=== PATIENT | female | born 1945 | race Caucasian/White ===

== ENCOUNTER → 2017-08-01 12:31 | Outpatient (CLI) | payer MEDICARE, OTHER, SELFPAY ==
[2017-08-01 12:54] LABS: Basophils % 0.7 % (0.1-2.0); Eosinophils # 0.1 K/mm3 (0.0-0.4); Eosinophils % 3.4 % (0.1-12.0); Hematocrit 36.6 % (37.0-47.0); Hemoglobin 11.5 g/dL (12.2-16.2); Lymphocytes # 1.4 K/mm3 (0.7-4.5); Lymphocytes % 34.6 K/mm3 (10-50); Mean Corpuscular HGB Conc 31.4 g/dL (31.8-35.4); Mean Corpuscular Hemoglobin 32.4 pg (27.0-31.2); Mean Corpuscular Volume 103.3 fl (81-99); Mean Platelet Volume 7.9 fl (7.4-10.4); Monocytes # 0.3 K/mm3 (0.1-1.0); Monocytes % 7.1 % (1.7-9.3); Neutrophils # 2.2 K/mm3 (1.8-7.8); Neutrophils % 54.1 % (37.0-80.0); Platelet Count 166 K/mm3 (142-424); Red Blood Count 3.55 M/mm3 (4.20-5.40); Red Cell Distribution Width 13.8 % (11.5-17.5); White Blood Count 4.1 K/mm3 (4.8-10.8)
[2017-08-02 08:31] LABS: Iron 88 ug/dL (27-139); UIBC 190 ug/dL (118-369)
[2017-08-02 09:34] LABS: Iron Saturation 32 % (15-55)
== END ==
PROVIDERS: PCP Emergency Medicine; Visit Provider Internal Medicine
DX: D64.9 Anemia, unspecified (principal)
CPT/HCPCS: 83550; 85025

== ENCOUNTER → 2017-08-10 10:30 | Outpatient (CLI) | payer MEDICARE, OTHER, SELFPAY ==
--- NOTE | 2017-08-10 10:35 | XR_ITS ---
XR pelvis 1-2V HISTORY: Pain ITS.REASON: back pain ORDERING PHYSICIAN: JESSICA Valencia PATIENT AGE: 72 years COMPARISON: None FINDINGS: There is a total left hip prosthesis present which is in good alignment. No acute fracture or dislocation is evident. There are mild osteoarthritic changes of the right hip. IMPRESSION: No acute finding. 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
--- NOTE | 2017-08-10 10:35 | XR_ITS ---
EXAM: XR thoracic spine 3V HISTORY: ITS.REASON: thoracic back pain COMPARISON: None FINDINGS: There is mild lower thoracic curvature convex left. Marginal osteophytes are present in the lower thoracic spine. No acute fracture or dislocation. Mild multilevel degenerative disc disease is present in the midthoracic spine. There is mild wedging involving what appears to represent T7 without obvious retropulsion. This is unchanged from a prior lateral chest radiograph of 09/14/2016. No lytic or blastic change. IMPRESSION: Thoracic spondylosis with multilevel osteophytes and mild retained disc disease and mild chronic wedging of T7
--- NOTE | 2017-08-10 10:35 | XR_ITS ---
EXAM: XR lumbar spine min 4V HISTORY: Low back pain ITS.REASON: back pain ORDERING PHYSICIAN: JESSICA Valencia PATIENT AGE: 72 years COMPARISON: None FINDINGS: There is mild lumbar scoliosis convex right measuring 11 degrees. There is a mild rotary component to the scoliosis. There is multilevel degenerative disc disease from T12 to S1. This is worse at L5-S1 and L1-L2. Small anterior osteophytes are present from L1 to S1. Facet arthritic changes are also noted at L4-5 and L5-S1. No acute fracture or dislocation. No lytic or blastic change. IMPRESSION: Dextroscoliosis of the lumbar spine with adjacent disc disease and facet arthritic change as described above.
== END ==
PROVIDERS: PCP Physician Assistant; Visit Provider Physician Assistant
DX: M54.6 Pain in thoracic spine (principal); M54.41 Lumbago with sciatica, right side
CPT/HCPCS: 72072; 72110; 72170

== ENCOUNTER → 2017-10-17 09:56 | Outpatient (CLI) | payer MEDICARE, OTHER, SELFPAY ==
--- NOTE | 2017-10-17 09:57 | MM_ITS ---
MM Dig screening mamm BI w/CAD CAD Screening COMPARISON: Digital mammograms 09/18/2016 and 08/13/2012 INDICATION: There is no personal or family history of breast cancer TECHNIQUE: Standard CC and MLO images were obtained. R2 CAD reviewed. FINDINGS: Prominent heterogenic fibroglandular densities are seen in the central portions of both breast somewhat lessening the sensitivity of mammography. There is a collection of microcalcifications in the subareolar region of each breast only seen on the CAD images. They are likely benign but were not definitely present previously. Recommend the patient return for spot compression magnification views of the subareolar region of each breast. There is faint arterial calcification in each breast. IMPRESSION: Diffuse heterogenic density with possible new microcalcifications in each breast BI-RADS Category: 0 Need Additional Imaging Evaluation RECOMMENDED FOLLOW-UP: IMM - IMMEDIATE FOLLOW-UP RECOMMENDED (A letter has been sent to the patient regarding results of the study.)
== END ==
PROVIDERS: PCP Physician Assistant; Visit Provider Emergency Medicine
DX: Z12.31 Encounter for screening mammogram for malignant neoplasm of breast (principal)
CPT/HCPCS: 77067

== ENCOUNTER → 2017-10-31 12:49 | Outpatient (CLI) | payer MEDICARE, OTHER, SELFPAY ==
--- NOTE | 2017-10-31 12:50 | MM_ITS ---
MM Dig spot mag LT, MM Dig spot mag RT INDICATION: Follow-up abnormal mammogram ORDERING PHYSICIAN: JESSICA Valencia PATIENT AGE: 72 years COMPARISON: 10/17/2017, 09/18/2016, 08/27/2012 TECHNIQUE: Magnification views performed of both breasts FINDINGS: Left breast: Benign-appearing vascular calcifications are present. No suspicious microcalcifications are evident. Right breast: Benign-appearing calcification noted in the retroareolar region similar to the previous exam of 09/18/2016. No suspicious microcalcifications evident. IMPRESSION: Benign findings, no evidence of malignancy BI-RADS Category: 2 Benign Finding(s) RECOMMENDED FOLLOW-UP: 1YR - 1 YEAR FOLLOW-UP (A letter has been sent to the patient regarding results of the study.)
== END ==
PROVIDERS: PCP Physician Assistant; Visit Provider Physician Assistant
DX: R92.8 Other abnormal and inconclusive findings on diagnostic imaging of breast (principal)
CPT/HCPCS: 77065; 77066

== ENCOUNTER → 2018-01-09 09:57 | Outpatient (REF) | payer MEDICARE, OTHER, SELFPAY ==
[2018-01-09 14:04] LABS: Basophils % 0.4 % (0.1-2.0); Eosinophils # 0.1 K/mm3 (0.0-0.4); Eosinophils % 3.2 % (0.1-12.0); Hematocrit 35.4 % (37.0-47.0); Hemoglobin 11.1 g/dL (12.2-16.2); Lymphocytes # 1.6 K/mm3 (0.7-4.5); Lymphocytes % 38.6 K/mm3 (10-50); Mean Corpuscular HGB Conc 31.5 g/dL (31.8-35.4); Mean Corpuscular Volume 101.6 fl (81-99); Mean Platelet Volume 8.1 fl (7.4-10.4); Monocytes # 0.3 K/mm3 (0.1-1.0); Monocytes % 7.3 % (1.7-9.3); Neutrophils # 2.1 K/mm3 (1.8-7.8); Neutrophils % 50.6 % (37.0-80.0); Platelet Count 170 K/mm3 (142-424); Red Blood Count 3.49 M/mm3 (4.20-5.40); Red Cell Distribution Width 14.8 % (11.5-17.5); White Blood Count 4.2 K/mm3 (4.8-10.8)
[2018-01-09 14:31] LABS: Alanine Aminotransferase 32 U/L (12-78); Albumin Level 3.5 gm/dL (3.4-5.0); Albumin/Globulin Ratio 1.1 (1.1-1.8); Alkaline Phosphatase 45 U/L (46-116); Anion Gap 14.3 mEq/L (5-15); Aspartate Amino Transferase 12 U/L (15-37); Bilirubin,Total 0.5 mg/dL (0.2-1.0); Blood Urea Nitrogen 15 mg/dL (7-18); Calcium 9.1 mg/dL (8.5-10.1); Carbon Dioxide 27 mmol/L (21.0-32.0); Chloride 106 mmol/L (98-107); Chol/HDL Ratio 2.1 (1-3.5); Cholesterol 192 mg/dL (140-200); Creatinine,Serum 0.89 mg/dL (0.55-1.02); Estimated Glomerular Filt Rate 62 ml/min (>60); GFR (African American) 75 ML/MIN (>60); Globulin 3.2 gm/dl (1.3-3.2); Glucose 92 mg/dL (74-106); HDL Cholesterol 91 mg/dL (29-89); Potassium 4.3 mmoL/L (3.5-5.1); Sodium 143 mmol/L (136-145); T4 (Thyroxine) 8.8 ug/dl (4.7-13.3); Thyroid Stimulating Hormone 4.01 uIU/ml (0.358-3.740); Total Protein,Serum 6.7 gm/dL (6.4-8.2)
[2018-01-09 14:51] LABS: LDL Cholesterol 83 mg/dL (0-130); Triglycerides 90 mg/dL (30-200); VLDL Cholesterol 18 mg/dL (0-40)
[2018-01-11 13:22] LABS: Vitamin D 25 Hydroxy 27.3 ng/mL (30.0-100.0)
== END ==
LOC: LAB 09:57
PROVIDERS: Visit Provider Physician Assistant
DX: E03.9 Hypothyroidism, unspecified (principal); E78.5 Hyperlipidemia, unspecified; D64.9 Anemia, unspecified
CPT/HCPCS: 80053; 80061; 82652; 84436; 84443; 85025

== ENCOUNTER → 2018-03-07 07:41 | Outpatient (CLI) | payer MEDICARE, OTHER, SELFPAY | PROVIDERS: PCP Emergency Medicine; Visit Provider Emergency Medicine | DX: M50.90 Cervical disc disorder, unspecified, unspecified cervical region (principal) ==

== ENCOUNTER → 2018-04-15 09:38 | Outpatient (CLI) | payer MEDICARE, OTHER, SELFPAY ==
[2018-04-15 14:21] LABS: Basophils % 0.8 % (0.1-2.0); Eosinophils # 0.1 K/mm3 (0.0-0.4); Hematocrit 36.9 % (37.0-47.0); Hemoglobin 11.5 g/dL (12.2-16.2); Lymphocytes # 1.2 K/mm3 (0.7-4.5); Lymphocytes % 29.5 % (10-50); Mean Corpuscular Hemoglobin 30.7 pg (27.0-31.2); Mean Corpuscular Volume 98.9 fl (81-99); Mean Platelet Volume 8.2 fl (7.4-10.4); Monocytes # 0.3 K/mm3 (0.1-1.0); Monocytes % 7.6 % (1.7-9.3); Neutrophils # 2.4 K/mm3 (1.8-7.8); Neutrophils % 59.1 % (37.0-80.0); Platelet Count 198 K/mm3 (142-424); Red Blood Count 3.74 M/mm3 (4.20-5.40); Red Cell Distribution Width 13.4 % (11.5-17.5)
[2018-04-15 14:35] LABS: Chol/HDL Ratio 2.3 (1-3.5); Cholesterol 164 mg/dL (140-200); HDL Cholesterol 70 mg/dL (29-89); LDL Cholesterol 75 mg/dL (0-130); T4 (Thyroxine) 9.4 ug/dl (4.7-13.3); Thyroid Stimulating Hormone 0.57 uIU/ml (0.358-3.740); Triglycerides 97 mg/dL (30-200); VLDL Cholesterol 19 mg/dL (0-40)
[2018-04-16 08:10] LABS: Alanine Aminotransferase 30 U/L (12-78); Albumin Level 3.9 gm/dL (3.4-5.0); Albumin/Globulin Ratio 1.2 (1.1-1.8); Alkaline Phosphatase 63 U/L (46-116); Anion Gap 15.2 mEq/L (5-15); Aspartate Amino Transferase 14 U/L (15-37); Bilirubin,Total 0.3 mg/dL (0.2-1.0); Blood Urea Nitrogen 14 mg/dL (7-18); Calcium 9.1 mg/dL (8.5-10.1); Carbon Dioxide 26 mmol/L (21.0-32.0); Chloride 103 mmol/L (98-107); Creatinine,Serum 0.83 mg/dL (0.55-1.02); Estimated Glomerular Filt Rate 67 ml/min (>60); GFR (African American) 81 ML/MIN (>60); Globulin 3.3 gm/dl (1.3-3.2); Glucose 91 mg/dL (74-106); Potassium 4.2 mmoL/L (3.5-5.1); Sodium 140 mmol/L (136-145); Total Protein,Serum 7.2 gm/dL (6.4-8.2)
[2018-04-16 15:37] LABS: Ferritin 382 ng/mL (8-388)
[2018-04-18 08:27] LABS: Iron 59 ug/dL (27-139); UIBC 208 ug/dL (118-369)
[2018-04-18 09:41] LABS: Iron Saturation 22 % (15-55)
== END ==
PROVIDERS: Visit Provider Physician Assistant
DX: N89.8 Other specified noninflammatory disorders of vagina (principal); D64.9 Anemia, unspecified; R22.0 Localized swelling, mass and lump, head; E03.9 Hypothyroidism, unspecified
CPT/HCPCS: 80053; 80061; 82652; 82728; 83540; 83550; 84436; 84443; 85025; 87210

== ENCOUNTER → 2018-04-15 14:07 | Outpatient (CLI) | payer MEDICARE, OTHER, SELFPAY | PROVIDERS: Visit Provider Physician Assistant | DX: D64.9 Anemia, unspecified (principal); N89.8 Other specified noninflammatory disorders of vagina; R22.0 Localized swelling, mass and lump, head; R22.1 Localized swelling, mass and lump, neck; I25.10 Atherosclerotic heart disease of native coronary artery without angina pectoris; I10 Essential (primary) hypertension; E03.9 Hypothyroidism, unspecified | CPT/HCPCS: 80053; 80061; 82652; 82728; 83540; 83550; 84436; 84443; 85025; 87210 ==

== ENCOUNTER → 2018-05-03 14:07 | Outpatient (CLI) | payer MEDICARE, OTHER, SELFPAY ==
--- NOTE | 2018-05-03 14:11 | US_ITS ---
US soft tissue head and neck CLINICAL INDICATION: ITS.REASON: swelling left side of neck ORDERING PHYSICIAN: JESSICA Valencia PATIENT AGE: 72 years Comparison: None FINDINGS: General survey is performed of the left neck at the palpable abnormality. There is an area of heterogeneous echogenicity measuring 3 x 1.6 cm which may represent a lipoma. This does not represent a cystic collection. IMPRESSION: Palpable abnormality of the left neck may represent a 3 x 1.6 cm lipoma
== END ==
PROVIDERS: PCP Emergency Medicine; Visit Provider Physician Assistant
DX: R22.0 Localized swelling, mass and lump, head (principal); R22.1 Localized swelling, mass and lump, neck
CPT/HCPCS: 76536

== ENCOUNTER → 2018-08-08 09:47 | Outpatient (CLI) | payer MEDICARE, OTHER, SELFPAY ==
[2018-08-08 13:56] LABS: Basophils % 0.8 % (0.1-2.0); Eosinophils # 0.1 K/mm3 (0.0-0.4); Eosinophils % 3.9 % (0.1-12.0); Hematocrit 35.8 % (37.0-47.0); Hemoglobin 11.5 g/dL (12.2-16.2); Lymphocytes # 1.2 K/mm3 (0.7-4.5); Lymphocytes % 35.4 % (10-50); Mean Corpuscular HGB Conc 32.2 g/dL (31.8-35.4); Mean Corpuscular Hemoglobin 31.7 pg (27.0-31.2); Mean Corpuscular Volume 98.5 fl (81-99); Mean Platelet Volume 8.5 fl (7.4-10.4); Monocytes # 0.3 K/mm3 (0.1-1.0); Monocytes % 8.4 % (1.7-9.3); Neutrophils # 1.7 K/mm3 (1.8-7.8); Neutrophils % 51.5 % (37.0-80.0); Platelet Count 168 K/mm3 (142-424); Red Blood Count 3.63 M/mm3 (4.20-5.40); Red Cell Distribution Width 13.4 % (11.5-17.5); White Blood Count 3.3 K/mm3 (4.8-10.8)
[2018-08-08 14:08] LABS: Alanine Aminotransferase 24 U/L (12-78); Albumin Level 3.5 gm/dL (3.4-5.0); Albumin/Globulin Ratio 1.2 (1.1-1.8); Alkaline Phosphatase 49 U/L (46-116); Aspartate Amino Transferase 14 U/L (15-37); Bilirubin,Total 0.3 mg/dL (0.2-1.0); Blood Urea Nitrogen 13 mg/dL (7-18); Calcium 9.2 mg/dL (8.5-10.1); Carbon Dioxide 25 mmol/L (21.0-32.0); Chloride 108 mmol/L (98-107); Chol/HDL Ratio 2.4 (1-3.5); Cholesterol 172 mg/dL (140-200); Creatinine,Serum 0.75 mg/dL (0.55-1.02); Estimated Glomerular Filt Rate 75 ml/min (>60); GFR (African American) 91 ML/MIN (>60); Glucose 91 mg/dL (74-106); HDL Cholesterol 73 mg/dL (29-89); LDL Cholesterol 78 mg/dL (0-130); Sodium 145 mmol/L (136-145); T4 (Thyroxine) 7.8 ug/dl (4.7-13.3); Thyroid Stimulating Hormone 0.53 uIU/ml (0.358-3.740); Total Protein,Serum 6.5 gm/dL (6.4-8.2); Triglycerides 106 mg/dL (30-200); VLDL Cholesterol 21 mg/dL (0-40)
[2018-08-09 09:01] LABS: Vitamin D 25 Hydroxy 51.2 ng/mL (30.0-100.0)
== END ==
PROVIDERS: Visit Provider Physician Assistant
DX: N89.8 Other specified noninflammatory disorders of vagina (principal); E03.9 Hypothyroidism, unspecified; E78.5 Hyperlipidemia, unspecified; E55.9 Vitamin D deficiency, unspecified
CPT/HCPCS: 80053; 80061; 82652; 84436; 84443; 85025; 87210

== ENCOUNTER → 2018-08-19 09:24 | Outpatient (CLI) | payer MEDICARE, OTHER, SELFPAY ==
[2018-08-21 09:26] LABS: Peripheral Smear Review Scanned Result
== END ==
PROVIDERS: Visit Provider Physician Assistant
DX: D70.9 Neutropenia, unspecified (principal)
CPT/HCPCS: 36415; 85060

== ENCOUNTER → 2018-11-19 10:37 | Outpatient (CLI) | payer MEDICARE, OTHER, SELFPAY ==
--- NOTE | 2018-11-19 10:41 | MM_ITS ---
MM Dig screening mamm BI w/CAD CAD Screening COMPARISON: Digital mammograms with CAD 09/18/2016 INDICATION: There is no personal or family history of breast cancer TECHNIQUE: Standard CC and MLO images were obtained. R2 CAD reviewed. FINDINGS: Moderate diffuse breast density is seen in both breast. There is faint arterial calcification in each breast. There is no suspicious lesion and there are no suspicious microcalcifications. IMPRESSION: Fibrofatty parenchyma with no suspicious lesion seen BI-RADS Category: 2 Benign Finding(s) RECOMMENDED FOLLOW-UP: 1YR - 1 YEAR FOLLOW-UP (A letter has been sent to the patient regarding results of the study.)
== END ==
PROVIDERS: PCP Emergency Medicine; Visit Provider Emergency Medicine
DX: Z12.31 Encounter for screening mammogram for malignant neoplasm of breast (principal)
CPT/HCPCS: 77067

== ENCOUNTER → 2018-12-13 13:35 | Outpatient (CLI) | payer MEDICARE, OTHER, SELFPAY | PROVIDERS: Visit Provider Nurse Practitioner Family | DX: S51.811A Laceration without foreign body of right forearm, initial encounter (principal) | CPT/HCPCS: 87070; 87205 ==

== ENCOUNTER → 2019-01-27 16:01 | Outpatient (CLI) | payer MEDICARE, OTHER, SELFPAY | PROVIDERS: Visit Provider Physician Assistant | DX: N89.8 Other specified noninflammatory disorders of vagina (principal) | CPT/HCPCS: 87210 ==

== ENCOUNTER → 2019-03-31 13:59 | Outpatient (CLI) | payer MEDICARE, OTHER, SELFPAY ==
[2019-03-31 14:14] LABS: Basophils % 0.9 % (0.1-2.0); Eosinophils # 0.3 K/mm3 (0.0-0.4); Eosinophils % 5.6 % (0.1-12.0); Hematocrit 36.5 % (37.0-47.0); Hemoglobin 11.3 g/dL (12.2-16.2); Lymphocytes # 1.4 K/mm3 (0.7-4.5); Lymphocytes % 28.9 % (10-50); Mean Corpuscular Hemoglobin 31.8 pg (27.0-31.2); Mean Corpuscular Volume 102.7 fl (81-99); Mean Platelet Volume 9.7 fl (7.4-10.4); Monocytes # 0.4 K/mm3 (0.1-1.0); Monocytes % 8.3 % (1.7-9.3); Neutrophils # 2.6 K/mm3 (1.8-7.8); Neutrophils % 56.4 % (37.0-80.0); Platelet Count 186 K/mm3 (142-424); Red Blood Count 3.56 M/mm3 (4.20-5.40); Red Cell Distribution Width 13.8 % (11.5-17.5); White Blood Count 4.7 K/mm3 (4.8-10.8)
[2019-03-31 16:35] LABS: Alanine Aminotransferase 23 U/L (12-78); Albumin Level 3.5 gm/dL (3.4-5.0); Albumin/Globulin Ratio 1.2 (1.1-1.8); Alkaline Phosphatase 54 U/L (46-116); Anion Gap 15.1 mEq/L (5-15); Aspartate Amino Transferase 15 U/L (15-37); Bilirubin,Total 0.3 mg/dL (0.2-1.0); Blood Urea Nitrogen 15 mg/dL (7-18); Calcium 8.9 mg/dL (8.5-10.1); Carbon Dioxide 23 mmol/L (21.0-32.0); Chloride 109 mmol/L (98-107); Chol/HDL Ratio 2.1 (1-3.5); Cholesterol 173 mg/dL (140-200); Creatinine,Serum 0.83 mg/dL (0.55-1.02); Estimated Glomerular Filt Rate 67 ml/min (>60); GFR (African American) 81 ML/MIN (>60); Globulin 2.9 gm/dl (1.3-3.2); Glucose 95 mg/dL (74-106); HDL Cholesterol 83 mg/dL (29-89); LDL Cholesterol 68 mg/dL (0-130); Potassium 4.1 mmoL/L (3.5-5.1); Sodium 143 mmol/L (136-145); T4 (Thyroxine) 9.6 ug/dl (4.7-13.3); Thyroid Stimulating Hormone 0.33 uIU/ml (0.358-3.740); Total Protein,Serum 6.4 gm/dL (6.4-8.2); Triglycerides 111 mg/dL (30-200); VLDL Cholesterol 22 mg/dL (0-40)
[2019-04-02 10:22] LABS: Vitamin D 25 Hydroxy 71.2 ng/mL (30.0-100.0)
[2019-04-02 10:24] LABS: Folate >20.0 ng/mL (>3.0); Vitamin B12 388 pg/mL (232-1245)
== END ==
PROVIDERS: Visit Provider Physician Assistant
DX: D64.9 Anemia, unspecified (principal); E03.9 Hypothyroidism, unspecified; R53.83 Other fatigue
CPT/HCPCS: 80053; 80061; 82607; 82652; 82746; 84436; 84443; 85025

== ENCOUNTER → 2019-05-22 10:11 | Outpatient (CLI) | payer MEDICARE, OTHER, SELFPAY ==
[2019-05-22 10:54] LABS: Basophils % 0.6 % (0.1-2.0); Eosinophils # 0.3 K/mm3 (0.0-0.4); Eosinophils % 6.6 % (0.1-12.0); Hematocrit 35.6 % (37.0-47.0); Hemoglobin 11.1 g/dL (12.2-16.2); Lymphocytes # 1.4 K/mm3 (0.7-4.5); Lymphocytes % 30.9 % (10-50); Mean Corpuscular HGB Conc 31.1 g/dL (31.8-35.4); Mean Corpuscular Hemoglobin 30.8 pg (27.0-31.2); Mean Corpuscular Volume 99.2 fl (81-99); Mean Platelet Volume 8.9 fl (7.4-10.4); Monocytes # 0.3 K/mm3 (0.1-1.0); Monocytes % 7.5 % (1.7-9.3); Neutrophils # 2.4 K/mm3 (1.8-7.8); Neutrophils % 54.4 % (37.0-80.0); Platelet Count 171 K/mm3 (142-424); Red Blood Count 3.59 M/mm3 (4.20-5.40); Red Cell Distribution Width 13.4 % (11.5-17.5); White Blood Count 4.4 K/mm3 (4.8-10.8)
--- NOTE | 2019-05-22 10:56 | XR_ITS ---
PROCEDURE: XR CHEST 2V CLINICAL HISTORY: Pre op Left TKR Cough and congestion COMPARISON: CXR CHEST(2 VIEWS-NOT PORTABLE) from 03/30/2015 CXR1 CHEST-PORTABLE from 02/21/2016 CXR CHEST(2 VIEWS-NOT PORTABLE) from 09/14/2016 FINDINGS: The cardiomediastinal silhouette and pulmonary vascularity are within normal limits. There is mild tortuosity/ectasia of the descending thoracic aorta not significantly changed. Lungs are clear. There is an old left 5th rib fracture. No acute bony abnormalities. IMPRESSION: No change with no acute finding Dictated by: Isrrael Suggs MD 05/22/2019 13:19 Electronically signed by Isrrael Suggs MD in [place] 05/22/2019 13:19
[2019-05-22 10:57] LABS: Microscopic, Urine URINE MICROSCOPIC (MICROSCOPIC)
--- NOTE | 2019-05-22 10:57 | ECG_ITS ---
APPROVED REPORT Exam: Resting ECG HR:59 bpm ECG Measurements Heart Rate 59 AXES ME 198 P -1 QRSd 78 QRS 2 QT 412 T -5 QTc 407 <Conclusion> Sinus bradycardia Otherwise normal ECG Electronically signed by : Robert Patel, 05/22/2019 12:55:09
[2019-05-22 11:04] LABS: Prothrombin Time 10.4 seconds (9.4-11.8)
[2019-05-22 11:16] LABS: Appearance,Urine CLEAR (Clear); Bilirubin,Urine Negative (Negative); Blood, Urine Negative (Negative); Color,Urine YELLOW (Yellow); Glucose,Urine (UA) Negative (Negative); Ketones,Urine TRACE (Negative); Leukocyte Esterase,Urine Negative (Negative); Nitrate,Urine Negative (Negative); PH,Urine 5.5 (5.0-8.5); Protein,Urine Negative (Negative); Specific Gravity, Urine >= 1.030 (1.005-1.030); Urobilinogen,Urine 0.2 EU/dl (0.2)
[2019-05-22 11:22] LABS: WBC,Urine Occasional #/hpf (0-3)
[2019-05-22 12:10] LABS: Alanine Aminotransferase 28 U/L (12-78); Albumin Level 3.5 gm/dL (3.4-5.0); Albumin/Globulin Ratio 1.2 (1.1-1.8); Alkaline Phosphatase 59 U/L (46-116); Anion Gap 13.8 mEq/L (5-15); Aspartate Amino Transferase 16 U/L (15-37); Bilirubin,Total 0.4 mg/dL (0.2-1.0); Blood Urea Nitrogen 20 mg/dL (7-18); Carbon Dioxide 25 mmol/L (21.0-32.0); Chloride 106 mmol/L (98-107); Creatinine,Serum 0.97 mg/dL (0.55-1.02); Estimated Glomerular Filt Rate 56 ml/min (>60); GFR (African American) 68 ML/MIN (>60); Globulin 2.9 gm/dl (1.3-3.2); Glucose 92 mg/dL (74-106); Potassium 4.8 mmoL/L (3.5-5.1); Sodium 140 mmol/L (136-145); Total Protein,Serum 6.4 gm/dL (6.4-8.2)
[2019-05-22 13:23] LABS: Hemoglobin A1C 5.6 % (0.0-7.0)
== END ==
PROVIDERS: PCP Emergency Medicine; Referring Provider Orthopaedic Surgery; Visit Provider Physician Assistant
DX: M17.12 Unilateral primary osteoarthritis, left knee (principal); Z01.818 Encounter for other preprocedural examination; R73.9 Hyperglycemia, unspecified; I25.10 Atherosclerotic heart disease of native coronary artery without angina pectoris
CPT/HCPCS: 36415; 71046; 80053; 81001; 83036; 85025; 85610; 85730; 93005

== ENCOUNTER → 2019-05-26 06:08 | Outpatient (CLI) | payer MEDICARE, OTHER, SELFPAY ==
--- NOTE | 2019-05-26 06:10 | CA_ITS ---
APPROVED REPORT EXAM: Comprehensive 2D, Doppler, and color-flow Echocardiogram Quality Compliance Consultant: Camille Vaz RT(R) Ht: 5 ft 7 in Wt: 165lbs BSA: 1.86 BP: 132/50 mmHg Indications: Fatigue, edema, HTN, hyperlipidemia M-Mode Dimensions RVDd 2.01 cm (0.9-2.6) LVDd 4.43 cm (3.5-5.7) LVDs 3.29 cm (3.5-5.7) IVSd 1.14 cm (0.6-1.1) PWd 1.01 cm (0.6-1.1) EF (Teich) 50.80% FS 25.70% EDV (Teich) 89.10 mL ESV (Teich) 43.80 mL LV Diastology E/A Ratio 0.69 Mitral Valve MV A Velocity 120.00 (40-130 cm/s) Left Ventricle Left atrium is mildly enlarged, left ventricle is normal size, mild concentric left ventricular hypertrophy, visually estimated ejection fraction 55% with no regional wall motion abnormality, grade 1 diastolic dysfunction seen without tissue Doppler evidence of raise left atrial pressure. Endocardial surfaces are poorly visualized. Right Ventricle Right atrium and right ventricular normal size and contractility. Aortic Valve Aortic valve is thickened and calcified, there is no aortic stenosis, there is mild aortic insufficiency. Mitral Valve Mitral valve is grossly normal, there is mild mitral regurgitation. Tricuspid Valve Tricuspid valve is grossly normal, there is mild tricuspid regurgitation, tricuspid regurgitation jet close is inadequate for calculation of the right ventricular systolic pressure. Pulmonic Valve Pulmonic valve is poorly visualized. Great Vessels Aortic root is normal size. Pericardium No significant pericardial effusion noted. Conclusion 1. Mildly enlarged left atrium, normal left ventricular size, mild concentric left ventricular hypertrophy, visually estimated ejection fraction 55% with no regional wall motion abnormality, grade 1 diastolic dysfunction seen without tissue Doppler evidence of raise left atrial pressure. 2. Thickened and calcified aortic valve without aortic stenosis, there is mild aortic insufficiency. 3. Mild mitral and tricuspid regurgitation. 4. No significant pericardial effusion noted. Electronically signed by : Uriah Alanis, 05/27/2019 06:23:53
--- NOTE | 2019-05-26 06:10 | CA_ITS ---
APPROVED REPORT Exam: Pharmacologic Technologist: praveena saldivar, Ht: 5 ft 7 in Wt: 165 lbs BSA: 1.86 m2 BP: 118/61 mmHg Indications: PalpATATIONS, Pre-Op Medical History Medications: Lisinopril,,,,, Asa,,,,, Lipitor,,,,, Famotidine,,,,, Bisprolol,,,,, Nitro,,,,, Allergies: morphine Cardiac Risk Factors: HTN, Hyperlipidemia, FHX of CAD Stress Test Details Test: LEXISCAN HR Resting HR: 82 bpm Max Heart Rate (APMHR): 144 bpm Max HR Achieved: 113 bpm Target HR (85% APMHR): 122 bpm % of APMHR: 78 Recovery HR: 102 bpm BP Resting BP: 118/61 mmHg Max BP: 178/85 mmHg Recovery BP: 141.0/79.0 mmHg ECG Resting ECG: Sinus Rhythm Clinical Exercise duration: 04:04 min Highest Stage Achieved: Exercise capacity: 1.0 METs Stress ECG Conclusion Lexiscan completed. Patient had no c/o CP. She did have some SOB during peak infusion along with dizziness that resolved in recovery. Occasional PVC. Less than 1.5mm ST Depression. Images follow. Test Summary REST 03:53 . . 82 . 118/ 61 . . Stage 1 01:00 . . 110 . . . . Stage 2 01:00 . . 113 . 178/ 85 . . Stage 3 01:00 . . 108 . 150/ 80 . . Stage 4 01:00 . . 105 . 159/ 75 . . Stage 4 01:04 . . 105 . 159/ 75 . Stop exercise at 04:04 RECOVERY 01:00 . . 102 . 141/ 79 . . RECOVERY 02:00 . . 100 . 155/ 73 . . RECOVERY 03:00 . . 102 . 155/ 73 . . RECOVERY 04:00 . . 100 . 155/ 73 . . RECOVERY 05:00 . . 97 . 153/ 69 . . RECOVERY 06:00 . . 95 . 153/ 69 . . RECOVERY 06:40 . . 96 . 156/ 73 . . Electronically signed by : Uriah Alanis, 05/27/2019 05:39:42
--- NOTE | 2019-05-26 06:16 | NM_ITS ---
APPROVED REPORT Exam: Nuclear Stress Test Indication: ABN EKG..PRE-OP Patient Location: Outpatient Stress Tech: Yolanda Romano [place] Tech:Lilli Batista LNE RT(R)(N) Ht: 5 ft 7 in Wt: 165 lbs Bra Size: 38D HR: 72 bpm BP: 118/61 mmHg BSA: 1.86 m2 BMI: 25.8 History: ABN EKG..PRE-OP Procedure: Patient received a 0.4 mg of intravenous Lexiscan, resting heart rate 72 bpm, resting blood pressure 118/61 mmHg, with Lexiscan maximum heart rate achived was 112 bpm which is Less than 85 % of the maximum predicted heart rate and blood pressure was 178/85 mmHg. With Lexiscan, patient denied any complaint of chest pain. Electrocardiogram Resting electrocardiogram showed sinus rhythm, with Lexiscan there is less than 1.[address] segment depression noted from the baseline EKG. The EKG portion of the Lexiscan Myoview is nondiagnostic. Cardiac Stress and Resting SPECT Images: Cardiac Stress and Resting SPECT images were obtained using technetium 99m Myoview 31.0 mCi stress and 10.91 mCi at rest. Gated SPECT with analysis of segmental wall motion and calculation of the ejection fraction also done. Cardiac stress and resting SPECT images show uniform myocardial activity without segmental perfusion abnormality, computer derived ejection fraction is over 65% with no regional wall motion abnormality, right ventricle is normal size and contractility. Conclusion: 1. The EKG portion of the Lexiscan Myoview is nondiagnostic. 2. No scintigraphic evidence of reversible ischemia seen, computer derived ejection fraction is over 65% with no regional wall motion abnormality, right ventricle is normal size and contractility. 3. Normal Lexiscan Myoview study. Electronically signed by : Uriah Alanis, 05/27/2019 05:41:34
--- NOTE | 2019-05-26 10:40 | HMH.ITSHM ---
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 [] omeprazole aborvastatin bisoprolol lisinopril nitro
== END ==
PROVIDERS: PCP Physician Assistant; Visit Provider Urology
DX: I25.10 Atherosclerotic heart disease of native coronary artery without angina pectoris (principal); I11.9 Hypertensive heart disease without heart failure; R53.83 Other fatigue; E78.49 Other hyperlipidemia
CPT/HCPCS: 78452; 93017; 93306; A9502; J2785

== ENCOUNTER → 2019-05-30 11:43 | Outpatient (CLI) | payer MEDICARE, OTHER, SELFPAY ==
[2019-05-30 14:37] LABS: Thyroid Stimulating Hormone 0.16 uIU/ml (0.358-3.740)
== END ==
PROVIDERS: Visit Provider Physician Assistant
DX: E03.9 Hypothyroidism, unspecified (principal)
CPT/HCPCS: 36415; 84443

== ENCOUNTER → 2019-08-28 10:38 | Outpatient (CLI) | payer MEDICARE, OTHER, SELFPAY ==
[2019-08-28 12:26] LABS: Free T4 (Free Thyroxine) 1.14 ng/dl (0.78-2.19)
[2019-08-28 12:41] LABS: Thyroid Stimulating Hormone 0.43 uIU/mL (0.465-4.68)
== END ==
PROVIDERS: Visit Provider Physician Assistant
DX: E03.9 Hypothyroidism, unspecified (principal)
CPT/HCPCS: 36415; 84439; 84443

== ENCOUNTER → 2019-11-03 11:41 | Outpatient (CLI) | payer MEDICARE, OTHER, SELFPAY ==
[2019-11-03 11:45] LABS: MANUAL DIFFERENTIAL MANUAL DIFFERENTIAL (MANUAL DIFF)
--- NOTE | 2019-11-03 12:00 | XR_ITS ---
PROCEDURE: XR CHEST 2V CLINICAL HISTORY: hypertension, pre-op tka COMPARISON: CXR1 CHEST-PORTABLE from 02/21/2016 CXR CHEST(2 VIEWS-NOT PORTABLE) from 09/14/2016 XR CHEST 2V from 05/22/2019 FINDINGS: Mild degenerative lower thoracic scoliosis is present. Lung salcido, cardiac silhouette, and soft tissues are intact. IMPRESSION: Clear lung salcido, mild degenerative scoliosis Dictated by: Stoney Rogel 11/03/2019 14:57 Electronically signed by Stoney Rogel in [place] 11/03/2019 14:57
[2019-11-03 12:27] LABS: INR 0.97 (0.9-1.1)
[2019-11-03 12:29] LABS: Basophils # 0.1 K/mm3 (0-0.2); Eosinophils # 0.2 K/mm3 (0.0-0.4); Eosinophils % 3.5 % (0.1-12.0); Hematocrit 36.3 % (37.0-47.0); Hemoglobin 12.3 g/dL (12.2-16.2); Lymphocytes # 1.7 K/mm3 (0.7-4.5); Lymphocytes % 30.1 % (10-50); Mean Corpuscular HGB Conc 34.1 g/dL (31.8-35.4); Mean Corpuscular Hemoglobin 33.2 pg (27.0-31.2); Mean Corpuscular Volume 97.4 fl (81-99); Mean Platelet Volume 8.2 fl (7.4-10.4); Monocytes # 0.3 K/mm3 (0.1-1.0); Monocytes % 5.3 % (1.7-9.3); Neutrophils # 3.3 K/mm3 (1.8-7.8); Neutrophils % 60.1 % (37.0-80.0); Platelet Count 153 K/mm3 (142-424); Red Blood Count 3.72 M/mm3 (4.20-5.40); Red Cell Distribution Width 14.1 % (11.5-17.5); White Blood Count 5.5 K/mm3 (4.8-10.8)
[2019-11-03 13:17] LABS: Chloride 106 mmol/L (98-107); Potassium 4.9 mmoL/L (3.5-5.1); Sodium 137 mmol/L (136-145)
[2019-11-03 13:20] LABS: Alanine Aminotransferase 27 U/L (12-78); Albumin Level 4.2 g/dl (3.5-5.0); Albumin/Globulin Ratio 1.5 (1.1-1.8); Alkaline Phosphatase 66 U/L (38-126); Anion Gap 9.9 mEq/L (5-15); Aspartate Amino Transferase 26 U/L (14-36); Bilirubin,Total 0.5 mg/dl (0.2-1.3); Blood Urea Nitrogen 26 mg/dl (7-17); Calcium 9.6 mg/dl (8.4-10.2); Carbon Dioxide 26 mmol/L (22.0-30.0); Estimated Glomerular Filt Rate 54 ml/min (>60); GFR (African American) 65 ML/MIN (>60); Globulin 2.8 g/dL (1.3-3.2); Glucose 96 mg/dl (74-100)
[2019-11-03 13:50] LABS: Thyroid Stimulating Hormone 4.67 uIU/mL (0.465-4.68)
[2019-11-03 15:45] LABS: Lymphocytes % 33 % (10-50); Monocytes % 10 % (2-9); Neutrophils % 57 % (42-76); Total Cells Counted 100
[2019-11-03 20:16] LABS: Ovalocytes 1+; Platelet Estimate Normal; Stomatocytes 1+
[2019-11-04 11:09] LABS: Iron 127 ug/dL (37-170)
[2019-11-04 11:17] LABS: Total Iron Binding Capacity 304 ug/dL (265-497)
[2019-11-04 11:44] LABS: Ferritin 188 ng/ml (11.1-264)
[2019-11-05 08:40] LABS: Prealbumin 36 mg/dL (9-32)
== END ==
PROVIDERS: Visit Provider Physician Assistant
DX: M25.562 Pain in left knee (principal); Z01.818 Encounter for other preprocedural examination; I35.1 Nonrheumatic aortic (valve) insufficiency; E03.9 Hypothyroidism, unspecified; R53.83 Other fatigue; Z79.01 Long term (current) use of anticoagulants; D64.9 Anemia, unspecified
CPT/HCPCS: 36415; 71046; 80053; 82728; 83540; 83550; 84134; 84443; 85007; 85014; 85018; 85048; 85049; 85610; 85730

== ENCOUNTER → 2019-11-04 15:04 | Outpatient (CLI) | payer MEDICARE, OTHER, SELFPAY ==
[2019-11-04 15:10] LABS: Microscopic, Urine URINE MICROSCOPIC (MICROSCOPIC)
[2019-11-04 15:21] LABS: Appearance,Urine CLEAR (Clear); Bilirubin,Urine Negative (Negative); Blood, Urine Negative (Negative); Color,Urine YELLOW (Yellow); Glucose,Urine (UA) Negative (Negative); Ketones,Urine Negative (Negative); Leukocyte Esterase,Urine Negative (Negative); Nitrate,Urine Negative (Negative); Protein,Urine Negative (Negative); Urobilinogen,Urine 0.2 EU/dl (0.2)
[2019-11-04 19:15] LABS: Bacteria,Urine Trace /lpf; WBC,Urine Occasional #/hpf (0-3)
== END ==
PROVIDERS: Visit Provider Physician Assistant
DX: Z01.818 Encounter for other preprocedural examination (principal); M25.562 Pain in left knee
CPT/HCPCS: 81001

== ENCOUNTER → 2019-11-24 09:22 | Outpatient (CLI) | payer MEDICARE, OTHER, SELFPAY ==
--- NOTE | 2019-11-24 09:30 | MM_ITS ---
PROCEDURE: MM DIG SCREENING MAMM BI W/CAD Digital Breast Tomosynthesis Included CLINICAL INDICATION: screening There is no personal or family history of breast cancer. COMPARISON: [facility] MM Dig screening mamm BI w/CAD from 10/17/2017 MAGRT MM Dig spot mag RT from 10/31/2017 MAGLT MM Dig spot mag LT from 10/31/2017 DIG MAMM-SCREEN JOSE ALBERTO from 11/19/2018 TECHNIQUE: Standard CC and MLO images and 3D Tomosynthesis was obtained. R2 CAD reviewed. FINDINGS: Moderate diffuse somewhat heterogenic fibroglandular densities are seen in the central portions of both breasts. There is minimal arterial calcification in each breast. There is no suspicious lesion in either breast and no suspicious microcalcifications. IMPRESSION: Moderate breast density with no suspicious lesions seen BI-RAD Category: 2 Benign Finding(s) FOLLOW-UP: 1YR 1 Year Follow-up (A letter has been sent to the patient regarding results of the study.) Dictated by: Dr. Rafi Connor MD 11/26/2019 15:[address] Rafi Connor MD in [place] 11/26/2019 15:18
== END ==
PROVIDERS: PCP Emergency Medicine; Visit Provider Emergency Medicine
DX: Z12.31 Encounter for screening mammogram for malignant neoplasm of breast (principal)
CPT/HCPCS: 77063; 77067

== ENCOUNTER → 2020-05-19 10:57 | Outpatient (CLI) | payer MEDICARE, OTHER, SELFPAY ==
[2020-05-19 11:30] LABS: Basophils % 0.9 % (0.1-2.0); Eosinophils # 0.1 K/mm3 (0.0-0.4); Eosinophils % 3.3 % (0.1-12.0); Hematocrit 35.6 % (37.0-47.0); Hemoglobin 11.4 g/dL (12.2-16.2); Lymphocytes # 1.4 K/mm3 (0.7-4.5); Lymphocytes % 33.3 % (10-50); Mean Corpuscular Hemoglobin 32.7 pg (27.0-31.2); Mean Corpuscular Volume 101.9 fl (81-99); Mean Platelet Volume 8.1 fl (7.4-10.4); Monocytes # 0.3 K/mm3 (0.1-1.0); Monocytes % 6.7 % (1.7-9.3); Neutrophils # 2.4 K/mm3 (1.8-7.8); Neutrophils % 55.8 % (37.0-80.0); Platelet Count 166 K/mm3 (142-424); Red Blood Count 3.49 M/mm3 (4.20-5.40); Red Cell Distribution Width 15.4 % (11.5-17.5); White Blood Count 4.2 K/mm3 (4.8-10.8)
[2020-05-19 11:36] LABS: Hemoglobin A1C 5.3 % (4.0-6.0)
[2020-05-19 11:37] LABS: Activated Partial Thrombo Time 23.4 seconds (23.6-34.0); INR 0.96 (0.9-1.1); Prothrombin Time 10.7 seconds (9.4-11.8)
[2020-05-19 12:32] LABS: Chloride 108 mmol/L (98-107); Potassium 4.2 mmoL/L (3.5-5.1); Sodium 139 mmol/L (136-145)
[2020-05-19 12:34] LABS: Alanine Aminotransferase 21 U/L (12-78); Alkaline Phosphatase 50 U/L (38-126); Aspartate Amino Transferase 23 U/L (14-36); Bilirubin,Total 0.5 mg/dl (0.2-1.3); Blood Urea Nitrogen 17 mg/dl (7-17); Estimated Glomerular Filt Rate 54 ml/min (>60); GFR (African American) 65 ML/MIN (>60)
[2020-05-19 12:35] LABS: 25-OH Vitamin D, Total 62.6 ng/mL (30-100); Albumin Level 3.7 g/dl (3.5-5.0); Albumin/Globulin Ratio 1.3 (1.1-1.8); Anion Gap 10.2 mEq/L (5-15); Calcium 9.7 mg/dl (8.4-10.2); Carbon Dioxide 25 mmol/L (22.0-30.0); Cholesterol 188 mg/dl (140-200); Globulin 2.8 g/dL (1.3-3.2); Glucose 84 mg/dl (74-100); HDL Cholesterol 93 mg/dl (40-60); Total Protein,Serum 6.5 g/dl (6.3-8.2); Triglycerides 146 mg/dl (30-150); VLDL Cholesterol 29 mg/dL (0-40)
[2020-05-19 12:51] LABS: Free T4 (Free Thyroxine) 1.22 ng/dl (0.78-2.19)
[2020-05-19 13:05] LABS: Thyroid Stimulating Hormone 1.81 uIU/mL (0.465-4.68)
[2020-05-19 15:25] LABS: Microalbumin < 6.000 mg/L (0-16.7)
== END ==
PROVIDERS: Visit Provider Physician Assistant
DX: D64.9 Anemia, unspecified (principal); E03.9 Hypothyroidism, unspecified; E55.9 Vitamin D deficiency, unspecified; E78.5 Hyperlipidemia, unspecified; R53.83 Other fatigue; Z01.818 Encounter for other preprocedural examination; I35.1 Nonrheumatic aortic (valve) insufficiency; Z51.81 Encounter for therapeutic drug level monitoring; Z79.899 Other long term (current) drug therapy
CPT/HCPCS: 36415; 80053; 80061; 82043; 82306; 83036; 84439; 84443; 85025; 85610; 85730

== ENCOUNTER → 2020-05-24 14:15 | Outpatient (CLI) | payer MEDICARE, OTHER, SELFPAY ==
--- NOTE | 2020-05-24 14:21 | XR_ITS ---
PROCEDURE: XR CHEST 2V CLINICAL HISTORY: pre op right hip pain Hypertension COMPARISON: CR CXR CHEST(2 VIEWS-NOT PORTABLE) from 09/14/2016 CR XR CHEST 2V from 05/22/2019 CR XR CHEST 2V from 11/03/2019 FINDINGS: The cardiomediastinal silhouette and pulmonary vascularity are within normal limits. The lungs are clear without infiltrates, suspicious nodules, or pleural effusions. No acute bony abnormalities. IMPRESSION: No acute findings. Dictated by: Isrrael Suggs MD 05/24/2020 14:58 Isrrael Suggs MD in [place] 05/24/2020 14:58
== END ==
PROVIDERS: PCP Physician Assistant; Visit Provider Physician Assistant
DX: M25.551 Pain in right hip (principal); Z01.818 Encounter for other preprocedural examination
CPT/HCPCS: 71046

== ENCOUNTER → 2020-05-28 10:52 | Outpatient (CLI) | payer MEDICARE, OTHER, SELFPAY ==
[2020-05-29 19:39] LABS: Prealbumin 32 mg/dL (9-32)
== END ==
PROVIDERS: Visit Provider Physician Assistant
DX: Z01.818 Encounter for other preprocedural examination (principal); M17.12 Unilateral primary osteoarthritis, left knee
CPT/HCPCS: 36415; 84134

== ENCOUNTER 2020-08-28 09:51 | Emergency (ER) | payer MEDICARE, OTHER, SELFPAY ==
[2020-08-28 10:20] VITALS: BP 123/69; PULSE 81; RESP 17; TEMP 37; O2SAT 98; BMI 25.0
--- NOTE | 2020-08-28 10:38 | HMH.EDUTC ---
[facility] [place] Clinical Impression: Tick bite Qualifiers: Encounter type: initial encounter Qualified Code(s): W57.XXXA - Bitten or stung by nonvenomous insect and other nonvenomous arthropods, initial encounter Disposition: Home, Self-Care Condition on Discharge: Good Instructions: How to Remove a Tick, Protect Yourself from Tickborne Illnesses Additional Instructions: antibiotics as ordered Prescriptions: Doxycycline Hyclate [Doxycycline 100mg Capsule] 100 mg PO BID 10 Days #20 cap Transmission Status: Pending to [facility] #[id number] Referrals: Jeffrey Schuster MD [Primary Care Provider] - Time of Disposition: 10:46 Medical Decision Making - Paulie Inquiry Pt receiving controlled substance: No Vital Signs: 08/28/20 10:20 Temperature 98.6 F Temperature Source Oral Pulse Rate [Right Brachial] 81 Respiratory Rate 17 Blood Pressure [Right Arm] 123/69 Blood Pressure Mean [Right Arm] 87 Blood Pressure Source [Right Arm] Automatic Cuff Blood Pressure Position [Right Arm] Sitting 02 Sat by Pulse Oximetry 98 Oxygen Delivery Method Room Air Orders (Tests/Meds): ORDERS Category Date Time Status Lyme, IgM, Early Test/Reflex Stat Lab 08/28/20 10:37 Ordered Lyme, Total Ab Test/Reflex Stat Lab 08/28/20 10:37 Ordered [facility] [place] HPI - General Chief complaint: [facility] Stated complaint: bit by tick 08/18, aches, jefferson, fatigue Time Seen by Provider: 08/28/20 10:42 Mode of Arrival: Ambulatory Source of Information: Patient Limitations: No Limitations Description of Symptoms (Recalled from Triage Doc. by RN): PATIENT STATES SHE HAD A TICK BITE ON BACK OF NECK 10 DAYS AGO. WANTS CHECKED FOR LYME DISEASE HEENT Symptoms (Recalled from RN notes): No Resp Symptoms (Recalled from RN notes): No Skin Symptoms (Recalled from RN notes): Yes MS Symptoms (Recalled from RN notes): No Functional Status (Recalled from RN notes): WNL - History of Present Illness Provider Complaint: 75 yr old female presents for tiredness, and achy joints. pt states she removed a tick on 08/18 and her has had lyme dz and she feels she has some of the same symptoms. pt states she would like to be checked. - Related Data Home Medications Medication Instructions Recorded Confirmed antiarthritic combination no.2 900 mg PO DAILY tab 07/24/17 05/24/20 mg tablet aspirin 81 mg tablet,delayed 81 mg PO DAILY tab 07/24/17 05/24/20 release calcium carbonate 500 mg calcium 500 mg PO DAILY cap 07/24/17 05/24/20 (1,250 mg) capsule nitroglycerin 0.4 mg sublingual 0.4 mg SUBLINGUAL Q5M PRN 07/24/17 05/24/20 tablet magnesium chloride 64 mg 500 mg PO DAILY tab 10/27/19 05/24/20 tablet,extended release Previous Rx's Medication Instructions Recorded atorvastatin 40 mg tablet 40 mg PO DAILY #30 tab 10/27/19 ergocalciferol (vitamin D2) 1,250 50,000 unit PO QWEEK #14 cap 03/08/20 mcg (50,000 unit) capsule Synthroid 137 mcg tablet See Rx Instructions .ROUTE 06/15/20 .COMPLEX #90 tab NS omeprazole 20 mg capsule,delayed 20 mg PO BID #180 cap 07/08/20 release lisinopril 5 mg tablet See Rx Instructions .ROUTE 07/23/20 .COMPLEX #180 tab bisoprolol fumarate 10 mg tablet See Rx Instructions .ROUTE 07/28/20 .COMPLEX #90 tab Doxycycline Hyclate [Doxycycline 100 mg PO BID 10 Days #20 cap 08/28/20 100mg Capsule] Allergies Allergy/AdvReac Type Severity Reaction Status Date / Time morphine [MORPHINE] Allergy Unknown Verified 05/24/20 13:25 - Worker's Comp Is this a Worker's Comp case?: No [facility] History - Hepatitis A Screen Drug use history?: No High risk sexual behaviors?: No History of sexually transmitted infection?: No Currently employed?: No Childcare worker?: No Do you have indoor plumbing?: Yes Do you have electricity?: Yes Attestation statement:: This patient has been screened for Hepatitis A risk factors. I have reviewed the patient's past medical history: Yes Medi
[2020-08-28 10:55] VITALS: BP 123/69; PULSE 81; RESP 17; TEMP 37; O2SAT 98
[2020-08-31 12:36] LABS: RMSF, IgG, EIA Negative (Negative)
[2020-09-01 23:02] LABS: IgG P18 Ab. Absent (.); IgG P23 Ab. Absent (.); IgG P28 Ab. Absent (.); IgG P30 Ab. Absent (.); IgG P39 Ab. Absent (.); IgG P41 Ab. Present (.); IgG P45 Ab. Absent (.); IgG P58 Ab. Absent (.); IgG P66 Ab. Absent (.); IgG P93 Ab. Absent (.); IgM P23 Ab. Absent (.); IgM P39 Ab. Absent (.); IgM P41 Ab. Absent (.)
[2020-09-02 15:13] LABS: Lyme IgG WB Interp. Negative (.); Lyme IgM WB Interp. Negative (.)
== END 2020-08-28 11:00 | disposition home or self-care (01) ==
PROVIDERS: Emergency Provider Nurse Practitioner Family; PCP Emergency Medicine
DX: S10.96XA Insect bite of unspecified part of neck, initial encounter (principal); W57.XXXA Bitten or stung by nonvenomous insect and other nonvenomous arthropods, initial encounter; I25.10 Atherosclerotic heart disease of native coronary artery without angina pectoris; K21.9 Gastro-esophageal reflux disease without esophagitis; I10 Essential (primary) hypertension; I25.2 Old myocardial infarction; E03.9 Hypothyroidism, unspecified; Z96.642 Presence of left artificial hip joint; Z88.5 Allergy status to narcotic agent; Z79.899 Other long term (current) drug therapy
CPT/HCPCS: G0463; 86609; 86617; 86618; 99202

== ENCOUNTER → 2020-12-01 10:44 | Outpatient (CLI) | payer MEDICARE, OTHER, SELFPAY ==
--- NOTE | 2020-12-01 10:44 | MM_ITS ---
PROCEDURE INFORMATION: Exam: MG Screening 3D Mammography Exam date and time: 12/01/2020 10:44 AM Age: 75 years old Clinical indication: Encounter for screening mammogram for malignant neoplasm of breast TECHNIQUE: Imaging protocol: Screening tomosynthesis and 2D mammography including computer-aided detection (CAD) when performed. COMPARISON: 1. MG MM DIG SCREENING MAMM BI W/CAD 11/24/2019 10:20 AM 2. MG DIG MAMM-SCREEN JOSE ALBERTO 11/19/2018 10:51 AM FINDINGS: MAMMOGRAPHY: Breast composition: The breast tissue is heterogeneously dense, which may obscure small masses. Mass: None. Architectural distortion: None. Calcifications: No suspicious calcifications. Asymmetric density: None. Skin thickening: None. Axillary adenopathy: None. IMPRESSION: No mammographic evidence of malignancy. Annual screening is recommended unless otherwise clinically indicated. ASSESSMENT: BI-RADS Category 1: Negative
== END ==
PROVIDERS: PCP Emergency Medicine; Visit Provider Emergency Medicine
DX: Z12.31 Encounter for screening mammogram for malignant neoplasm of breast (principal)
CPT/HCPCS: 77063; 77067

== ENCOUNTER → 2020-12-20 08:55 | Outpatient (CLI) | payer MEDICARE, OTHER, SELFPAY ==
[2020-12-20 09:32] LABS: Eosinophils # 0.2 K/mm3 (0.0-0.4); Eosinophils % 3.9 % (0.1-12.0); Hematocrit 35.5 % (37.0-47.0); Hemoglobin 11.5 g/dL (12.2-16.2); Lymphocytes # 1.4 K/mm3 (0.7-4.5); Lymphocytes % 35.6 % (10-50); Mean Corpuscular HGB Conc 32.3 g/dL (31.8-35.4); Mean Corpuscular Hemoglobin 31.2 pg (27.0-31.2); Mean Corpuscular Volume 96.7 fl (81-99); Mean Platelet Volume 8.1 fl (7.4-10.4); Monocytes # 0.3 K/mm3 (0.1-1.0); Monocytes % 7.2 % (1.7-9.3); Neutrophils % 52.3 % (37.0-80.0); Platelet Count 161 K/mm3 (142-424); Red Blood Count 3.67 M/mm3 (4.20-5.40); Red Cell Distribution Width 14.7 % (11.5-17.5); White Blood Count 3.9 K/mm3 (4.8-10.8)
[2020-12-20 10:27] LABS: Alanine Aminotransferase 21 U/L (12-78); Albumin/Globulin Ratio 1.5 (1.1-1.8); Alkaline Phosphatase 65 U/L (38-126); Anion Gap 13.7 mEq/L (5-15); Aspartate Amino Transferase 26 U/L (14-36); Bilirubin,Total 0.5 mg/dl (0.2-1.3); Blood Urea Nitrogen 16 mg/dl (7-17); Calcium 9.1 mg/dl (8.4-10.2); Carbon Dioxide 24 mmol/L (22.0-30.0); Chloride 107 mmol/L (98-107); Chol/HDL Ratio 2.2 (1-3.5); Cholesterol 185 mg/dl (140-200); Estimated Glomerular Filt Rate 61 ml/min (>60); GFR (African American) 73 ML/MIN (>60); Globulin 2.6 g/dL (1.3-3.2); Glucose 84 mg/dl (74-100); HDL Cholesterol 86 mg/dl (40-60); Potassium 4.7 mmoL/L (3.5-5.1); Sodium 140 mmol/L (136-145); Total Protein,Serum 6.6 g/dl (6.3-8.2); Triglycerides 131 mg/dl (30-150); VLDL Cholesterol 26 mg/dL (0-40)
[2020-12-20 10:38] LABS: Direct LDL Cholesterol 66.78 mg/dL (100-129)
[2020-12-20 10:44] LABS: 25-OH Vitamin D, Total 50.1 ng/mL (30-100)
[2020-12-20 10:45] LABS: Free T4 (Free Thyroxine) 1.18 ng/dl (0.78-2.19)
[2020-12-20 10:58] LABS: Thyroid Stimulating Hormone 5.26 uIU/mL (0.465-4.68)
[2020-12-20 11:10] LABS: Iron 88 ug/dL (37-170)
[2020-12-20 11:20] LABS: Total Iron Binding Capacity 257 ug/dL (265-497)
[2020-12-20 11:47] LABS: Ferritin 123 ng/ml (11.1-264)
[2020-12-22 10:43] LABS: Peripheral Smear Review Scanned Result
== END ==
PROVIDERS: Physician Assistant; Visit Provider Emergency Medicine
DX: D64.9 Anemia, unspecified (principal); E03.9 Hypothyroidism, unspecified; E55.9 Vitamin D deficiency, unspecified; E78.5 Hyperlipidemia, unspecified; R53.83 Other fatigue; W57.XXXA Bitten or stung by nonvenomous insect and other nonvenomous arthropods, initial encounter
CPT/HCPCS: 36415; 80053; 80061; 82306; 82728; 83540; 83550; 84439; 84443; 85025

== ENCOUNTER → 2021-01-20 13:46 | Outpatient (CLI) | payer MEDICARE, OTHER, SELFPAY ==
[2021-01-20 15:14] LABS: Iron 96 ug/dL (37-170)
[2021-01-20 15:24] LABS: Total Iron Binding Capacity 283 ug/dL (265-497)
[2021-01-20 15:44] LABS: 25-OH Vitamin D, Total 68.9 ng/mL (30-100)
[2021-01-20 15:51] LABS: Ferritin 131 ng/ml (11.1-264)
[2021-01-20 17:20] LABS: Vitamin B12 587 pg/mL (239-931)
[2021-01-20 17:31] LABS: Folate > 20.00 ng/mL
[2021-01-24 16:59] LABS: Albumin 4.1 g/dL (2.9-4.4); Alpha-1-Globulin 0.2 g/dL (0.0-0.4); Alpha-2-Globulin 0.7 g/dL (0.4-1.0); Immunoglobulin A, Qn 177 mg/dL (64-422); Immunoglobulin G, Qn 971 mg/dL (586-1602); Immunoglobulin M, Qn 100 mg/dL (26-217); Protein, Total 6.9 g/dL (6.0-8.5)
[2021-02-05 16:21] LABS: Free Kappa Lt Chains 24.6
[2021-02-05 16:22] LABS: Free Lambda Lt Chains 17.2
== END ==
PROVIDERS: Visit Provider Internal Medicine Medical Oncology
DX: D64.9 Anemia, unspecified (principal); D72.819 Decreased white blood cell count, unspecified
CPT/HCPCS: 36415; 82306; 82607; 82728; 82746; 82784; 83540; 83550; 83883; 84155; 84165; 86334; 88189

== ENCOUNTER → 2021-06-23 16:00 | Outpatient (CLI) | payer MEDICARE, OTHER, SELFPAY ==
[2021-06-23 20:15] LABS: Basophils # 0.1 K/mm3 (0-0.2); Basophils % 1.1 % (0.1-2.0); Eosinophils # 0.1 K/mm3 (0.0-0.4); Eosinophils % 2.4 % (0.1-12.0); Hematocrit 36.9 % (37.0-47.0); Hemoglobin 11.9 g/dL (12.2-16.2); Lymphocytes # 1.3 K/mm3 (0.7-4.5); Lymphocytes % 31.2 % (10-50); Mean Corpuscular HGB Conc 32.1 g/dL (31.8-35.4); Mean Corpuscular Hemoglobin 32.3 pg (27.0-31.2); Mean Corpuscular Volume 100.7 fl (81-99); Mean Platelet Volume 9.5 fl (7.4-10.4); Monocytes # 0.4 K/mm3 (0.1-1.0); Monocytes % 8.8 % (1.7-9.3); Neutrophils # 2.4 K/mm3 (1.8-7.8); Neutrophils % 56.6 % (37.0-80.0); Platelet Count 187 K/mm3 (142-424); Red Blood Count 3.66 M/mm3 (4.20-5.40); Red Cell Distribution Width 14.1 % (11.5-17.5); White Blood Count 4.2 K/mm3 (4.8-10.8)
[2021-06-23 21:24] LABS: Alanine Aminotransferase 29 U/L (12-78); Albumin/Globulin Ratio 1.6 (1.1-1.8); Alkaline Phosphatase 64 U/L (38-126); Anion Gap 12.4 mEq/L (5-15); Aspartate Amino Transferase 31 U/L (14-36); Bilirubin,Total 0.5 mg/dl (0.2-1.3); Blood Urea Nitrogen 15 mg/dl (7-17); Calcium 9.2 mg/dl (8.4-10.2); Carbon Dioxide 27 mmol/L (22.0-30.0); Chloride 106 mmol/L (98-107); Chol/HDL Ratio 2.3 (1-3.5); Cholesterol 176 mg/dl (140-200); Estimated Glomerular Filt Rate 81 ml/min (>60); GFR (African American) 98 ML/MIN (>60); Globulin 2.5 g/dL (1.3-3.2); Glucose 117 mg/dl (74-100); HDL Cholesterol 76 mg/dl (40-60); Iron 77 ug/dL (37-170); Potassium 4.4 mmoL/L (3.5-5.1); Sodium 141 mmol/L (136-145); Total Protein,Serum 6.5 g/dl (6.3-8.2); Triglycerides 115 mg/dl (30-150); VLDL Cholesterol 23 mg/dL (0-40)
[2021-06-23 21:35] LABS: Direct LDL Cholesterol 77.32 mg/dL (100-129)
[2021-06-23 21:46] LABS: 25-OH Vitamin D, Total 40.6 ng/mL (30-100)
[2021-06-23 21:55] LABS: Thyroid Stimulating Hormone < 0.02 uIU/mL (0.465-4.68)
[2021-06-23 22:09] LABS: Total Iron Binding Capacity 278 ug/dL (265-497)
[2021-06-23 22:14] LABS: Vitamin B12 525 pg/mL (239-931)
[2021-06-23 22:25] LABS: Ferritin 119 ng/ml (11.1-264)
[2021-06-24 17:25] LABS: Hemoglobin A1C 5.5 % (4.0-6.0)
[2021-06-26 13:16] LABS: Peripheral Smear Review Scanned Result
== END ==
PROVIDERS: Visit Provider Physician Assistant
DX: W57.XXXA Bitten or stung by nonvenomous insect and other nonvenomous arthropods, initial encounter (principal); Z00.00 Encounter for general adult medical examination without abnormal findings; E03.9 Hypothyroidism, unspecified; R53.83 Other fatigue; E55.9 Vitamin D deficiency, unspecified; D64.9 Anemia, unspecified; Z79.899 Other long term (current) drug therapy
CPT/HCPCS: 80053; 80061; 82306; 82607; 82728; 83036; 83540; 83550; 84443; 85025

== ENCOUNTER → 2021-06-29 07:40 | Outpatient (CLI) | payer MEDICARE, OTHER, SELFPAY ==
--- NOTE | 2021-06-29 07:47 | US_ITS ---
FINAL REPORT CLINICAL HISTORY: .HTN,CAD,DECREASED PULSES FINDINGS: ANKLE-BRACHIAL PRESSURE INDICES Pressure indices are as follows: RIGHT LOWER EXTREMITY: Ankle-brachial pressure index: 1.09 Comments: Normal LEFT LOWER EXTREMITY: Ankle-brachial pressure index: 1.04 Comments: Normal CONCLUSION: No evidence of significant obstructive peripheral vascular disease of the lower extremities Reviewed, Interpreted and Dictated by Earle Salazar III, MD Transcribed by Sol Treadwell Authenticated by Earle Salazar III, MD on 06/29/2021 09:18:18 AM [facility]
== END ==
PROVIDERS: PCP Physician Assistant; Visit Provider Physician Assistant
DX: R09.89 Other specified symptoms and signs involving the circulatory and respiratory systems (principal)
CPT/HCPCS: 93923

== ENCOUNTER → 2021-07-20 08:15 | Outpatient (CLI) | payer MEDICARE, OTHER, SELFPAY ==
[2021-07-20 08:55] LABS: Basophils # 0.1 K/mm3 (0-0.2); Basophils % 1.3 % (0.1-2.0); Eosinophils # 0.2 K/mm3 (0.0-0.4); Hematocrit 36.5 % (37.0-47.0); Hemoglobin 11.4 g/dL (12.2-16.2); Lymphocytes # 1.4 K/mm3 (0.7-4.5); Lymphocytes % 38.3 % (10-50); Mean Corpuscular HGB Conc 31.3 g/dL (31.8-35.4); Mean Corpuscular Hemoglobin 31.3 pg (27.0-31.2); Mean Corpuscular Volume 99.9 fl (81-99); Mean Platelet Volume 8.8 fl (7.4-10.4); Monocytes # 0.2 K/mm3 (0.1-1.0); Monocytes % 6.9 % (1.7-9.3); Neutrophils # 1.7 K/mm3 (1.8-7.8); Neutrophils % 48.6 % (37.0-80.0); Platelet Count 175 K/mm3 (142-424); Red Blood Count 3.65 M/mm3 (4.20-5.40); Red Cell Distribution Width 14.1 % (11.5-17.5); White Blood Count 3.5 K/mm3 (4.8-10.8)
[2021-07-20 09:44] LABS: 25-OH Vitamin D, Total 47.2 ng/mL (30-100)
[2021-07-20 09:57] LABS: Iron 107 ug/dL (37-170)
[2021-07-20 10:06] LABS: Total Iron Binding Capacity 262 ug/dL (265-497)
[2021-07-20 10:33] LABS: Ferritin 117 ng/ml (11.1-264)
== END ==
PROVIDERS: Visit Provider Internal Medicine Medical Oncology
DX: D64.9 Anemia, unspecified (principal); E55.9 Vitamin D deficiency, unspecified
CPT/HCPCS: 36415; 82306; 82728; 83540; 83550; 85025

== ENCOUNTER → 2021-08-04 09:36 | Outpatient (CLI) | payer MEDICARE, OTHER, SELFPAY ==
--- NOTE | 2021-08-04 09:42 | XR_ITS ---
FINAL REPORT CLINICAL HISTORY: Foot pain. no trauma FINDINGS: Three views of the left foot were obtained. There is no acute fracture or dislocation. There is a moderate hallux valgus deformity. There is lateral subluxation of the 1st proximal phalanx relative to the distal 1st metatarsal. IMPRESSION: Moderate degenerative change with hallux valgus deformity. Reviewed, Interpreted and Dictated by Anthony Rodriguez MD Transcribed by Tim Abdalla Authenticated by Anthony Rodriguez MD on 08/04/2021 11:22:56 AM [facility]
--- NOTE | 2021-08-04 09:42 | XR_ITS ---
FINAL REPORT CLINICAL HISTORY: foot pain, no trauma, pain on bottom of her feet. FINDINGS: Three views of the right foot were obtained. There is no acute fracture or dislocation. There is a moderate hallux valgus deformity. There is lateral subluxation of the 1st proximal phalanx relative to the distal 1st metatarsal. IMPRESSION: Moderate degenerative change with hallux valgus deformity. Reviewed, Interpreted and Dictated by Anthony Rodriguez MD Transcribed by Tim Abdalla Authenticated by Anthony Rodriguez MD on 08/04/2021 11:23:02 AM [facility]
== END ==
PROVIDERS: PCP Physician Assistant; Visit Provider Podiatrist
DX: R53.83 Other fatigue; M79.672 Pain in left foot; M79.671 Pain in right foot
CPT/HCPCS: 36415; 73630; 84443

== ENCOUNTER → 2021-09-15 09:43 | Outpatient (CLI) | payer MEDICARE, OTHER, SELFPAY ==
[2021-09-15 11:22] LABS: Thyroid Stimulating Hormone 0.06 uIU/mL (0.465-4.68)
== END ==
PROVIDERS: PCP Physician Assistant; Visit Provider Physician Assistant
DX: E03.9 Hypothyroidism, unspecified (principal)
CPT/HCPCS: 36415; 84443

== ENCOUNTER → 2021-10-04 12:44 | Outpatient (CLI) | payer MEDICARE, OTHER, SELFPAY ==
--- NOTE | 2021-10-04 12:57 | US_ITS ---
FINAL REPORT TECHNIQUE: Sonographic images of the thyroid gland were obtained in the longitudinal and transverse planes. CLINICAL HISTORY: Hypothyroidism FINDINGS: The right lobe measures 3.2 x 1.2 x 0.8 cm and is mildly heterogeneous. The left lobe measures 1.5 x 0.9 x 0.6 cm and is mildly heterogeneous. The isthmus measures 3 mm which is normal. There is a 6 mm isoechoic nodule with calcifications in the right lobe. The surrounding soft tissues are normal. Color imaging of the gland is within normal limits. IMPRESSION: 1. Small heterogeneous thyroid. 2. Isoechoic 6 mm right thyroid nodule with calcifications, TI-RADS category 4. Based on small size, there are no current recommendation regarding follow-up. Reviewed, Interpreted and Dictated by Maura Torres MD Transcribed by Sol Treadwell Authenticated by Maura Torres MD on 10/04/2021 03:15:19 PM [facility]
[2021-10-04 14:50] LABS: T4 (Thyroxine) 8.5 ug/dl (5.53-11.0)
[2021-10-04 15:04] LABS: Thyroid Stimulating Hormone 0.18 uIU/mL (0.465-4.68)
[2021-10-06 08:22] LABS: Thyroid Peroxidase Antibodies <8 IU/mL (0-34); Triiodothyronine (T3) Total 89 ng/dL (71-180)
[2021-10-07 07:14] LABS: Thyroid Stimulating Immunoglob <0.10 IU/L (0.00-0.55)
== END ==
PROVIDERS: PCP Physician Assistant; Visit Provider Physician Assistant
DX: E03.9 Hypothyroidism, unspecified (principal); R53.83 Other fatigue
CPT/HCPCS: 36415; 76536; 84436; 84443; 84445; 84480; 86376

== ENCOUNTER → 2021-10-20 07:16 | Outpatient (CLI) | payer MEDICARE, OTHER, SELFPAY | PROVIDERS: PCP Physician Assistant; Visit Provider Physician Assistant | DX: N39.0 Urinary tract infection, site not specified (principal); R53.83 Other fatigue; B96.20 Unspecified Escherichia coli [E. coli] as the cause of diseases classified elsewhere | CPT/HCPCS: 87086; 87088; 87186 ==

== ENCOUNTER → 2021-12-21 10:39 | Outpatient (CLI) | payer MEDICARE, OTHER, SELFPAY ==
--- NOTE | 2021-12-21 10:39 | MM_ITS ---
PROCEDURE INFORMATION: Exam: MG Bilateral Screening 3D Mammography Exam date and time: 12/21/2021 10:34 AM Age: 76 years old Clinical indication: Screening examination TECHNIQUE: Imaging protocol: Bilateral Screening tomosynthesis and 2D mammography including computer-aided detection (CAD) when performed. COMPARISON: 1. MG MM DIG SCREENING MAMM BI W/CAD 12/01/2020 11:01 AM 2. MG MM DIG SCREENING MAMM BI W/CAD 11/24/2019 10:20 AM FINDINGS: MAMMOGRAPHY: Breast composition: The breasts are heterogeneously dense, which may obscure small masses. Mass: None. Architectural distortion: None. Calcifications: No suspicious calcifications. Asymmetric density: None. Skin thickening: None. Axillary adenopathy: None. IMPRESSION: No mammographic evidence of malignancy. Annual screening is recommended unless otherwise clinically indicated. ASSESSMENT: BI-RADS Category 1: Negative
== END ==
PROVIDERS: PCP Physician Assistant; Visit Provider Physician Assistant
DX: Z12.31 Encounter for screening mammogram for malignant neoplasm of breast (principal)
CPT/HCPCS: 77063; 77067

== ENCOUNTER → 2022-01-17 09:33 | Outpatient (CLI) | payer MEDICARE, OTHER, SELFPAY ==
[2022-01-17 10:05] LABS: Basophils # 0.1 K/mm3 (0-0.2); Basophils % 1.1 % (0.1-2.0); Eosinophils # 0.3 K/mm3 (0.0-0.4); Eosinophils % 6.1 % (0.1-12.0); Hematocrit 38.3 % (37.0-47.0); Lymphocytes # 1.3 K/mm3 (0.7-4.5); Lymphocytes % 28.4 % (10-50); Mean Corpuscular HGB Conc 31.4 g/dL (31.8-35.4); Mean Corpuscular Hemoglobin 32.5 pg (27.0-31.2); Mean Corpuscular Volume 103.4 fl (81-99); Mean Platelet Volume 8.7 fl (7.4-10.4); Monocytes # 0.3 K/mm3 (0.1-1.0); Monocytes % 6.6 % (1.7-9.3); Neutrophils # 2.7 K/mm3 (1.8-7.8); Neutrophils % 57.8 % (37.0-80.0); Platelet Count 204 K/mm3 (142-424); Red Blood Count 3.71 M/mm3 (4.20-5.40); Red Cell Distribution Width 14.7 % (11.5-17.5); White Blood Count 4.6 K/mm3 (4.8-10.8)
[2022-01-17 10:57] LABS: Alanine Aminotransferase 22 U/L (12-78); Albumin Level 3.9 g/dl (3.5-5.0); Albumin/Globulin Ratio 1.3 (1.1-1.8); Alkaline Phosphatase 84 U/L (38-126); Anion Gap 11.3 mEq/L (5-15); Aspartate Amino Transferase 28 U/L (14-36); Bilirubin,Total 0.4 mg/dl (0.2-1.3); Blood Urea Nitrogen 15 mg/dl (7-17); Calcium 9.3 mg/dl (8.4-10.2); Carbon Dioxide 24 mmol/L (22.0-30.0); Chloride 110 mmol/L (98-107); Estimated Glomerular Filt Rate 69 ml/min (>60); GFR (African American) 84 ML/MIN (>60); Globulin 2.9 g/dL (1.3-3.2); Glucose 119 mg/dl (74-100); Iron 102 ug/dL (37-170); Potassium 4.3 mmoL/L (3.5-5.1); Sodium 141 mmol/L (136-145); Total Protein,Serum 6.8 g/dl (6.3-8.2)
[2022-01-17 11:06] LABS: Total Iron Binding Capacity 264 ug/dL (265-497)
[2022-01-17 11:32] LABS: Ferritin 160 ng/ml (11.1-264)
== END ==
PROVIDERS: PCP Emergency Medicine; Visit Provider Internal Medicine Medical Oncology
DX: D50.9 Iron deficiency anemia, unspecified (principal)
CPT/HCPCS: 36415; 80053; 82728; 83540; 83550; 85025

== ENCOUNTER → 2022-03-10 09:26 | Outpatient (CLI) | payer MEDICARE, OTHER, SELFPAY ==
[2022-03-10 11:24] LABS: Thyroid Stimulating Hormone 0.41 uIU/mL (0.465-4.68)
== END ==
PROVIDERS: PCP Physician Assistant; Visit Provider Physician Assistant
DX: D50.8 Other iron deficiency anemias (principal); L60.3 Nail dystrophy
CPT/HCPCS: 36415; 84443

== ENCOUNTER → 2022-03-23 11:43 | Outpatient (CLI) | payer MEDICARE, OTHER, SELFPAY ==
[2022-03-23 15:13] LABS: Basophils # 0.1 K/mm3 (0-0.2); Basophils % 1.4 % (0.1-2.0); Eosinophils # 0.1 K/mm3 (0.0-0.4); Eosinophils % 3.4 % (0.1-12.0); Hematocrit 37.5 % (37.0-47.0); Hemoglobin 11.8 g/dL (12.2-16.2); Lymphocytes # 1.2 K/mm3 (0.7-4.5); Lymphocytes % 33.3 % (10-50); Mean Corpuscular HGB Conc 31.3 g/dL (31.8-35.4); Mean Corpuscular Hemoglobin 32.4 pg (27.0-31.2); Mean Corpuscular Volume 103.3 fl (81-99); Mean Platelet Volume 8.8 fl (7.4-10.4); Monocytes # 0.3 K/mm3 (0.1-1.0); Monocytes % 8.7 % (1.7-9.3); Neutrophils % 53.3 % (37.0-80.0); Platelet Count 179 K/mm3 (142-424); Red Blood Count 3.63 M/mm3 (4.20-5.40); Red Cell Distribution Width 14.6 % (11.5-17.5); White Blood Count 3.7 K/mm3 (4.8-10.8)
[2022-03-23 18:50] LABS: Alanine Aminotransferase 22 U/L (12-78); Albumin Level 3.9 g/dl (3.5-5.0); Albumin/Globulin Ratio 1.5 (1.1-1.8); Alkaline Phosphatase 93 U/L (38-126); Anion Gap 12.3 mEq/L (5-15); Aspartate Amino Transferase 26 U/L (14-36); Bilirubin,Total 0.4 mg/dl (0.2-1.3); Blood Urea Nitrogen 17 mg/dl (7-17); Calcium 9.3 mg/dl (8.4-10.2); Carbon Dioxide 23 mmol/L (22.0-30.0); Chloride 105 mmol/L (98-107); Chol/HDL Ratio 2.4 (1-3.5); Cholesterol 189 mg/dl (140-200); Estimated Glomerular Filt Rate 69 ml/min (>60); GFR (African American) 84 ML/MIN (>60); Globulin 2.6 g/dL (1.3-3.2); Glucose 96 mg/dl (74-100); HDL Cholesterol 79 mg/dl (40-60); Potassium 4.3 mmoL/L (3.5-5.1); Sodium 136 mmol/L (136-145); Total Protein,Serum 6.5 g/dl (6.3-8.2); Triglycerides 120 mg/dl (30-150); VLDL Cholesterol 24 mg/dL (0-40)
[2022-03-23 19:08] LABS: 25-OH Vitamin D, Total 40.7 ng/mL (30-100)
[2022-03-23 19:22] LABS: Thyroid Stimulating Hormone 0.24 uIU/mL (0.465-4.68)
[2022-03-23 19:41] LABS: Vitamin B12 272 pg/mL (239-931)
== END ==
PROVIDERS: PCP Physician Assistant; Visit Provider Physician Assistant
DX: R23.2 Flushing (principal); L29.9 Pruritus, unspecified; E78.2 Mixed hyperlipidemia; E55.9 Vitamin D deficiency, unspecified
CPT/HCPCS: 80053; 80061; 82306; 82607; 84443; 85025

== ENCOUNTER → 2022-04-26 09:41 | Outpatient (CLI) | payer MEDICARE, OTHER, SELFPAY | PROVIDERS: PCP Emergency Medicine; Visit Provider Physician Assistant | DX: R00.2 Palpitations (principal) | CPT/HCPCS: 93270 ==

== ENCOUNTER → 2022-04-28 10:11 | Outpatient (CLI) | payer MEDICARE, OTHER, SELFPAY ==
[2022-04-28 13:05] LABS: Thyroid Stimulating Hormone 0.31 uIU/mL (0.465-4.68)
== END ==
PROVIDERS: PCP Physician Assistant; Visit Provider Physician Assistant
DX: E03.9 Hypothyroidism, unspecified (principal)
CPT/HCPCS: 36415; 84443

== ENCOUNTER → 2022-05-12 10:25 | Outpatient (CLI) | payer MEDICARE, OTHER, SELFPAY ==
[2022-05-18 05:17] LABS: D001-IgE D pteronyssinus 5.12 kU/L (Class IV); D002-IgE D farinae 2.46 kU/L (Class III); E001-IgE Cat Dander <0.10 kU/L (Class 0); E005-IgE Dog Dander 0.14 kU/L (Class 0/I); E072-IgE Mouse Urine <0.10 kU/L (Class 0); G002-IgE Bermuda Grass 0.23 kU/L (Class 0/I); G006-IgE Timothy Grass 0.19 kU/L (Class 0/I); I006-IgE Cockroach, German 0.18 kU/L (Class 0/I); Immunoglobulin E, Total 540 IU/mL (6-495); M001-IgE Penicillium chrysogen 5.98 kU/L (Class IV); M002-IgE Cladosporium herbarum 0.22 kU/L (Class 0/I); M003-IgE Aspergillus fumigatus 0.15 kU/L (Class 0/I); M006-IgE Alternaria alternata 1.74 kU/L (Class III); T003-IgE Common Silver Birch 0.17 kU/L (Class 0/I); T006-IgE Cedar, Mountain 0.23 kU/L (Class 0/I); T007-IgE Oak, White 0.22 kU/L (Class 0/I); T008-IgE Elm, American 0.18 kU/L (Class 0/I); T010-IgE Walnut 0.31 kU/L (Class 0/I); T011-IgE Maple Leaf Sycamore 0.28 kU/L (Class 0/I); T015-IgE Ash, White 0.27 kU/L (Class 0/I); T022-IgE Pecan, Hickory 0.14 kU/L (Class 0/I); T070-IgE White Mulberry <0.10 kU/L (Class 0); W001-IgE Ragweed, Short 1.91 kU/L (Class III); W011-IgE Thistle, Russian 0.16 kU/L (Class 0/I); W018-IgE Sheep Sorrel 0.18 kU/L (Class 0/I)
== END ==
PROVIDERS: PCP Physician Assistant; Visit Provider Otolaryngology
DX: E03.9 Hypothyroidism, unspecified (principal); H93.13 Tinnitus, bilateral; L29.9 Pruritus, unspecified; J30.9 Allergic rhinitis, unspecified
CPT/HCPCS: 36415; 82785; 86003

== ENCOUNTER 2022-05-17 07:56 | Day surgery (SDC) | payer MEDICARE, OTHER, SELFPAY ==
[2022-05-17 08:00] VITALS: BMI 25.7
[2022-05-17 08:42] VITALS: BP 144/74; PULSE 60; RESP 20; TEMP 36.6; O2SAT 97
[2022-05-17 09:39] VITALS: BP 132/74; PULSE 80; RESP 20; O2SAT 99
--- NOTE | 2022-05-17 10:57 | EXP.LOOP ---
[facility] Loop Recorder Date: 05/17/22 Time: 09:30 Procedure Performed:: Implantation of loop recorder Indication:: Paroxysmal atrial fibrillation Technique:: Patient was brought to the cardiac Block Making Machine Operator. After informed consent obtained, 1% lidocaine with epinephrine was used to anesthetize the site along the left anterior aspect of the chest near the sternal border. Using the preformed scalpel, an incision was made and using the supplied preloaded apparatus, the loop recorder was placed subcutaneously without difficulty. Following the deployment of the loop recorder interrogation of the device was performed to ensure appropriate voltage was being detected. Once this was verified, Steri-Strips were placed over the incision and the patient was prepped to discharge home. Patient tolerated the procedure well with minimal discomfort. Impression:: Successful implantation of loop recorder Serial Number:: BrandBacker model M301 Lux-[id number] Serial #[id number] Plan:: Routine postop care
== END 2022-05-17 09:54 | disposition home or self-care (01) ==
LOC: CATHLAB 07:58
PROVIDERS: PCP Emergency Medicine; Visit Provider Internal Medicine
DX: R00.2 Palpitations (principal); I48.0 Paroxysmal atrial fibrillation; I35.1 Nonrheumatic aortic (valve) insufficiency; I25.10 Atherosclerotic heart disease of native coronary artery without angina pectoris; I11.9 Hypertensive heart disease without heart failure
CPT/HCPCS: 33285

== ENCOUNTER → 2022-05-24 09:16 | Outpatient (POV) | payer MEDICARE, OTHER, SELFPAY | PROVIDERS: Visit Provider Specialist/Technologist | DX: Z00.00 Encounter for general adult medical examination without abnormal findings (principal) ==

== ENCOUNTER → 2022-06-30 12:54 | Outpatient (CLI) | payer MEDICARE, OTHER, SELFPAY | PROVIDERS: PCP Emergency Medicine; Visit Provider Physician Assistant | DX: I48.0 Paroxysmal atrial fibrillation (principal); R00.2 Palpitations | CPT/HCPCS: 93270 ==

== ENCOUNTER → 2022-08-16 09:40 | Outpatient (CLI) | payer MEDICARE, OTHER, SELFPAY ==
[2022-08-16 10:20] LABS: Eosinophils # 0.2 K/mm3 (0.0-0.4); Eosinophils % 5.2 % (0.1-12.0); Hematocrit 38.9 % (37.0-47.0); Hemoglobin 12.2 g/dL (12.2-16.2); Lymphocytes # 1.5 K/mm3 (0.7-4.5); Lymphocytes % 37.1 % (10-50); Mean Corpuscular HGB Conc 31.4 g/dL (31.8-35.4); Mean Corpuscular Hemoglobin 31.9 pg (27.0-31.2); Mean Corpuscular Volume 101.4 fl (81-99); Mean Platelet Volume 8.8 fl (7.4-10.4); Monocytes # 0.3 K/mm3 (0.1-1.0); Monocytes % 8.4 % (1.7-9.3); Neutrophils # 1.9 K/mm3 (1.8-7.8); Neutrophils % 48.3 % (37.0-80.0); Platelet Count 152 K/mm3 (142-424); Red Blood Count 3.84 M/mm3 (4.20-5.40); Red Cell Distribution Width 14.1 % (11.5-17.5); White Blood Count 3.9 K/mm3 (4.8-10.8)
[2022-08-16 17:07] LABS: Thyroid Stimulating Hormone 3.11 uIU/mL (0.465-4.68)
[2022-08-17 10:43] LABS: Thyroid Stimulating Hormone 2.99 uIU/mL (0.465-4.68)
== END ==
PROVIDERS: Physician Assistant; PCP Emergency Medicine; Visit Provider Internal Medicine Medical Oncology
DX: E78.2 Mixed hyperlipidemia (principal); D50.9 Iron deficiency anemia, unspecified
CPT/HCPCS: 36415; 84443; 85025

== ENCOUNTER → 2022-10-17 13:41 | Outpatient (CLI) | payer MEDICARE, OTHER, SELFPAY ==
[2022-10-26 00:12] LABS: Lyme B. burgdorferi PCR Blood Negative (Negative)
== END ==
PROVIDERS: PCP Physician Assistant; Visit Provider Physician Assistant
DX: D50.9 Iron deficiency anemia, unspecified (principal); W57.XXXA Bitten or stung by nonvenomous insect and other nonvenomous arthropods, initial encounter
CPT/HCPCS: 87476

== ENCOUNTER → 2022-10-17 23:08 | Outpatient (CLI) | payer MEDICARE, OTHER, SELFPAY | PROVIDERS: PCP Physician Assistant; Visit Provider Physician Assistant | DX: Z11.9 Encounter for screening for infectious and parasitic diseases, unspecified (principal); W57.XXXA Bitten or stung by nonvenomous insect and other nonvenomous arthropods, initial encounter ==

== ENCOUNTER → 2022-12-26 09:39 | Outpatient (CLI) | payer MEDICARE, OTHER, SELFPAY ==
--- NOTE | 2022-12-26 09:40 | MM_ITS ---
PROCEDURE INFORMATION: Exam: MG Bilateral Screening 3D Mammography Exam date and time: 12/26/2022 9:31 AM Age: 77 years old Clinical indication: Screening mammogram TECHNIQUE: Imaging protocol: Bilateral Screening tomosynthesis and 2D mammography including computer-aided detection (CAD) when performed. COMPARISON: 1. MG MM DIG SCREENING MAMM BI W/CAD 12/21/2021 10:34 AM 2. MG MM DIG SCREENING MAMM BI W/CAD 12/01/2020 11:01 AM 3. MG MM DIG SCREENING MAMM BI W/CAD 11/24/2019 10:20 AM 4. MG DIG MAMM-SCREEN JOSE ALBERTO 11/19/2018 10:51 AM FINDINGS: MAMMOGRAPHY: Breast composition: There are scattered areas of fibroglandular density. Mass: None. Architectural distortion: No new or suspicious architectural distortion. Calcifications: No new or suspicious calcifications are present Asymmetric density: No new or suspicious asymmetric density is present Skin thickening: None. Axillary adenopathy: None. IMPRESSION: No mammographic evidence of malignancy. Recommend annual screening mammography unless otherwise clinically indicated. ASSESSMENT: BI-RADS category 1: Negative
== END ==
PROVIDERS: PCP Physician Assistant; Visit Provider Emergency Medicine
DX: Z12.31 Encounter for screening mammogram for malignant neoplasm of breast (principal)
CPT/HCPCS: 77063; 77067

== ENCOUNTER → 2023-03-22 23:00 | Outpatient (CLI) | payer MEDICARE, OTHER, SELFPAY ==
[2023-03-22 20:54] LABS: Basophils % 0.5 % (0.1-2.0); Eosinophils # 0.2 K/mm3 (0.0-0.4); Eosinophils % 3.6 % (0.1-12.0); Hematocrit 37.3 % (37.0-47.0); Hemoglobin 12.2 g/dL (12.2-16.2); Lymphocytes # 1.4 K/mm3 (0.7-4.5); Lymphocytes % 27.9 % (10-50); Mean Corpuscular HGB Conc 32.6 g/dL (31.8-35.4); Mean Corpuscular Hemoglobin 33.7 pg (27.0-31.2); Mean Corpuscular Volume 103.4 fl (81-99); Mean Platelet Volume 9.9 fl (7.4-10.4); Monocytes # 0.5 K/mm3 (0.1-1.0); Monocytes % 9.1 % (1.7-9.3); Neutrophils # 2.9 K/mm3 (1.8-7.8); Neutrophils % 58.8 % (37.0-80.0); Platelet Count 140 K/mm3 (142-424); Red Blood Count 3.61 M/mm3 (4.20-5.40); Red Cell Distribution Width 13.7 % (11.5-17.5); White Blood Count 4.9 K/mm3 (4.8-10.8)
[2023-03-22 21:29] LABS: Alanine Aminotransferase 23 U/L (12-78); Albumin Level 4.2 g/dl (3.5-5.0); Albumin/Globulin Ratio 1.4 (1.1-1.8); Alkaline Phosphatase 69 U/L (38-126); Anion Gap 14.4 mEq/L (5-15); Aspartate Amino Transferase 32 U/L (14-36); Bilirubin,Total 0.5 mg/dl (0.2-1.3); Blood Urea Nitrogen 19 mg/dl (7-17); Calcium 9.3 mg/dl (8.4-10.2); Carbon Dioxide 24 mmol/L (22.0-30.0); Chloride 105 mmol/L (98-107); Cholesterol 188 mg/dl (140-200); Estimated Glomerular Filt Rate 69 ml/min (>60); GFR (African American) 84 ML/MIN (>60); Glucose 71 mg/dl (74-100); HDL Cholesterol 95 mg/dl (40-60); Potassium 4.4 mmoL/L (3.5-5.1); Sodium 139 mmol/L (136-145); Total Protein,Serum 7.2 g/dl (6.3-8.2); Triglycerides 176 mg/dl (30-150); VLDL Cholesterol 35 mg/dL (0-40)
[2023-03-22 21:40] LABS: Direct LDL Cholesterol 80.11 mg/dL (100-129)
[2023-03-22 21:51] LABS: 25-OH Vitamin D, Total 34.2 ng/mL (30-100)
[2023-03-22 22:00] LABS: Thyroid Stimulating Hormone 1.76 uIU/mL (0.465-4.68)
[2023-03-22 22:29] LABS: Vitamin B12 > 1000 pg/mL (239-931)
== END ==
PROVIDERS: PCP Physician Assistant; Visit Provider Physician Assistant
DX: E03.9 Hypothyroidism, unspecified (principal); E55.9 Vitamin D deficiency, unspecified; D50.9 Iron deficiency anemia, unspecified; Z79.899 Other long term (current) drug therapy
CPT/HCPCS: 80053; 80061; 82306; 82607; 84443; 85025

== ENCOUNTER 2023-08-07 20:42 | Outpatient (CLI) | payer MEDICARE, OTHER, SELFPAY ==
[2023-08-07 17:58] LABS: Basophils % 0.6 % (0.1-2.0); Eosinophils # 0.3 K/mm3 (0.0-0.4); Eosinophils % 5.6 % (0.1-12.0); Hematocrit 38.6 % (37.0-47.0); Hemoglobin 12.2 g/dL (12.2-16.2); Lymphocytes # 1.3 K/mm3 (0.7-4.5); Lymphocytes % 30.1 % (10-50); Mean Corpuscular HGB Conc 31.6 g/dL (31.8-35.4); Mean Corpuscular Hemoglobin 33.3 pg (27.0-31.2); Mean Corpuscular Volume 105.3 fl (81-99); Monocytes # 0.4 K/mm3 (0.1-1.0); Neutrophils # 2.4 K/mm3 (1.8-7.8); Neutrophils % 54.7 % (37.0-80.0); Platelet Count 165 K/mm3 (142-424); Red Blood Count 3.66 M/mm3 (4.20-5.40); Red Cell Distribution Width 14.3 % (11.5-17.5); White Blood Count 4.4 K/mm3 (4.8-10.8)
[2023-08-07 18:49] LABS: Chloride 113 mmol/L (98-107); Sodium 142 mmol/L (136-145)
[2023-08-07 18:50] LABS: Potassium 4.4 mmoL/L (3.5-5.1)
[2023-08-07 18:52] LABS: Alanine Aminotransferase 27 U/L (12-78); Albumin Level 3.6 g/dl (3.5-5.0); Albumin/Globulin Ratio 1.3 (1.1-1.8); Alkaline Phosphatase 73 U/L (38-126); Anion Gap 8.4 mEq/L (5-15); Aspartate Amino Transferase 32 U/L (14-36); Bilirubin,Total 0.4 mg/dl (0.2-1.3); Blood Urea Nitrogen 15 mg/dl (7-17); Carbon Dioxide 25 mmol/L (22.0-30.0); Chol/HDL Ratio 3.1 (1-3.5); Cholesterol 176 mg/dl (140-200); Estimated Glomerular Filt Rate 69 ml/min (>60); GFR (African American) 84 ML/MIN (>60); Globulin 2.8 g/dL (1.3-3.2); Glucose 92 mg/dl (74-100); HDL Cholesterol 56 mg/dl (40-60); Total Protein,Serum 6.4 g/dl (6.3-8.2); Triglycerides 105 mg/dl (30-150); VLDL Cholesterol 21 mg/dL (0-40)
[2023-08-07 19:15] LABS: Direct LDL Cholesterol 79.75 mg/dL (100-129)
[2023-08-07 19:27] LABS: Thyroid Stimulating Hormone 1.95 uIU/mL (0.465-4.68)
[2023-08-07 19:48] LABS: Vitamin B12 > 1000 pg/mL (239-931)
[2023-08-07 20:23] LABS: 25-OH Vitamin D, Total 44.2 ng/mL (30-100)
== END 2023-08-07 23:59 ==
PROVIDERS: PCP Physician Assistant; Visit Provider Physician Assistant
DX: E78.5 Hyperlipidemia, unspecified (principal); E55.9 Vitamin D deficiency, unspecified; E03.9 Hypothyroidism, unspecified; E53.8 Deficiency of other specified B group vitamins
CPT/HCPCS: 80053; 80061; 82306; 82607; 84443; 85025

== ENCOUNTER 2023-08-21 09:02 | Outpatient (CLI) | payer MEDICARE, OTHER, SELFPAY ==
[2023-08-21 09:26] LABS: Basophils # 0.1 K/mm3 (0-0.2); Basophils % 1.4 % (0.1-2.0); Eosinophils # 0.2 K/mm3 (0.0-0.4); Eosinophils % 4.8 % (0.1-12.0); Hematocrit 37.4 % (37.0-47.0); Hemoglobin 11.8 g/dL (12.2-16.2); Lymphocytes # 1.2 K/mm3 (0.7-4.5); Lymphocytes % 29.1 % (10-50); Mean Corpuscular HGB Conc 31.4 g/dL (31.8-35.4); Mean Corpuscular Hemoglobin 32.7 pg (27.0-31.2); Mean Corpuscular Volume 104.1 fl (81-99); Monocytes # 0.3 K/mm3 (0.1-1.0); Monocytes % 7.4 % (1.7-9.3); Neutrophils # 2.4 K/mm3 (1.8-7.8); Neutrophils % 57.4 % (37.0-80.0); Platelet Count 140 K/mm3 (142-424); Red Cell Distribution Width 14.3 % (11.5-17.5); White Blood Count 4.2 K/mm3 (4.8-10.8)
== END 2023-08-21 23:59 ==
LOC: LAB 09:04
PROVIDERS: PCP Physician Assistant; Visit Provider Internal Medicine Medical Oncology
DX: D50.9 Iron deficiency anemia, unspecified (principal)
CPT/HCPCS: 36415; 85025

== ENCOUNTER 2023-11-09 10:55 | Day surgery (SDC) | payer MEDICARE, OTHER, SELFPAY ==
[2023-11-09 11:14] VITALS: BMI 26.6
[2023-11-09] MEDS: 0.9 % SODIUM CHLORIDE 1000ML 1,000 ML 25 ML IV (11:30)
[2023-11-09 11:45] LABS: Basophils # 0.1 K/mm3 (0-0.2); Eosinophils # 0.2 K/mm3 (0.0-0.4); Eosinophils % 4.4 % (0.1-12.0); Hematocrit 37.3 % (37.0-47.0); Hemoglobin 12.2 g/dL (12.2-16.2); Lymphocytes # 1.5 K/mm3 (0.7-4.5); Lymphocytes % 32.3 % (10-50); Mean Corpuscular HGB Conc 32.7 g/dL (31.8-35.4); Mean Corpuscular Hemoglobin 33.5 pg (27.0-31.2); Mean Corpuscular Volume 102.5 fl (81-99); Mean Platelet Volume 8.3 fl (7.4-10.4); Monocytes # 0.4 K/mm3 (0.1-1.0); Monocytes % 7.6 % (1.7-9.3); Neutrophils # 2.6 K/mm3 (1.8-7.8); Neutrophils % 54.6 % (37.0-80.0); Platelet Count 146 K/mm3 (142-424); Red Blood Count 3.64 M/mm3 (4.20-5.40); Red Cell Distribution Width 14.5 % (11.5-17.5); White Blood Count 4.7 K/mm3 (4.8-10.8)
[2023-11-09 11:56] LABS: Anion Gap 13.3 mEq/L (5-15); Blood Urea Nitrogen 18 mg/dl (7-17); Calcium 9.2 mg/dl (8.4-10.2); Carbon Dioxide 24 mmol/L (22.0-30.0); Chloride 109 mmol/L (98-107); Creatinine Clearance Estimated 55 mL/min (50-200); Estimated Glomerular Filt Rate 60 ml/min (>60); GFR (African American) 73 ML/MIN (>60); Glucose 109 mg/dl (74-100); Potassium 4.3 mmoL/L (3.5-5.1); Sodium 142 mmol/L (136-145)
[2023-11-09 12:29] VITALS: BP 154/104; PULSE 132; PULSE 137; RESP 20; O2SAT 95
[2023-11-09] MEDS: dilTIAZem 25MG/5ML VIAL 15 MG IV (12:52)
[2023-11-09] MEDS: APIXABAN 5MG TABLET 5 MG PO (12:52)
[2023-11-09] MEDS: LORazepam 2MG/ML VIAL 1 MG IV (12:53)
[2023-11-09 13:18] VITALS: BP 126/75; PULSE 99; RESP 18; O2SAT 99
[2023-11-09] MEDS: PROPOFOL 10MG/ML 20ML VIAL 40 MG IV (13:22)
[2023-11-09 13:23] VITALS: BP 134/52; PULSE 77; RESP 19; O2SAT 99
--- NOTE | 2023-11-09 13:25 | ECG_ITS ---
APPROVED REPORT Exam: Resting ECG HR:72 bpm ECG Measurements Heart Rate 72 AXES MI 201 P 88 QRSd 75 QRS 1 QT 377 T 1 QTc 402 Conclusion SINUS RHYTHM NORMAL ECG UNCONFIRMED REPORT Electronically signed by : Robert Patel MD 11/11/2023 08:30:19
[2023-11-09 13:29] VITALS: BP 117/69; PULSE 73; RESP 20; O2SAT 99
[2023-11-09 13:38] VITALS: BP 119/78; PULSE 75; RESP 20; O2SAT 95
--- NOTE | 2023-11-12 10:27 | EXP.CARDIOVE ---
[facility] Cardioversion Cardioversion Date: 11/09/23 Provider:: Colleen Cabrera MD Procedure Performed:: Cardioversion Diagnosis:: afib Procedure Summary:: Procedure start 1320: Patient was sedated with 40 mg of propofol and given 15 mg of Cardizem IV prior to procedure. Patient underwent successful cardioversion x 1 shock with 150 J. Procedure ended at 1321. Complications:: None Conculsion:: Patient discharged on Cardizem 180 mg daily
== END 2023-11-09 13:48 | disposition home or self-care (01) ==
PROVIDERS: PCP Physician Assistant; Visit Provider Internal Medicine
DX: I48.0 Paroxysmal atrial fibrillation (principal); Z79.899 Other long term (current) drug therapy
CPT/HCPCS: 36415; 80048; 85025; 92960; 93005; 99152; J2060

== ENCOUNTER 2023-11-11 08:05 | Emergency (ER) | payer MEDICARE, OTHER, SELFPAY ==
[2023-11-11 08:07] VITALS: BP 158/76; PULSE 65; RESP 17; TEMP 36.7; O2SAT 98; BMI 25.8
--- NOTE | 2023-11-11 08:12 | ECG_ITS ---
APPROVED REPORT Exam: Resting ECG HR:63 bpm ECG Measurements Heart Rate 63 AXES SC 225 P 75 QRSd 79 QRS -9 QT 399 T 10 QTc 407 Conclusion SINUS RHYTHM WITH FIRST DEGREE AV BLOCK ABNORMAL ECG Electronically signed by : GERALD LOCKE, 11/11/2023 15:51:44
--- NOTE | 2023-11-11 08:19 | PC.NURSE ---
DR LOCKE AT BEDSIDE
--- NOTE | 2023-11-11 08:23 | CT_ITS ---
PROCEDURE INFORMATION: Exam: CT Head Without Contrast Exam date and time: 11/11/2023 8:56 AM Age: 78 years old Clinical indication: Pain; Headache not specified; Additional info: New onset headache, HTN, no prior HX SEE TECHNIQUE: Imaging protocol: Computed tomography of the head without contrast. Radiation optimization: All CT scans at this facility use at least one of these dose optimization techniques: automated exposure control; mA and/or kV adjustment per patient size (includes targeted exams where dose is matched to clinical indication); or iterative reconstruction. COMPARISON: [facility] soft tissue head and neck 05/03/2018 2:30 PM FINDINGS: Brain: No acute intracranial hemorrhage.. Well delineated low-attenuation in the right posterior parietal region consistent with prior infarction.. There is mild diffuse heterogeneity of the white matter attenuation, consistent with chronic white matter ischemic changes. Mild cerebral atrophy Cerebral ventricles: No ventriculomegaly. Paranasal sinuses: There is nonspecific fluid within the ethmoid sinuses. Mastoid air cells: Visualized mastoid air cells are well aerated. Bones: Unremarkable. No acute fracture. Soft tissues: Unremarkable. IMPRESSION: 1. No acute intracranial hemorrhage.. 2. Well delineated low-attenuation in the right posterior parietal region consistent with prior infarction..
--- NOTE | 2023-11-11 08:23 | CT_ITS ---
PROCEDURE INFORMATION: Exam: CTA Neck With Contrast Exam date and time: 11/11/2023 8:58 AM Age: 78 years old Clinical indication: Pain; Headache; Additional info: New onset headache, HTN, no prior HX SEE TECHNIQUE: Imaging protocol: Computed tomographic angiography of the neck with contrast. Exam focused on the cervical segments of the vasculature. 3D rendering (Not supervised by radiologist): MIP and/or 3D reconstructed images were created by the technologist. Radiation optimization: All CT scans at this facility use at least one of these dose optimization techniques: automated exposure control; mA and/or kV adjustment per patient size (includes targeted exams where dose is matched to clinical indication); or iterative reconstruction. Contrast material: ISOVUE 370; Contrast volume: 100 ml; Contrast route: INTRAVENOUS (IV); COMPARISON: CT ANGIO HEAD 11/11/2023 8:58 AM FINDINGS: Right common carotid artery: No stenosis. No dissection or occlusion. Right internal carotid artery: No stenosis of the extracranial segment. No dissection or occlusion. Right external carotid artery: No occlusion or stenosis of the origin. Left common carotid artery: No stenosis. No dissection or occlusion. Left internal carotid artery: No stenosis of the extracranial segment. No dissection or occlusion. Left external carotid artery: No occlusion or stenosis of the origin. Right vertebral artery: No stenosis. No dissection or occlusion. Left vertebral artery: No stenosis. No dissection or occlusion. Soft tissues: No masses or edema. Bones/joints: No acute fracture, subluxations, or bone lesions. IMPRESSION: No stenosis or occlusion in the neck.. REFERENCES: NASCET CRITERIA. The degree of stenosis in the cervical segment of the internal carotid artery is based on NASCET criteria. Normal is no stenosis. Mild is less than 50% stenosis. Moderate is 50-69% stenosis. Severe is 70% to 99% stenosis. Total occlusion is no detectable patent lumen.
--- NOTE | 2023-11-11 08:23 | CT_ITS ---
PROCEDURE INFORMATION: Exam: CTA Head With Contrast, Arteriography Exam date and time: 11/11/2023 8:58 AM Age: 78 years old Clinical indication: Pain; Headache; Additional info: New onset headache, HTN, no prior HX SEE TECHNIQUE: Imaging protocol: Computed tomographic angiography of the head with contrast. Exam focused on the arteries. 3D rendering (Not supervised by radiologist): MIP and/or 3D reconstructed images were created by the technologist. Radiation optimization: All CT scans at this facility use at least one of these dose optimization techniques: automated exposure control; mA and/or kV adjustment per patient size (includes targeted exams where dose is matched to clinical indication); or iterative reconstruction. Contrast material: ISOVUE 370; Contrast volume: 100 ml; Contrast route: INTRAVENOUS (IV); COMPARISON: CT HEAD/BRAIN WO CON 11/11/2023 8:56 AM FINDINGS: ANTERIOR CIRCULATION: Right internal carotid artery: Intracranial segment is patent with no significant stenosis. No aneurysm. Right middle cerebral artery: No occlusion or significant stenosis. No aneurysm. Right anterior cerebral artery: No occlusion or significant stenosis. No aneurysm. Left internal carotid artery: Intracranial segment is patent with no significant stenosis. No aneurysm. Left middle cerebral artery: No occlusion or significant stenosis. No aneurysm. Left anterior cerebral artery: No occlusion or significant stenosis. No aneurysm. POSTERIOR CIRCULATION: Right vertebral artery: No occlusion or significant stenosis. No aneurysm. Left vertebral artery: No occlusion or significant stenosis. No aneurysm. Basilar artery: No occlusion or significant stenosis. No aneurysm. Right posterior cerebral artery: No occlusion or significant stenosis. No aneurysm. Hypoplastic P1. Left posterior cerebral artery: No occlusion or significant stenosis. No aneurysm. Brain: No definite mass, mass effect, or midline shift. Cerebral ventricles: No ventriculomegaly. Bones/joints: No acute fracture or focal bone lesions. Soft tissues: No masses or swelling. IMPRESSION: No large vessel occlusion. No acute intracranial abnormalities.
--- NOTE | 2023-11-11 08:26 | HMH.EDGENADL ---
Discharge Plan Disposition Chief Complaint: Recheck/Abnormal Lab/Rx Prescriptions Prescriptions: New fluticasone propionate 50 mcg/actuation spray,suspension 1 spray intranasal BID Qty: 16 0RF Rx Instructions: administer into each nostril cetirizine [Zyrtec] 10 mg tablet 10 mg PO DAILY Qty: 30 0RF amoxicillin-pot clavulanate 875-125 mg tablet 1 tab PO BID Qty: 20 0RF No Action calcium carbonate 500 mg calcium (1,250 mg) capsule 500 mg PO DAILY nitroglycerin 0.4 mg tablet, sublingual 0.4 mg SUBLINGUAL Q5M PRN (Reason: Chest Pain) latanoprost 0.005 % drops 1 drp OPHTHALMIC DAILY timolol maleate 0.5 % drops 1 drp Eye-Right DIRECTED bisoprolol fumarate 10 mg tablet 10 mg PO DAILY Eliquis 5 mg tablet 5 mg PO BID Qty: 60 2RF fluticasone propionate 50 mcg/actuation spray,suspension See Rx Instructions .ROUTE .COMPLEX Qty: 16 5RF Dose Instruction: USE 1 SPRAY IN EACH NOSTRIL DAILY Rx Instructions: USE 1 SPRAY IN EACH NOSTRIL DAILY atorvastatin 40 mg tablet 40 mg PO DAILY Qty: 90 3RF omeprazole 20 mg capsule,delayed release(DR/EC) See Rx Instructions .ROUTE .COMPLEX Qty: 180 3RF Dose Instruction: TAKE 1 CAPSULE TWICE A DAY Rx Instructions: TAKE 1 CAPSULE TWICE A DAY cyanocobalamin-cobamamide 5,000-100 mcg tablet, sublingual See Rx Instructions .ROUTE .COMPLEX Qty: 90 3RF Dose Instruction: PLACE 1 TABLET UNDER THE TONGUE ONCE DAILY Rx Instructions: PLACE 1 TABLET UNDER THE TONGUE ONCE DAILY levothyroxine [Synthroid] 100 mcg tablet See Rx Instructions .ROUTE .COMPLEX Qty: 90 3RF Dose Instruction: TAKE 1 TABLET DAILY Rx Instructions: TAKE 1 TABLET DAILY diltiazem HCl [Cardizem CD] 180 mg Capsule,Extended Release 24hr 180 mg PO DAILY Qty: 30 3RF Referrals Follow up/Referrals: Hui Stevens APRN [Primary Care Provider] - See instructions Activity Restrictions/Add. Instructions Additional Instructions/Restrictions: You were evaluated in the emergency department today. At this time, we feel your symptoms could be related to sinus infection as well as the Afrin that you were using for the nasal congestion. It was like you have had a prior stroke on CT scan potentially, however there is no evidence of narrowing of the blood vessels that go to your brain. Please filler picker your prescriptions at the pharmacy and take them as prescribed. Please keep an eye on your blood pressure at home. Return to the emergency department for any new or worsening symptoms. Follow-up closely with your primary care provider and associate editor and give them a log of your blood pressures. Clinical Impressions Clinical Impression: Headache, High blood pressure, Sinusitis, Cerebrovascular accident, old Instructions Patient Instructions: DI for Sinusitis, DI for High Blood Pressure, DI for Headache Discharge ED Provider: Emily Cline General Adult HPI General Chief complaint: Recheck/Abnormal Lab/Rx Stated complaint: High Bp. Headache at base of head, A-Fib 11/08 Time Seen by Provider: 11/11/23 08:09 History of Present Illness HPI narrative: This patient is an 78-year-old female with a history of paroxysmal atrial fibrillation status post cardioversion 11/09/2023, hypertension, hyperlipidemia, CAD, hypertensive heart disease, and hypothyroidism presenting to the emergency department for evaluation with concern for headache and high blood pressure readings at home. Patient notes that she woke up around 5:00 this morning with a headache. She states it feels like a sinus headache with pressure in the front of her head. She notes her allergies have been worse than usual, prompting use of afrin. She took her blood pressure at home several times this morning and it was 140s to 150s systolic. Usually she runs in the low 100s to 120s. She denies any symptoms, such as fever, vision changes, numbness, tingling, speech disturbance, unilateral weakness, gait disturbance, or other concerns. Related Data Home Medications Medication Instructions Recorded Confirmed calcium carbonate 500 mg PO DAILY 07/24/17 11/09/23 nitroglycerin 0.4 mg sublingual 0.4 mg sublingual Q5M PRN Chest 07/24/17 11/09/23 tablet Pain latanoprost 0.005 % eye drops 1 drp ophthalmic (eye) DAILY 10/25/20 11/09/23 bisoprolol fumarate 10 mg tablet 10 mg PO DAILY 03/27/23 11/09/23 timolol maleate 0.5 % eye drops 1 drp Eye-Right DIRECTED 07/24/23 11/09/23 Previous Rx's Medication Instructions Recorded fluticasone propionate 50 See Rx Instructions .Route 11/23/22 mcg/actuation nasal .COMPLEX #16 grams spray,suspension atorvastatin 40 mg tablet 40 mg PO DAILY #90 tabs 01/11/23 apixaban 5 mg tablet (Eliquis) 5 mg PO BID #60 tabs 03/27/23 omeprazole 20 mg capsule,delayed See Rx Instructions .Route 07/18/23 release .COMPLEX #180 caps cyanocobalamin (B12)-cobamamide See Rx Instructions .Route 07/26/23 5,000 mcg-100 mcg sublingual tablet .COMPLEX #90 tabs levothyroxine 100 mcg tablet See Rx Instructions .Route 09/03/23 (Synthroid) .COMPLEX #90 tabs diltiazem HCl 180 mg 180 mg PO DAILY #30 caps 11/09/23 capsule,extended release 24 hr (Cardizem CD) amoxicillin 875 mg-potassium 1 tab PO BID #20 tabs 11/11/23 clavulanate 125 mg tablet cetirizine 10 mg tablet (Zyrtec) 10 mg PO DAILY #30 tabs 11/11/23 fluticasone propionate 50 1 spray intranasal BID #16 grams 11/11/23 mcg/actuation nasal spray,suspension Allergies Allergy/AdvReac Type Severity Reaction Status Date / Time morphine [MORPHINE] Allergy Unknown Verified 11/09/23 12:28 [facility] Disclaimer: The information contained in this section may have been updated after the patient was seen, as this information can be updated by other users. Medical History Hearing loss Paroxysmal A-fib Loss of balance Ear itching Brittle nails Unsteady gait Bilateral tinnitus Vitamin D deficiency Hypothyroidism GERD (gastroesophageal reflux disease) Allergic rhinitis Anemia CAD (coronary artery disease) HHD (hypertensive heart disease) HLD (hyperlipidemia) Surgical History History of bilateral knee arthroplasty History of total hip replacement Family History Other Cancer Coronary artery disease Heart attack Social History Smoking Status: Never smoker alcohol intake: current alcohol intake frequency: a few times a week substance use type: denies use current occupational status: retired Travel in the last 8 weeks: Inside the [place] caffeine: Yes ROS Obtained: Yes All systems reviewed & no additional complaints except as documented Physical Exam General General appearance: alert and in no apparent distress Head Head exam: atraumatic and normocephalic Eye Eye exam: Present normal appearance, PERRL and EOMI ENT ENT exam: Present normal exam, normal oropharynx, mucous membranes moist and normal external ear exam Neck Neck exam: Present normal inspection, full ROM and trachea midline; Absent tenderness Chest Chest inspection: Present normal inspection and symmetric chest wall rise; Absent tenderness Respiratory Respiratory exam: Present normal lung sounds bilaterally; Absent respiratory distress, wheezes, stridor or accessory muscle use Cardiovascular Cardiovascular exam: Present regular rate and normal rhythm Abdominal Exam Abdominal exam: Present soft; Absent distention, tenderness or guarding Extremities Exam Extremities exam: Present normal inspection, full ROM and normal capillary refill; Absent tenderness or edema Back Exam Back exam: Present normal inspection and full ROM; Absent tenderness Neurological Exam Neurological exam: Present alert, oriented X3, CN II-XII intact and normal gait; Absent motor sensory deficit Psychiatric Psychiatric exam: Present normal affect and normal mood Skin Skin exam: Present warm and dry Medical Decision Making Medical Records Medical records reviewed: Yes I reviewed the patient's medical records. Paulie Inquiry Pt receiving controlled substance: No Vital Signs: 11/11/23 08:07 11/11/23 08:30 11/11/23 09:07 Temperature 98.0 F Temperature Source Oral Pulse Rate 61 67 Pulse Rate [Right] 65 Respiratory Rate 17 18 Blood Pressure 145/78 H 150/84 H Blood Pressure [Right Arm] 158/76 H Blood Pressure Mean 116 Blood Pressure Mean [Right Arm] 103 Blood Pressure Source [Right Arm] Automatic Cuff 02 Sat by Pulse Oximetry 98 98 98 Oxygen Delivery Method Room Air Room Air Room Air 11/11/23 09:30 11/11/23 10:02 Temperature Temperature Source Pulse Rate 64 67 Pulse Rate [Right] Respiratory Rate 14 Blood Pressure 133/66 143/79 H Blood Pressure [Right Arm] Blood Pressure Mean 102 100 Blood Pressure Mean [Right Arm] Blood Pressure Source [Right Arm] 02 Sat by Pulse Oximetry 97 97 Oxygen Delivery Method Room Air Room Air Lab Data Lab results reviewed: Yes I reviewed the patient's lab results. Lab Results 11/11/23 08:10: WBC 4.8, RBC 3.80 L, Hgb 12.4, Hct 38.4, MCV 100.9 H, MCH 32.6 H, MCHC 32.3, RDW 15.0, Plt Count 165, MPV 8.6, Neut % (Auto) 53.7, Lymph % (Auto) 33.7, [place] % (Auto) 8.4, Eos % (Auto) 3.4, Baso % (Auto) 0.7, Neut # (Auto) 2.6, Lymph # (Auto) 1.6, [place] # (Auto) 0.4, Eos # (Auto) 0.2, Baso # (Auto) 0.0, Sodium 141, Potassium 4.2, Chloride 110 H, Carbon Dioxide 22, Anion Gap 13.2, BUN 12 D, Creatinine 0.90, Estimated Creat Clear 53, Estimated GFR 60, Est GFR ( Amer) 73, Glucose 102 H, Calcium 9.2, Total Bilirubin 0.4, AST 33, ALT 30, Alkaline Phosphatase 70, Troponin I < 0.01, Total Protein 7.5, Albumin 4.1, Globulin 3.4 H, Albumin/Globulin Ratio 1.2, TSH 8.17 H, Thyroxine (T4) 6.6 11/11/23 08:44: Urine Color Yellow, Urine Appearance Clear, Urine pH 5.5, Ur Specific Lincoln >= 1.030, Urine Protein Negative, Urine Glucose (UA) Negative, Urine Ketones Negative, Urine Blood Negative, Urine Nitrate Negative, Urine Bilirubin Negative, Urine Urobilinogen 0.2, Ur Leukocyte Esterase Negative, Urine RBC None, Urine WBC None, Ur Squamous Epith Cells Occasional, Urine Bacteria Trace 11/11/23 08:10 11/11/23 08:10 Orders (Tests/Meds): ED MEDICATIONS Generic Name Dose Route Start Last Admin Trade Name Freq PRN Reason Stop Dose Admin Sodium Chloride 10 ml 11/11/23 08:46 Sodium Chloride 0.9% 10ml Flush Syringe IV 12/11/23 08:45 ONCE PRN IV patency Discontinued Medications Generic Name Dose Route Start Last Admin Trade Name Freq PRN Reason Stop Dose Admin Acetaminophen 1,000 mg 11/11/23 08:23 11/11/23 08:44 Acetaminophen 500mg Tab PO 11/11/23 08:24 1,000 mg ONCE ONE Administration Lactated Ringer's 1,000 mls @ 999 mls/hr 11/11/23 08:23 11/11/23 08:46 Lactated Ringer's 1000 Ml Bag IV 11/11/23 09:23 999 mls/hr .Q1H1M ONE Administration Iopamidol 100 ml 11/11/23 09:06 11/11/23 09:07 Iopamidol-370 (76%);100ml Bottle IV 11/11/23 09:07 100 ml ONCE ONE Administration Ketorolac Tromethamine 15 mg 11/11/23 08:23 11/11/23 08:45 Ketorolac 30mg/Ml Vial IV 11/11/23 08:24 15 mg ONCE ONE Administration Metoclopramide HCl 5 mg 11/11/23 08:23 11/11/23 08:44 Metoclopramide Hcl 10mg/2ml Vial IVP 11/11/23 08:24 5 mg ONCE ONE Administration Sodium Chloride 10 ml 11/11/23 09:06 11/11/23 09:06 Sodium Chloride 0.9% 10ml Syr (Rad Only) IV 11/11/23 09:07 10 ml ONCE ONE Administration Sodium Chloride 50 ml 11/11/23 09:06 11/11/23 09:06 0.9 % Sodium Chloride 50 Ml Vial IV 11/11/23 09:07 50 ml ONCE ONE Administration ORDERS Category Date Time Status CT angio head Stat Cat Scan 11/11/23 08:[address] angio neck Stat Cat Scan 11/11/23 08:[address] head/brain wo con Stat Cat Scan 11/11/23 08:23 Completed Complete Blood Count Auto Diff Stat Lab 11/11/23 08:10 Completed Comprehensive Metabolic Panel Stat Lab 11/11/23 08:10 Completed T4 (Thyroxine) Stat Lab 11/11/23 08:10 Completed Thyroid Stimulating Hormone Stat Lab 11/11/23 08:10 Completed Trop I [Troponin I] Stat Lab 11/11/23 08:10 Completed Troponin I Q3H Lab 11/11/23 11:30 Ordered Troponin I Q3H Lab 11/11/23 14:30 Ordered UA [Urinalysis and Microscopic] Stat Lab 11/11/23 08:44 Completed ECG Data Tracing #1: I reviewed this ECG and interpreted as documented below: Normal sinus rhythm with a ventricular rate of 63 bpm. First-degree AV block with a WI interval of [address] changes concerning for ischemia. No significant changes noted from prior ECG. ECG initial impression date: 11/11/23 ECG initial impression time: 08:13 Medical Decision Narrative: In summary, this patient is a 78-year-old female presenting to the Emergency Department for evaluation of headache and high blood pressure readings at home. Differential diagnoses considered include but are not limited to migraine, tension headache, sinusitis, afrin-induced hypertension, allergic rhinitis, hypertensive urgency, hypertensive emergency, intracranial hemorrhage, CVA, intracranial mass. Ruling out the most morbid conditions drove assessment. It should be noted patient's history includes hypertension, hyperlipidemia, CAD, hypertensive heart disease, and paroxysmal atrial fibrillation which may or may not be at goal therapy. This complicates all aspects of care by increasing patient's risk for morbidity. I reviewed patient's past medical records and noted cardioversion 2 days ago as per HPI. On exam, the patient is alert and oriented and neurologically intact. She has mild hypertension with systolic of 158 upon arrival. EKG obtained is reassuring. Workup included CBC, CMP, troponin, CT head, CT angiogram head and neck. Patient was given a bolus of IV fluids as well as IV Toradol, acetaminophen, and Reglan for treatment of headache. I independently interpreted CT scan prior to the radiologist read and noted findings concerning for sinusitis with fluid in the sinuses. Please see their read for final interpretation. They do note an area of prior CVA that is well-developed. No vascular stenosis. labs were obtained that demonstrated no acutely concerning abnormalities with negative troponin and normal kidney function. No significant leukocytosis. On reassessment, patient had good improvement after administration of interventions above. Systolics are in the 140s. At this time, I feel her symptoms are likely related to sinusitis as well as potentially high blood pressure related to the Afrin. She was given prescriptions for Augmentin, Zyrtec, and Flonase. Given that she is neurologically intact with reassuring workup and exam, I feel that she is appropriate for discharge home with prescriptions and instructions for supportive management of sinusitis. Strict return precautions were given as well as instructions for close outpatient follow-up. The patient was discharged after all questions were answered. Critical Care Critical Care Time Critical Care Time: No
[2023-11-11 08:30] VITALS: BP 145/78; PULSE 61; RESP 18; O2SAT 98
[2023-11-11 08:31] LABS: Basophils % 0.7 % (0.1-2.0); Eosinophils # 0.2 K/mm3 (0.0-0.4); Eosinophils % 3.4 % (0.1-12.0); Hematocrit 38.4 % (37.0-47.0); Hemoglobin 12.4 g/dL (12.2-16.2); Lymphocytes # 1.6 K/mm3 (0.7-4.5); Lymphocytes % 33.7 % (10-50); Mean Corpuscular HGB Conc 32.3 g/dL (31.8-35.4); Mean Corpuscular Hemoglobin 32.6 pg (27.0-31.2); Mean Corpuscular Volume 100.9 fl (81-99); Mean Platelet Volume 8.6 fl (7.4-10.4); Monocytes # 0.4 K/mm3 (0.1-1.0); Monocytes % 8.4 % (1.7-9.3); Neutrophils # 2.6 K/mm3 (1.8-7.8); Neutrophils % 53.7 % (37.0-80.0); Platelet Count 165 K/mm3 (142-424); White Blood Count 4.8 K/mm3 (4.8-10.8)
[2023-11-11 08:32] LABS: Chloride 110 mmol/L (98-107); Potassium 4.2 mmoL/L (3.5-5.1); Sodium 141 mmol/L (136-145)
[2023-11-11 08:35] LABS: Alanine Aminotransferase 30 U/L (12-78); Albumin Level 4.1 g/dl (3.5-5.0); Albumin/Globulin Ratio 1.2 (1.1-1.8); Alkaline Phosphatase 70 U/L (38-126); Anion Gap 13.2 mEq/L (5-15); Aspartate Amino Transferase 33 U/L (14-36); Bilirubin,Total 0.4 mg/dl (0.2-1.3); Blood Urea Nitrogen 12 mg/dl (7-17); Calcium 9.2 mg/dl (8.4-10.2); Carbon Dioxide 22 mmol/L (22.0-30.0); Creatinine Clearance Estimated 53 mL/min (50-200); Estimated Glomerular Filt Rate 60 ml/min (>60); GFR (African American) 73 ML/MIN (>60); Globulin 3.4 g/dL (1.3-3.2); Glucose 102 mg/dl (74-100); Total Protein,Serum 7.5 g/dl (6.3-8.2)
--- NOTE | 2023-11-11 08:43 | PC.NURSE ---
PT ASSISTED TO BR
[2023-11-11] MEDS: ACETAMINOPHEN 500MG TAB 1000 MG PO (08:44)
[2023-11-11] MEDS: METOCLOPRAMIDE HCL 10MG/2ML VIAL 5 MG IVP (08:44)
[2023-11-11] MEDS: KETOROLAC 30MG/ML VIAL 15 MG IV (08:45)
[2023-11-11] MEDS: LACTATED RINGERS 1000ML 1,000 ML 999 ML IV (08:46)
[2023-11-11 08:48] LABS: Troponin I < 0.01 ng/ml (0.00-0.034)
--- NOTE | 2023-11-11 08:48 | PC.NURSE ---
PT TO CT
[2023-11-11 08:54] LABS: Microscopic, Urine URINE MICROSCOPIC (MICROSCOPIC)
[2023-11-11 08:56] LABS: Appearance,Urine CLEAR (Clear); Bilirubin,Urine Negative (Negative); Blood, Urine Negative (Negative); Color,Urine YELLOW (Yellow); Glucose,Urine (UA) Negative (Negative); Ketones,Urine Negative (Negative); Leukocyte Esterase,Urine Negative (Negative); Nitrate,Urine Negative (Negative); PH,Urine 5.5 (5.0-8.5); Protein,Urine Negative (Negative); Specific Gravity, Urine >= 1.030 (1.005-1.030); Urobilinogen,Urine 0.2 EU/dl (0.2)
[2023-11-11 09:02] LABS: Bacteria,Urine Trace /lpf; Squamous Epithelial Cell,Urine Occasional #/hpf (0-5)
--- NOTE | 2023-11-11 09:02 | PC.NURSE ---
pt back to room from CT by DONG
[2023-11-11] MEDS: 0.9 % SODIUM CHLORIDE 50 ML VIAL IV (09:06)
[2023-11-11] MEDS: SODIUM CHLORIDE 0.9% 10ML SYR (RAD ONLY) 10 ML IV (09:06)
[2023-11-11 09:07] VITALS: BP 150/84; PULSE 67; O2SAT 98
[2023-11-11] MEDS: IOPAMIDOL-370 (76%);100ML BOTTLE 100 ML IV (09:07)
[2023-11-11 09:17] LABS: T4 (Thyroxine) 6.6 ug/dl (5.53-11.0)
[2023-11-11 09:30] VITALS: BP 133/66; PULSE 64; O2SAT 97
[2023-11-11 09:30] LABS: Thyroid Stimulating Hormone 8.17 uIU/mL (0.465-4.68)
--- NOTE | 2023-11-11 09:37 | PC.NURSE ---
Rounded on pt, gave warm blanket for comfort and she is asking for breakfast. MD states that would be ok, called dietary for a tray.
--- NOTE | 2023-11-11 09:57 | PC.NURSE ---
breakfast tray set up for pt. coffee provided as well.
[2023-11-11 10:02] VITALS: BP 143/79; PULSE 67; RESP 14; O2SAT 97
--- NOTE | 2023-11-11 10:12 | PC.NURSE ---
called emergency medical tech to check status of ct scan results with [facility]
--- NOTE | 2023-11-11 10:24 | PC.NURSE ---
DR LOCKE AT BEDSIDE TO UPDATE PT AND FAMILY
--- NOTE | 2023-11-11 10:25 | PC.NURSE ---
Dr. Cline at bedside
[2023-11-11 10:28] VITALS: BP 143/79; PULSE 63; RESP 20; TEMP 36.7; O2SAT 97
== END 2023-11-11 10:53 | disposition home or self-care (01) ==
PROVIDERS: Emergency Provider Emergency Medicine; PCP Family Medicine
DX: R51.9 Headache, unspecified (principal); J01.90 Acute sinusitis, unspecified; I44.0 Atrioventricular block, first degree; I48.0 Paroxysmal atrial fibrillation; I11.9 Hypertensive heart disease without heart failure; I25.10 Atherosclerotic heart disease of native coronary artery without angina pectoris; E03.9 Hypothyroidism, unspecified; Z79.01 Long term (current) use of anticoagulants
CPT/HCPCS: 70450; 70496; 70498; 80053; 81001; 84436; 84443; 84484; 85025; 93005; 96361; 96374; 96375; 99285; J1885; J2765; J7120; Q9967

== ENCOUNTER 2023-11-29 13:06 | Outpatient (CLI) | payer MEDICARE, OTHER, SELFPAY ==
--- NOTE | 2023-11-29 13:15 | CA_ITS ---
APPROVED REPORT EXAM: Comprehensive 2D, Doppler, and color-flow Echocardiogram [employer]: Camille Vaz RT(R) Ht: 5 ft 7 in Wt: 169lbs BSA: 1.88 BP: 147/70 mmHg Indications: CAD, AFIB, HHD, DD, hx cardioversion 11/09/23, hyperlipidemia 2D Dimensions LA Volume 37.80 mL LA Volume Index 20.11 mL/m2 (M/F) 16-34 EF AP4 64.10 % GL Strain -19.6 % M-Mode Dimensions RVDd 2.29 cm (0.9-2.6) LA Diam 3.88 cm (1.9-4.0) LVDd 4.59 cm (3.5-5.7) LVDs 3.46 cm (3.5-5.7) IVSd 0.72 cm (0.6-1.1) PWd 0.76 cm (0.6-1.1) EF (Teich) 48.90% FS 24.60% EDV (Teich) 96.80 mL ESV (Teich) 49.50 mL LV Diastology E Decel Time 297 (160-240 msec) E/A Ratio 1.0 Aortic Valve AI PHT 515.00 ms Mitral Valve MV E Max Girma. 127.0 (40-130 cm/s) MV A Velocity 121.0 (40-130 cm/s) E/A Ratio 1.05 MV PHT 87.0 ms Left Ventricle The left ventricle is normal size. The left ventricular systolic function is normal. The left ventricular ejection fraction is within the normal range. There is increased LV wall thickness. Proximal septal thickening is noted. There is normal LV segmental wall motion. Transmitral Doppler flow pattern suggests impaired LV relaxation. LVEF is 55%. Right Ventricle The right ventricle is normal size. The right ventricular systolic function is normal. Atria Left atrium is mildly dilated. The right atrium size is normal. There is no Doppler evidence of interatrial shunt. Aortic Valve The aortic valve is mildly thickened. There is no aortic valvular stenosis. Mild aortic regurgitation. Mitral Valve The mitral valve leaflets are mildly thickened. No evidence of mitral valve stenosis. Mild mitral regurgitation. Tricuspid Valve The tricuspid valve leaflets are thin and pliable. Trace tricuspid regurgitation. There is insufficient TR jet to estimate RVSP. Pulmonic Valve The pulmonary valve is normal in structure. Trace pulmonic regurgitation. Great Vessels The aortic root is normal in size. The ascending aorta is not well-visualized. IVC is normal in size and collapses >50% with inspiration. Pericardium There is no pericardial effusion. Other Information Study Quality: Fair Conclusion Normal biventricular systolic function. Mild LA dilation. Mild MR, mild AI. Electronically signed by : Sunni Dupree MD 12/03/2023 00:27:07
== END 2023-11-29 23:59 | disposition home or self-care (01) ==
LOC: RT 13:07
PROVIDERS: Visit Provider Physician Assistant
DX: I48.0 Paroxysmal atrial fibrillation; I51.89 Other ill-defined heart diseases; I35.1 Nonrheumatic aortic (valve) insufficiency
CPT/HCPCS: 93306

== ENCOUNTER 2023-12-20 08:10 | Outpatient (CLI) | payer MEDICARE, OTHER, SELFPAY ==
[2023-12-20 10:23] LABS: Free Thyroxine Index 2.4 ug/dL (5.93-13.13); T4 (Thyroxine) 6.8 ug/dl (5.53-11.0); Triiodothryronine (T3) Uptake 35 % (23.5-40.5)
[2023-12-20 10:36] LABS: Thyroid Stimulating Hormone 4.65 uIU/mL (0.465-4.68)
== END 2023-12-20 23:59 | disposition home or self-care (01) ==
LOC: LAB 08:11
PROVIDERS: PCP Family Medicine; Visit Provider Family Medicine
DX: R79.89 Other specified abnormal findings of blood chemistry (principal); E03.9 Hypothyroidism, unspecified
CPT/HCPCS: 36415; 84436; 84443; 84479

== ENCOUNTER 2023-12-21 12:58 | Outpatient (CLI) | payer MEDICARE, OTHER, SELFPAY ==
--- NOTE | 2023-12-21 12:59 | MM_ITS ---
PROCEDURE INFORMATION: Exam: MG Bilateral Screening 3D Mammography Exam date and time: 12/21/2023 12:44 PM Age: 78 years old Clinical indication: Screening. No family history of breast cancer. TECHNIQUE: Imaging protocol: Bilateral Screening tomosynthesis and 2D mammography including computer-aided detection (CAD) when performed. The technologist's notes document that best images possible were obtained to the patient's abilities. COMPARISON: 1. MG MM DIG SCREENING MAMM BI W/CAD 12/26/2022 9:31 AM 2. MG MM DIG SCREENING MAMM BI W/CAD 12/21/2021 10:34 AM 3. MG MM DIG SCREENING MAMM BI W/CAD 12/01/2020 11:01 AM 4. MG MM DIG SCREENING MAMM BI W/CAD 11/24/2019 10:20 AM FINDINGS: MAMMOGRAPHY: Breast composition: The breasts are heterogeneously dense, which may obscure small masses. Mass: None. Architectural distortion: None. Calcifications: No suspicious calcifications. Asymmetric density: None. Skin thickening: None. Axillary adenopathy: None. IMPRESSION: No mammographic evidence of malignancy. Annual screening is recommended unless otherwise clinically indicated. ASSESSMENT: BI-RADS Category 1: Negative
== END 2023-12-21 23:59 | disposition home or self-care (01) ==
LOC: RAD 12:59
PROVIDERS: PCP Family Medicine; Visit Provider Family Medicine
DX: Z12.31 Encounter for screening mammogram for malignant neoplasm of breast (principal)
CPT/HCPCS: 77063; 77067

== ENCOUNTER 2024-02-13 10:02 | Outpatient (CLI) | payer MEDICARE, OTHER, SELFPAY ==
[2024-02-14 15:59] LABS: Albumin 3.5 g/dL (2.9-4.4); Alpha-1-Globulin 0.2 g/dL (0.0-0.4); Alpha-2-Globulin 0.7 g/dL (0.4-1.0); Gamma Globulin 1.3 g/dL (0.4-1.8); Protein, Total 6.7 g/dL (6.0-8.5)
[2024-02-17 21:07] LABS: Vitamin B1 92.6 nmol/L (66.5-200.0)
[2024-02-18 11:11] LABS: Vitamin B6 5.3 ug/L (3.4-65.2)
[2024-03-25 14:14] LABS: PDF SCANNED IMAGE
== END 2024-02-13 23:59 | disposition home or self-care (01) ==
LOC: LAB 10:04
PROVIDERS: PCP Family Medicine; Visit Provider Specialist
DX: R20.0 Anesthesia of skin (principal); R20.2 Paresthesia of skin; M62.81 Muscle weakness (generalized)
CPT/HCPCS: 36415; 82746; 84155; 84165; 84207; 84425; 86334

== ENCOUNTER 2024-03-10 06:41 | Day surgery (SDC) | payer MEDICARE, OTHER, SELFPAY ==
[2024-03-04 16:36] VITALS: BMI 26.6
[2024-03-10] MEDS: LACTATED RINGERS 1000ML 1,000 ML 25 ML IV (06:57)
[2024-03-10 07:02] VITALS: BP 152/70; PULSE 54; RESP 18; TEMP 36.4; O2SAT 98
--- NOTE | 2024-03-10 07:27 | P.PNANES_ITS ---
[facility] Disclaimer: The information contained in this section may have been updated after the patient was seen, as this information can be updated by other users. Medical History Encounter for pre-operative cardiovascular clearance Tick bite Palpitations Ear itching Decreased pedal pulses Tachyarrhythmia Headache High blood pressure Sinusitis Yeast infection History of atrial fibrillation History of myocardial infarction Hearing loss Paroxysmal A-fib Loss of balance Brittle nails Unsteady gait Bilateral tinnitus Vitamin D deficiency Hypothyroidism GERD (gastroesophageal reflux disease) Allergic rhinitis Anemia CAD (coronary artery disease) HHD (hypertensive heart disease) HLD (hyperlipidemia) Surgical History History of knee surgery History of bilateral hip replacements History of colon surgery History of cholecystectomy History of bilateral knee arthroplasty History of total hip replacement Family History Other Cancer Coronary artery disease Heart attack Hypertension Social History Smoking Status: Never smoker alcohol intake: current alcohol intake frequency: a few times a week substance use type: denies use current occupational status: retired Travel in the last 8 weeks: None household members: spouse housing: house marital status: caffeine: Yes [facility] Anesthesia Checklist Patient Identification Patient Identification: Arm Band and Verbal (Name & ) Structural Data Admitted From: Home Planned Operative Procedure/s: Colonoscopy Consent for Planned Operative Procedure(s) Verified: Yes Verified Documents: Surgical Consent and History and Physical NPO Status Verified Time NPO: 00:00 Additional verifications Anesthesia Reactions: No Airway Assessment Mallampati Score:: Class III C-Spine Mobility Assessed: Yes TMJ Mobility Assessed: Yes Dentition: Good Dentition Neurological Assessment Level of Consciousness: Awake Hx Seizures: No Numbness or tingling in extremities: No Anesthesia Plan Anesthesia Risk discussed: Yes Anesthesia Plan: Verified ASA Class: III Anesthesia Type: MAC
--- NOTE | 2024-03-10 07:43 | EXP.HP ---
History of Present Illness *Admission Date: 03/10/24 *Reason for visit:: Personal history of adenomatous polyps and personal history of colon cancer *History of present illness: Mrs. Saleem is an 78-year-old female who is here for surveillance colonoscopy secondary to a personal history of adenomatous polyps and personal history colon cancer. The examination is deemed medically necessary for colonoscopy. The patient has been seen, interviewed and examined prior to the procedure by both myself and the anesthesia provider. [facility] Disclaimer: The information contained in this section may have been updated after the patient was seen, as this information can be updated by other users. Medical History Encounter for pre-operative cardiovascular clearance Tick bite Palpitations Ear itching Decreased pedal pulses Tachyarrhythmia Headache High blood pressure Sinusitis Yeast infection History of atrial fibrillation History of myocardial infarction Hearing loss Paroxysmal A-fib Loss of balance Brittle nails Unsteady gait Bilateral tinnitus Vitamin D deficiency Hypothyroidism GERD (gastroesophageal reflux disease) Allergic rhinitis Anemia CAD (coronary artery disease) HHD (hypertensive heart disease) HLD (hyperlipidemia) Surgical History History of knee surgery History of bilateral hip replacements History of colon surgery History of cholecystectomy History of bilateral knee arthroplasty History of total hip replacement Family History Other Cancer Coronary artery disease Heart attack Hypertension Social History Smoking Status: Never smoker alcohol intake: current alcohol intake frequency: a few times a week substance use type: denies use current occupational status: retired Travel in the last 8 weeks: None household members: spouse housing: house marital status: caffeine: Yes Other Medical History Have you received the Flu Vaccine for this season: Yes Have you received the Pneumonia Vaccine: No Review of Systems Review of Systems Review of systems (narrative): Negative *Cardiovascular Comments: Negative *Gastrointestinal Comments: Negative *Genitourinary Comments: Negative *Musculoskeletal Comments: Negative *Neurologic Comments: Negative Meds Home Medications and Allergies Home Medications ?Medication ?Instructions ?Recorded ?Confirmed ?Type calcium carbonate 500 mg PO DAILY 07/24/17 03/10/24 History nitroglycerin 0.4 mg sublingual 0.4 mg sublingual Q5M PRN Chest 07/24/17 03/10/24 History tablet Pain latanoprost 0.005 % eye drops 1 drp ophthalmic (eye) DAILY 10/25/20 03/10/24 History bisoprolol fumarate 10 mg tablet 10 mg PO DAILY 03/27/23 03/10/24 History omeprazole 20 mg capsule,delayed See Rx Instructions .Route 07/18/23 03/10/24 Rx release .COMPLEX #180 caps timolol maleate 0.5 % eye drops 1 drp Eye-Right DIRECTED 07/24/23 03/10/24 History cyanocobalamin (B12)-cobamamide See Rx Instructions .Route 07/26/23 03/10/24 Rx 5,000 mcg-100 mcg sublingual tablet .COMPLEX #90 tabs levothyroxine 100 mcg tablet See Rx Instructions .Route 09/03/23 03/10/24 Rx (Synthroid) .COMPLEX #90 tabs fluticasone propionate 50 See Rx Instructions .Route 11/19/23 03/10/24 Rx mcg/actuation nasal .COMPLEX #16 grams spray,suspension diltiazem HCl 120 mg 120 mg PO DAILY #90 caps 12/11/23 03/10/24 Rx capsule,extended release 24 hr atorvastatin 40 mg tablet 40 mg PO DAILY #90 tabs 01/07/24 03/10/24 Rx vitamin E (dl, acetate) 90 mg (200 90 mg PO DAILY 02/13/24 03/10/24 History unit) capsule [id number] 140 gram-sod sulfate 9 See Rx Instructions PO .COMPLEX #3 02/28/24 03/10/24 Rx gram-NaCl 5.2gram-KCl-C oral pwdr ea packs (Plenvu) apixaban 5 mg tablet (Eliquis) 5 mg PO BID #60 tabs 03/03/24 03/10/24 Rx New Prescriptions to Start Prescriptions: Allergies Allergy/AdvReac Type Severity Reaction Status Date / Time morphine [MORPHINE] Allergy Unknown Rash Verified 03/04/24 16:36 Exam Data for Last 24 hours Vital signs and Labs for Last 24 Hours: Temp Pulse Resp BP Pulse Ox O2 Del Method 97.6 F 54 L 18 152/70 H 98 Room Air 03/10/24 07:02 03/10/24 07:02 03/10/24 07:02 03/10/24 07:02 03/10/24 07:02 03/10/24 07:02 *Routine HEENT Exam Head: Present normocephalic Eye: Present EOMI and PERRL ENT: Present mucous membranes moist *Routine Neck Exam Neck: Present supple *Routine Respiratory Exam Respiratory: Present CTA bilaterally *Routine Cardiovascular Exam Cardiovascular: Present RRR *Routine Abdominal Exam Abdominal: Present soft and normoactive bowel sounds; Absent tenderness *Routine Rectal Exam Rectal:: deferred *Routine Genitalia Exam Genitalia:: deferred *Routine Extremities Exam Extremities: Absent cyanosis, clubbing or edema *Routine Skin Exam Skin: Present warm; Absent rash *Routine Neurological Exam Neurological: Present alert and oriented X3 Assessment and Plan *Assessment and plan (1) Personal history of colon cancer: Status: Acute Category: Medical Code(s): Z85.038 - Personal history of other malignant neoplasm of large intestine (2) Personal history of adenomatous and serrated colon polyps: Status: Acute Category: Medical Code(s): Z86.0101 - Personal history of adenomatous and serrated colon polyps Plan A/P: 1. Personal history of adenomatous colon polyps and personal history of colon cancer is the preprocedural diagnosis. The patient will be anesthetized/sedated using MAC sedation. The patient has been seen and examined. Cardiac and lung assessment prior to the examination is stable. Proceed with planned colonoscopy
[2024-03-10 07:46] VITALS: O2SAT 98
--- NOTE | 2024-03-10 07:53 | HMH.PROCNOTE ---
[facility] Procedure Note Date: 03/10/24 Time: 08:14 Procedure Note:: Colonoscopy Procedure Report: Colonoscopy with cold snare polypectomy Endoscopist: Andi Bucio II, MD Referring physician: LAURENCE Figueredo Date of Procedure: March 10, 2024 Equipment: Olympus 190 variable stiffness pediatric colonoscope Sedation: MAC sedation Indication: Mrs. Saleem is an 78-year-old female with a personal history of colon cancer in 2002 before she moved to [place]. She also has a personal history of adenomatous colon polyps. Her last colonoscopy was May 2021 at which time she had 4 polyps (tubular adenomas x 3/mucosal prolapse polyp x 1) removed. The patient does have some alternating IBS and has gone back to the [facility] She reports no rectal bleeding, abdominal pain, weight loss or change in bowel habits. She reports no family history of colon cancer. Her father had colon polyps. Procedure: Prior to the procedure, a history and physical exam was performed, and patient's medications and allergies were reviewed. The risks, benefits and alternatives of the sedation and procedure were discussed with the patient. All questions were answered and informed consent was obtained. The patient was brought to the procedure room. Patient identification and proposed procedure were verified by the physician and the nurse. The patient was placed in a left lateral decubitus position and the scope was passed under direct vision. Throughout the procedure, the patient's blood pressure, pulse, and oxygen saturations were monitored continuously. The colonoscopy was accomplished without difficulty. The patient tolerated the procedure well. Findings: On digital rectal examination there was normal rectal tone. There were no external hemorrhoids. The colonoscope was introduced through the anal canal to the rectum and advanced to the cecum. The ileocecal valve and appendiceal orifice were identified. The scope was advanced a short distance into the ileum which appeared grossly normal. The scope was then withdrawn into the colon. There were 3 polyps (cecum x 1 (elongated 7 to 8 mm polyp) and transverse x 2 (4 and 5 mm)). These were all removed via cold snare polypectomy. The remaining cecum, ascending and transverse colon and mucosa were grossly normal. There were scattered diverticuli throughout the descending and sigmoid colon (LEFT colon). Within the rectum, there was an elongated fibrotic mucosal scar from prior larger rectal polypectomy. Upon retroflexion within the rectum there were 1-2 internal hemorrhoids. The preparation was excellent throughout with [place] Preparation Score of 9. The cecal time was 11 minutes. Impression: 1. Diminutive colonic polyps x 3 2. Left-sided diverticulosis 3. Grade 1-2 internal hemorrhoids Plan: I will discuss the findings with the patient and family and determine whether further preventative surveillance is warranted. I would encourage psyllium bulking fiber supplementation on a maintenance basis.
[2024-03-10 08:17] VITALS: BP 88/42; PULSE 71; RESP 16; TEMP 36.5; O2SAT 99
[2024-03-10 08:27] VITALS: BP 100/62; PULSE 74; RESP 18; O2SAT 97
[2024-03-10 08:37] VITALS: BP 110/66; PULSE 75; RESP 16; O2SAT 97
== END 2024-03-10 08:37 | disposition home or self-care (01) ==
PROVIDERS: PCP Family Medicine; Visit Provider Internal Medicine Gastroenterology
PROC: (CPT 45385; principal; 2024-03-10 08:00)
DX: Z85.038 Personal history of other malignant neoplasm of large intestine (principal); Z86.0101 Personal history of adenomatous and serrated colon polyps; K63.5 Polyp of colon; K57.30 Diverticulosis of large intestine without perforation or abscess without bleeding; K64.8 Other hemorrhoids
CPT/HCPCS: 45385; J1595; J7120

== ENCOUNTER 2024-06-12 10:40 | Outpatient (CLI) | payer MEDICARE, OTHER, SELFPAY ==
[2024-06-12 19:04] LABS: Chol/HDL Ratio 2.3 (1-3.5); Cholesterol 168 mg/dl (140-200); HDL Cholesterol 74 mg/dl (40-60); Triglycerides 114 mg/dl (30-150); VLDL Cholesterol 23 mg/dL (0-40)
[2024-06-12 19:20] LABS: Free Thyroxine Index 2.5 ug/dL (5.93-13.13); T4 (Thyroxine) 7.2 ug/dl (5.53-11.0); Triiodothryronine (T3) Uptake 35 % (23.5-40.5)
[2024-06-12 20:05] LABS: Vitamin B12 > 1000 pg/mL (239-931)
== END 2024-06-12 23:59 | disposition home or self-care (01) ==
LOC: LAB.DROPOF 06-13 14:53
PROVIDERS: PCP Family Medicine; Visit Provider Family Medicine
DX: E78.5 Hyperlipidemia, unspecified (principal); E03.9 Hypothyroidism, unspecified; Z68.27 Body mass index [BMI] 27.0-27.9, adult; E66.3 Overweight
CPT/HCPCS: 80061; 82607; 84436; 84443; 84479

== ENCOUNTER 2024-08-11 10:12 | Outpatient (CLI) | payer MEDICARE, OTHER, SELFPAY ==
[2024-08-11 11:23] LABS: Basophils % 0.7 % (0.1-2.0); Eosinophils # 0.3 K/mm3 (0.0-0.4); Eosinophils % 6.9 % (0.1-12.0); Hematocrit 34.3 % (37.0-47.0); Hemoglobin 11.1 g/dL (12.2-16.2); Lymphocytes # 1.4 K/mm3 (0.7-4.5); Lymphocytes % 32.2 % (10-50); Mean Corpuscular HGB Conc 32.4 g/dL (31.8-35.4); Mean Corpuscular Hemoglobin 32.1 pg (27.0-31.2); Mean Corpuscular Volume 99.1 fl (81-99); Mean Platelet Volume 10.7 fl (7.4-10.4); Monocytes # 0.5 K/mm3 (0.1-1.0); Monocytes % 10.9 % (1.7-9.3); Neutrophils # 2.1 K/mm3 (1.8-7.8); Neutrophils % 49.3 % (37.0-80.0); Platelet Count 98 K/mm3 (142-424); Red Blood Count 3.46 M/mm3 (4.20-5.40); Red Cell Distribution Width 13.5 % (11.5-17.5); White Blood Count 4.2 K/mm3 (4.8-10.8)
== END 2024-08-11 23:59 | disposition home or self-care (01) ==
LOC: LAB 10:14
PROVIDERS: PCP Family Medicine; Visit Provider Internal Medicine Medical Oncology
DX: D64.9 Anemia, unspecified (principal)
CPT/HCPCS: 36415; 85025

== ENCOUNTER 2024-12-30 13:33 | Outpatient (CLI) | payer MEDICARE, OTHER, SELFPAY ==
--- NOTE | 2024-12-30 13:35 | MM_ITS ---
PROCEDURE INFORMATION: Exam: MG Bilateral Screening 3D Mammography Exam date and time: 12/30/2024 1:48 PM Age: 79 years old Clinical indication: Screening examination TECHNIQUE: Imaging protocol: Bilateral Screening tomosynthesis and 2D mammography including computer-aided detection (CAD) when performed. COMPARISON: 1. MG MM DIG SCREENING MAMM BI W/CAD 12/21/2023 12:44 PM 2. MG MM DIG SCREENING MAMM BI W/CAD 12/26/2022 9:31 AM FINDINGS: MAMMOGRAPHY: Breast composition: There are scattered areas of fibroglandular density. Mass: None. Architectural distortion: None. Calcifications: No suspicious calcifications. Asymmetric density: None. Skin thickening: None. Axillary adenopathy: None. IMPRESSION: No mammographic evidence of malignancy. Annual screening is recommended unless otherwise clinically indicated. ASSESSMENT: BI-RADS Category 1: Negative.
--- OUTSIDE RECORDS SUMMARY | 2024-12-30 13:35 | XMS_ITS | Continuity of Care Document ---
Author Name [facility] Organization [facility] Care Team Providers Care Cloth Printing Inspector Name Role Phone [facility] Unavailable Unavailable Medications Combined list of outpatient medications from Department of Defense and Veterans [facility] facilities.Medications provided include 1) outpatient medications from the last 15 months, and 2) patient-reported medications. Medication Details Route Status Patient Instructions Prescription Expires Prescription Number Last Dispense Date Ordering Provider Order Date Order Qty Source LATANOPROST (LATANOPROS T), 0.005%, DROPS, OPHTHALMIC, [employer] 2.5 ml DROP BTL Active [id number] 10/23/19 2 4 2023 7.5 Pharmac y Data Transac tion Service Facilit y Immunizations Combined list of available immunizations from the Department of Defense and Veterans Affairs facilities. 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 Status Comments Source COVID-19, mRNA, LNP-S, PF, 30 mcg/0.3 mL dose 2020 TORREY [employer] [place] (PFR) Not Given COVID-19, mRNA, LNP-S, PF, 30 mcg/0.3 mL dose [facility] influenza, high-dose, quadrivalent 2020 TORREY, () Not Given influenza , high-dose , quadrival ent [facility] Influenza vaccine, quadrivalent, adjuvanted 2019 AYESHA, () Not Given Influenza vaccine, quadrival ent, adjuvante d [facility] Influenza, high dose seasonal 2015 NARENDRA AYALA () Not Given Influenza , high dose seasonal [facility] Results Combined list of recent chemistry, hematology and other laboratory results from Department of Defense and Veterans Affairs, ranging from 15 months to all on record, depending upon the facility. Order Name Results Value Reference Range Date Interpretation Specimen Comments Source QUANTIFE CHAVO TB GOLD PLUS PANEL (SRL) MYCOBACTER IUM TUBERCULOS IS STIMULATED GAMMA INTERFERON RELEASE BY CD4+ T-CELLS [UNITS/VOL UME] CORRECTED FOR BACKGROUND IN BLOOD 0.1438 [IU]/mL 06/15 Specimen Type: BLOOD Comment: A combination of epidemiolog ical, historical, medical, and diagnostic findings should be considered when interpretin g results. The interpretat ion of the result is strictly qualitative . The magnitude of the amount of measured IFN-gamma cannot be correlated to stage or degree of infection, level of immune responsiven ess, or likelihood for progression to active disease. A positive result should not be the sole or definitive basis for diagnosing tuberculosi s disease and assessing the probability of latent tuberculosi s infection (LTBI). It is possible that a positive result may be due to infection by M. kansasii, M. szulgai, or M. marinum. A negative result does not preclude the possibility of M. tuberculosi s infection or disease. Stage of infection, co-morbid conditions that affect immune functions, and other immunologic al variables may affect results. Indetermina te results are uncommon and may be related to the status of the patient's immune system or certain technical factors. Ordering Provider: WALE LÓPEZ Report Released Date/Time: Apr 23, 2023 11:58 AM Reporting Lab: [facility] [address] [id number] Performing Lab: [facility] [address] [address] [facility] QUANTIFE CHAVO TB GOLD PLUS PANEL (SRL) MYCOBACTER IUM TUBERCULOS IS STIMULATED GAMMA INTERFERON RELEASE BY CD4+ AND CD8+ T-CELLS [UNITS/VOL UME] CORRECTED FOR BACKGROUND IN BLOOD 0.1058 [IU]/mL 06/15 Specimen Type: BLOOD Comment: A combination of epidemiolog ical, historical, medical, and diagnostic findings should be considered when interpretin g results. The interpretat ion of the result is strictly qualitative . The magnitude of the amount of measured IFN-gamma cannot be correlated to stage or degree of infection, level of immune responsiven ess, or likelihood for progression to active disease. A positive result should not be the sole or definitive basis for diagnosing tuberculosi s disease and assessing the probability of latent tuberculosi s infection (LTBI). It is possible that a positive result may be due to infection by M. kansasii, M. szulgai, or M. marinum. A negative result does not preclude the possibility of M. tuberculosi s infection or disease. Stage of infection, co-morbid conditions that affect immune functions, and other immunologic al variables may affect results. Indetermina te results are uncommon and may be related to the status of the patient's immune system or certain technical factors. Ordering Provider: WALE LÓPEZ Report Released Date/Time: Apr 23, 2023 11:58 AM Reporting Lab: [address] Performing Lab: [place] [id number] [facility] QUANTIFE CHAVO TB GOLD PLUS PANEL (SRL) MITOGEN STIMULATED GAMMA INTERFERON [UNITS/VOL UME] IN BLOOD 9.9548 [IU]/mL 06/15 Specimen Type: BLOOD Comment: A combination of epidemiolog ical, historical, medical, and diagnostic findings should be considered when interpretin g results. The interpretat ion of the result is strictly qualitative . The magnitude of the amount of measured IFN-gamma cannot be correlated to stage or degree of infection, level of immune responsiven ess, or likelihood for progression to active disease. A positive result should not be the sole or definitive basis for diagnosing tuberculosi s disease and assessing the probability of latent tuberculosi s infection (LTBI). It is possible that a positive result may be due to infection by M. kansasii, M. szulgai, or M. marinum. A negative result does not preclude the possibility of M. tuberculosi s infection or disease. Stage of infection, co-morbid conditions that affect immune functions, and other immunologic al variables may affect results. Indetermina te results are uncommon and may be related to the status of the patient's immune system or certain technical factors. Ordering Provider: WALE LÓPEZ Report Released Date/Time: Apr 23, 2023 11:58 AM Reporting Lab: [place] [id number] Performing Lab: [place] [id number] [facility] QUANTIFE CHAVO TB GOLD PLUS PANEL (SRL) GAMMA INTERFERON BACKGROUND [UNITS/VOL UME] IN BLOOD BY IMMUNOASSA Y 0.0452 [IU]/mL 06/15 Specimen Type: BLOOD Comment: A combination of epidemiolog ical, historical, medical, and diagnostic findings should be considered when interpretin g results. The interpretat ion of the result is strictly qualitative . The magnitude of the amount of measured IFN-gamma cannot be correlated to stage or degree of infection, level of immune responsiven ess, or likelihood for progression to active disease. A positive result should not be the sole or definitive basis for diagnosing tuberculosi s disease and assessing the probability of latent tuberculosi s infection (LTBI). It is possible that a positive result may be due to infection by M. kansasii, M. szulgai, or M. marinum. A negative result does not preclude the possibility of M. tuberculosi s infection or disease. Stage of infection, co-morbid conditions that affect immune functions, and other immunologic al variables may affect results. Indetermina te results are uncommon and may be related to the status of the patient's immune system or certain technical factors. Ordering Provider: WALE LÓPEZ Report Released Date/Time: Apr 23, 2023 11:58 AM Reporting Lab: [id number] [id number] Performing Lab: [address] [id number] [facility] QUANTIFE CHAVO TB GOLD PLUS PANEL (SRL) QNT FINAL INTERP (SRL) Negative 06/15 Specimen Type: BLOOD Comment: A combination of epidemiolog ical, historical, medical, and diagnostic findings should be considered when interpretin g results. The interpretat ion of the result is strictly qualitative . The magnitude of the amount of measured IFN-gamma cannot be correlated to stage or degree of infection, level of immune responsiven ess, or likelihood for progression to active disease. A positive result should not be the sole or definitive basis for diagnosing tuberculosi s disease and assessing the probability of latent tuberculosi s infection (LTBI). It is possible that a positive result may be due to infection by M. kansasii, M. szulgai, or M. marinum. A negative result does not preclude the possibility of M. tuberculosi s infection or disease. Stage of infection, co-morbid conditions that affect immune functions, and other immunologic al variables may affect results. Indetermina te results are uncommon and may be related to the status of the patient's immune system or certain technical factors. Ordering Provider: WALE LÓPEZ Report Released Date/Time: Apr 23, 2023 11:58 AM Reporting Lab: [address] [id number] Performing Lab: [address] [id number] [facility] Social History Combined list of available smoking, tobacco, and other social history from Department of Defense and Veterans Affairs facilities. Social History Type Response Date Comment Sour e This section is an empty social history section. [employer]
--- OUTSIDE RECORDS SUMMARY | 2024-12-30 13:38 | XMS_ITS | Encounter Summary ---
Author Organization [employer] ([place], [place], [place], [place]) Address [address] [place] [address] Care Team Providers Care Disease Intervention Specialist Name Role Phone Unavailable Primary Care Provider Unavailabl e Encounter Details Date Type Department Care Team (Late st Contact Info) Description 06/15/2020 Transcribed Document [facility] Family [place] [facility] [place] [address] ProviderLandry [place] [address] Social History Tobacco Use Types Packs/Day Years Used Date Smoking Tobacco: Never Assessed Comments Unknown Sex and Gender Information Value Date Recorded Sex Assigned at Female 11/08/2021 7:46 PM CDT Legal Sex Female 7:46 PM CDT Gender Identity Female 11/08/2021 7:46 PM CDT Sexual Orientation Not on file documented as of this encounter Miscellaneous Notes * Cerner Conversion Note - Landry ProviderMD - 06/15/2020 8:58 AM AUTOMOTIVE SERVICE ADVISOR [facility] OR PACU Summary Primary Physician: RANDA DURAN MD-ORT Finalized Date/Time: 06/15/20 11:14:46 Pt. Name: TANESHA SALEEM/Sex: 1945 Female Med Rec #: [id number] Physician: RANDA DURAN MD-ORT Financial #: [id number] Pt. Type: O Room/Bed: Admit/Disch: 06/15/20 03:54:00 - Institution: [facility] OR PACU Case Times Entry 1 In PACU I 06/15/20 10:02:00 Ready for PACU 06/15/20 10:32:00 Discharge Discharge from PACU 06/15/20 10:56:00 I Last Modified By: CHARLES Mead 06/15/20 10:54:34 [facility] OR PACU Case Times Audit 06/15/20 10:54:34 Steam Distribution Supervisor: SAM Modifier: RAMEYLL <+> 1 Discharge from PACU I 06/15/20 10:26:53 Steam Distribution Supervisor: SAM Modifier: RAMEYLL <+> 1 Ready for PACU Discharge [facility] OR PACU Acuity Entry 1 Start Time 06/15/20 10:33:00 Stop Time 06/15/20 10:56:00 Acuity Level [facility] PACU Acuity I Last Modified By: CHARLES Mead 06/15/20 10:54:45 Finalized By: CHARLES Mead Document Signatures Signed By: CHARLES Mead 06/15/20 11:14 documented in this encounter Plan of Treatment Not on file documented as of this encounter Visit Diagnoses Not on filedocumented in this encounter
--- OUTSIDE RECORDS SUMMARY | 2024-12-30 13:38 | XMS_ITS | Encounter Summary ---
Author Organization [employer] ([place], [place], [place], [place]) Address [address] [place] [address] Care Team Providers Care Veterinary Technician Assistant Name Role Phone Unavailable Primary Care Provider Unavailabl e Encounter Details Date Type Department Care Team (Late st Contact Info) Description 06/15/2020 Transcribed Document [facility] [place] Family Medicine [facility] [place] [address] ProviderLandry MD [address] [place] [id number] Social History Tobacco Use Types Packs/Day Years Used Date Smoking Tobacco: Never Assessed Comments Unknown Sex and Gender Information Value Date Recorded Sex Assigned at Female 11/08/2021 7:46 PM CDT Legal Sex Female 7:46 PM CDT Gender Identity Female 11/08/2021 7:46 PM CDT Sexual Orientation Not on file documented as of this encounter Miscellaneous Notes * Cerner Conversion Note - Historical Provider, - 06/15/2020 10:36 AM INJECTION OPERATOR Evaluation, Physical Therapy Entered On: 06/15/2020 12:52 EST Performed On: 06/15/2020 11:32 EST by XU BOBBY, PT General Information, PT Visit Type, PT : Initial evaluation Patient Orders : Order Date Order Ordering 06/15/2020 10:36 PT Evaluation and Treatment Ordered By: JENNIE GARZA PA-C 06/15/2020 10:36 PT Treatment Instructions Ordered By: JENNIE GARZA PA-C 06/15/2020 10:36 PT Treatment Instructions Ordered By: JENNIE GARZA PA-C 06/15/2020 10:36 PT Treatment Instructions Ordered By: JENNIE GARZA PA-C 06/15/2020 10:36 PT Treatment Instructions Ordered By: JENNIE GARZA PA-C 06/15/2020 10:36 PT Treatment Instructions Ordered By: JENNIE GARZA PA-C Active Diagnoses : No Qualifying Diagnoses Therapy Diagnosis, PT : aftercare following RTHA-anterior Admission Date : 06/15/2020 03:54 Assisted by, PT : Occupational Therapist Personal Devices : Personal Devices No Devices Recorded Assistive Devices : Assistive Devices No Devices Recorded XU BOBBY, PT - 06/15/2020 12:38 EST General Status Patient Received Status : Supine in bed, Other: on stretcher in post op Treatment Start Time : 06/15/2020 11:32 EST Patient Left Status : Up in chair, RN/PCT informed, All needs met and within reach RN/PCT Informed Comment : Yes, RN approved pt for PT eval and pt agreeable Treatment End Time : 06/15/2020 12:06 EST Treatment Time : 34 Minute(s) XU BOBBY, PT - 06/15/2020 12:38 EST History and Environment Living Situation, Therapy : Home Patient Lives With : Spouse Persons Assisting Patient at Home : Spouse Professional Skilled Services : None Persons Providing Information : Patient Home Equipment Therapy, PT : Walker Walker : Walker, front wheel Home Setup : One story Stairs : Yes Stair Location(s) : Outside Outside Stairs, Number of Steps : 2 Outside Stairs Comment : Pt has a porch rail that she holds onto on the right Railing Outside : No XU BOBBY, PT - 06/15/2020 12:38 EST Prior Level of Function PT GRID Prior LOF Ambulation, Household : Independent Prior LOF Ambulation, Community : Independent Prior LOF Bed Mobility : Independent Prior LOF Toileting : Independent Prior LOF Transfer : Independent XU BOBBY, PT - 06/15/2020 12:38 EST Upper Extremity Upper Extremity Dominance : Right Right UE Active ROM : WFL Right UE Strength : WFL Left UE Active ROM : WFL Left UE Strength : WFL XU BOBBY, PT - 06/15/2020 12:38 EST Lower Extremity RLE Active ROM : Impaired Right LE Strength : Impaired LLE Active ROM : WFL Left LE Strength : WFL Lower Extremity Comment : RLE is impaired secondary to surgery. 4/5 grossly assessed XU BOBBY, PT - 06/15/2020 12:38 EST Functional Mobility Mobility Grid Supine to Sit : Supervision/set-up Sit to Stand : Rehab Minimal assistance Bed to Chair : Rehab Minimal assistance Stand to Sit : Rehab Minimal assistance XU BOBBY, PT - 06/15/2020 12:38 EST Gait Training/Assessment, PT Weight Bearing Status : As tolerated Gait Assistance Level : Assist, minimal Walking Distance : 60 feet with RWX, min assist x1, verbal cues for correct gait sequence and for reciprocal gait pattern. Slow pace but good safety awareness Ambulatory Devices : Gait belt, Walker, front wheel Gait Deviations : Yes Gait Training Comment : see above Stair(s) Ascend/Descend Training : No Stair Training Comment : Pt verbalized correct gait sequence for accessing 2 steps XU BOBBY, PT - 06/15/2020 12:38 EST Neuromuscular Reeducation, PT Balance Comment : good sitting and standing XU BOBBY, PT - 06/15/2020 12:38 EST Neurological/Sensory Overall Sensory Response : Intact Response to Pain : Intact XU BOBBY, PT - 06/15/2020 12:38 EST Activity Tolerance, PT Activity Comment : XU Gutierrez, PT - 06/15/2020 12:38 EST Cognition Assessment, PT Orientation : Oriented x 4 Attention Assessment : Present XU BOBBY, PT - 06/15/2020 12:38 EST Edu Topics Physical Therapy Education Grid Bed Mobility Training : Verbalizes understanding, Returns demonstration Gait Training : Verbalizes understanding, Returns demonstration Home Program/Exercises : Verbalizes understanding, Returns demonstration Safety : Verbalizes understanding, Returns demonstration Transfer Training : Verbalizes understanding, Returns demonstration Use of Assistive Device : Verbalizes understanding, Returns demonstration XU BOBBY, PT - 06/15/2020 12:38 EST Indication Assesessment, PT Physical Therapy Indicated : No Physical Therapy Not Indicated : Other: Pt does not require further skilled PT services in the acute care setting beyond this initial evaluation and education Interdisciplinary Consultation(s) Needed : No Potential Barriers To Therapy : None evident Rehabilitation Potential : XU Gutierrez, PT - 06/15/2020 12:38 EST Plan of Care, PT PT Tx Plan/Goals Established w Patient : No Reason Tx/Plan Not Established W/ Pt PT : Pt does not require further skilled PT services in the acute care setting beyond this initial evaluation and education PT Frequency Rehab : Other: eval only Other PT Treatment Provided This Date : gait ther act PT Duration Rehab : Other: eval PT Treatments Planned : Other: eval Plan of Care Comment, PT : see above XU BOBBY, PT - 06/15/2020 12:38 EST Treatment Note Subjective Comment : agreeable Patient's Response to Treatment : good Additional Objective Information : see eval PT assisted OT with taking pt to the bathroom and remained with pt in the bathroom to supervise pt for safety with bathroom transfers, dynamic standing balance, assistance with clothing and supervision with mobility in tight confines of pt restroom Pt issued a written HEP and PT demonstrated each of the following: Ankle pumps, quad sets, gluteal sets, hamstring sets, short and long arc quads and supine and seated heel slides. Assessment : Pt does not require further skilled PT services in the acute care setting beyond this initial evaluation and education Plan for Treatment : eval only XU BOBBY, PT - 06/15/2020 12:38 EST Pain Assessment Pain Scaled Used : 0-10 Pain scale Pain Score Pre-Intervention : 0 Pain Score Post-Intervention. : 0 XU BOBBY, PT - 06/15/2020 12:38 EST Image 1 - Images currently included in the form version of this document have not been included in the text rendition version of the form. [facility] PT Charges PT Ther Activities Ea 15 Min : 1 Gait Training Each 15 Min : 1 PT Eval Low Complexity : 1 XU BOBBY, PT - 06/15/2020 12:38 EST documented in this encounter Plan of Treatment Not on file documented as of this encounter Visit Diagnoses Not on filedocumented in this encounter
--- OUTSIDE RECORDS SUMMARY | 2024-12-30 13:38 | XMS_ITS | Encounter Summary ---
Author Organization [employer] ([place], [place], [place], [place]) Address [address] [place] [address] Care Team Providers Care Cadd Operator Name Role Phone Unavailable Primary Care Provider Unavailabl e Encounter Details Date Type Department Care Team (Late st Contact Info) Description 06/15/2020 Transcribed Document [facility] [place] Family Medicine [facility] [place] [address] ProviderLandry MD [facility] [place] [address] Social History Tobacco Use Types [...] Conversion Note - Landry ProviderMD - 06/15/2020 12:32 PM CORDWOOD CUTTER HELPER [place] [id number] TANESHA SALEEM :1945 Visit Time:06/15/2020 What to do next Your Diagnosis Unilateral primary osteoarthritis, right hip, Unilateral primary osteoarthritis, right hip Instructions From Your Care Team [facility] for outpatient PT. Call and schedule an appointment in 2 weeks. Discharge Activity: Discharge Activity: Activity as tolerated Diet: Discharge Diet: Resume usual diet as tolerated Follow-Up Appointments Follow Up with SERGIO TROY When 07/27/2020 10:00 AM EDT Where: [address] [facility] [address] FLO[address] [place] [id number]- [facility] (1) Medications What How Much When Instructions Next Dose aspirin (aspirin 81 mg oral delayed release tablet) 1 Tablet(s) Oral Two Times A Day Duration: 45 Day(s) acetaminophen (acetaminophen 500 mg oral tablet) 2 Tablet(s) Oral Three Times A Day Duration: 30 Day(s) atorvastatin (atorvastatin 40 mg oral tablet) 1 Tablet(s) Oral Every Day bisoprolol (bisoprolol 10 mg oral tablet) 1 Tablet(s) Oral Every Day calcium-vitamin D (Calcium 600+D) 1 Tablet(s) Oral Every Day chondroitin/ glucosamine/ methylsulfonylmethane (Glucosamine & Chondroitin with MSM) 1 Tablet(s) Oral Two Times A Day Triple Strength docusate (docusate sodium 100 mg oral tablet) 1 Tablet(s) Oral Two Times A Day as needed for for constipation gabapentin (gabapentin 300 mg oral capsule) 1 Capsule(s) Oral Once a day (at bedtime) levothyroxine (Synthroid 137 mcg (0.137 mg) oral tablet) 1 Tablet(s) Oral Every Day lisinopril (lisinopril 10 mg oral tablet) 1 Tablet(s) Oral Two Times A Day magnesium oxide 500 Milligram(s) Oral Every Day omeprazole 20 Milligram(s) Oral Two Times A Day oxyCODONE (oxyCODONE 5 mg oral capsule) 2 Capsule(s) Oral Every 4 Hours as needed for as needed for pain 1-2 tab q4-6hrs as needed for severe pain traMADol (traMADol 50 mg oral tablet) 2 Tablet(s) Oral Every 6 Hours 1-2 tab q6h as needed for moderate pain Take your medications faithfully. Do NOT skip medication. Do NOT stop taking medications without the direction of a physician. Carry a list of your medications with you at all times, and take this medication list with you to your first follow up visit. Report any side effects. Avoid herbal remedies unless discussed with your physician. As part of your treatment plan, your physician may have prescribed a limited course of a controlled substance. This medication may be given to help people with moderate or severe pain or for other medical conditions, but there are risks involved with treatment. Common side effects may include nausea, constipation, drowsiness, sweating, itching, dry mouth, and rash. More serious side effects may include cognitive and motor impairment, like problems with thinking, concentrating, alertness, and movement (e.g. slowed reflexes), and driving and operating heavy machinery can be dangerous. It is important for you to talk to your physician if you have these side effects or questions. These controlled substances can produce physical dependence and be habit-forming if taken for an extended period of time, which means that the body has gotten used to them and may experience withdrawal symptoms if they are abruptly stopped. Withdrawal symptoms can include runny nose, sweating, goose bumps, diarrhea, abdominal cramping, rapid heartbeat, difficulty sleeping, and nervousness. Please dispose of unused and medications per pharmacy guidance. Education Materials Dr. Coyle???s ATHA Adhere to all weight bearing restrictions. Use a scale daily to help familiarize what the weight bearing restriction feels like. (Example: 25lb weight bearing restriction on affected extremity). Strictly use walker for 2 week to decrease the risk of post op femur fracture(Unless instructed to use for 6 weeks). Elevate the affected knee and the entire lower extremity on 2 or 3 pillows at night for the first 6-8 weeks after surgery in order to help combat swelling. May shower on the 3rd day after surgery. Use Sparrow Press [employer] Seal for showering. Incision area must remain completely dry for 14 days. The current dressing may be removed on the 7th day after surgery and remain uncovered if it???s completely dry. May progress from a walker, to crutches, to a cane, to no support at the discretion of the therapist after 2 weeks. Do not progress to the next level until you are walking without a limp at the previous level. Take your blood thinning medication as directed. Prescribed postoperative pain medications should be weaned as tolerated, beginning 72 hours after surgery. Discontinue the 12 hour medications first. Try to be off all narcotics by 14 days after surgery. General Anesthesia, Adult, Care After This sheet gives you information about how to care for yourself after your procedure. Your health care provider may also give you more specific instructions. If you have problems or questions, contact your health care provider. What can I expect after the procedure? After the procedure, the following side effects are common: ??? Pain or discomfort at the IV site. ??? Nausea. ??? Vomiting. ??? Sore throat. ??? Trouble concentrating. ??? Feeling cold or chills. ??? Weak or tired. ??? Sleepiness and fatigue. ??? Soreness and body aches. These side effects can affect parts of the body that were not involved in surgery. Follow these instructions at home: For at least 24 hours after the procedure: ??? Have a responsible adult stay with you. It is important to have someone help care for you until you are awake and alert. ??? Rest as needed. ??? Do not: ? Participate in activities in which you could fall or become injured. ? Drive. ? Use heavy machinery. ? Drink alcohol. ? Take sleeping pills or medicines that cause drowsiness. ? Make important decisions or sign legal documents. ? Take care of children on your own. Eating and drinking ??? Follow any instructions from your health care provider about eating or drinking restrictions. ??? When you feel hungry, start by eating small amounts of foods that are soft and easy to digest (bland), such as toast. Gradually return to your regular diet. ??? Drink enough fluid to keep your urine pale yellow. ??? If you vomit, rehydrate by drinking water, juice, or clear broth. General instructions ??? If you have sleep apnea, surgery and certain medicines can increase your risk for breathing problems. Follow instructions from your health care provider about wearing your sleep device: ? Anytime you are sleeping, including during daytime naps. ? While taking prescription pain medicines, sleeping medicines, or medicines that make you drowsy. ??? Return to your normal activities as told by your health care provider. Ask your health care provider what activities are safe for you. ??? Take azoe-oig-tiztycc and prescription medicines only as told by your health care provider. ??? If you smoke, do not smoke without supervision. ??? Keep all follow-up visits as told by your health care provider. This is important. Contact a health care provider if: ??? You have nausea or vomiting that does not get better with medicine. ??? You cannot eat or drink without vomiting. ??? You have pain that does not get better with medicine. ??? You are unable to pass urine. ??? You develop a skin rash. ??? You have a fever. ??? You have redness around your IV site that gets worse. Get help right away if: ??? You have difficulty breathing. ??? You have chest pain. ??? You have blood in your urine or stool, or you vomit blood. Summary ??? After the procedure, it is common to have a sore throat or nausea. It is also common to feel tired. ??? Have a responsible adult stay with you for the first 24 hours after general anesthesia. It is important to have someone help care for you until you are awake and alert. ??? When you feel hungry, start by eating small amounts of foods that are soft and easy to digest (bland), such as toast. Gradually return to your regular diet. ??? Drink enough fluid to keep your urine pale yellow. ??? Return to your normal activities as told by your health care provider. Ask your health care provider what activities are safe for you. This information is not intended to replace advice given to you by your health care provider. Make sure you discuss any questions you have with your health care provider. Document Released: 08/06/2001 Document Revised: 05/03/2018 Document Reviewed: 12/14/2017 [employer] Patient Education ?? 2020 [employer]. Emergency Awareness and Preventative Care STROKE is an EMERGENCY Every Minute Counts Act FAST and Check for these signs: FACE Does the face look uneven? ARM Does one arm drift down? SPEECH Does their speech sound strange? TIME Call at any sign of stroke Stroke Risk Factors Atrial Fibrillation (irregular heartbeat) Diabetes Family history of stroke Heart Disease Heavy alcohol use High Blood Pressure High Cholesterol Physical inactivity and obesity Smoking Cigarette Smoking The facts are clear, cigarette smoking will shorten your life. Smoking can cause many illnesses along the way. As a healthcare provider, we recommend that you stop smoking. Assistance with quitting is available by contacting 9-995-EXYSNOW. This is a free resource providing counseling, support, and referral. Or you may contact your personal physician. National Suicide Prevention Lifeline: The National Suicide Prevention Lifeline is a national network of local crisis centers that provides free and confidential emotional support to people in suicidal crisis or emotional distress 24 hours a day, 7 days a week. Don't Wait! Stop a Heart Attack Before it Starts What is a heart attack? A heart attack is damage or to a part of the heart from severely decreased or lack of blood flow to the heart. Over time, arteries can become narrow from the buildup of fat and cholesterol, which is called plaque. The plaque can rupture causing a blood clot to form. When the blood clot forms, the artery can become severely narrowed or completely blocked, causing a heart attack. Heart attack is the leading cause of in the [place]. 85% of muscle damage occurs within the first 2 hours. Delay in the recognition of heart attack symptoms increases the chances of . Know the early symptoms of a heart attack: Nausea Feeling of fullness in chest Jaw Pain Pain that travels down one or both arms Fatigue/being tired Anxiety Back Pain Chest pressure, squeezing, or discomfort Shortness of breath Sweating, or a cold sweat Feeling of impending doom There are unusual signs of a heart attack, too! Women, the elderly, and diabetics may present with atypical symptoms: Fainting/dizziness Weakness Confusion Risk Factors for a Heart Attack Some heart disease risk factors, such as age and family history, cannot be changed. Others, like smoking and lack of exercise, can be changed. Smoking High Cholesterol High Blood Pressure Family History Obesity Age Gender (Males are at higher risk) Lack of Exercise Diabetes Diet Stress Excessive Alcohol Intake If you or someone you know is experiencing the signs and symptoms of a heart attack, DON???T DELAY. Call immediately and seek help. If someone collapses, perform CPR! Do not attempt to drive if you are having symptoms of heart attack. Hands-Only CPR Why Hands-Only CPR? Hands-Only CPR has been shown to be as effective as conventional CPR for cardiac arrests that occur outside of a hospital. Survival depends on immediately receiving CPR from someone nearby. How do you perform Hands-Only CPR? There are two easy steps: Call if you see a teen or adult collapse Push hard and fast in the center of the chest at a beat of 100 beats per minute. Save a life! 4 WAYS TO GET AHEAD OF SEPSIS SEPSIS is a MEDICAL EMERGENCY. Time matters! Infections put you and your family at risk for a life-threatening condition called sepsis. Sepsis is the body's extreme response to an infection. It is life-threatening, and without timely treatment, sepsis can rapidly lead to tissue damage, organ failure, and . Sepsis happens when an infection you already have-in your skin, lungs, urinary tract or somewhere else-triggers a chain reaction throughout your body. 1 PREVENT INFECTIONS Take good care of chronic conditions. Talk to your doctor about getting the recommended vaccines. 2 PRACTICE GOOD HYGIENE Wash your hands frequently. Keep cuts or open sores clean and covered until they are healed. 3 KNOW THE SYMPTOMS Confusion or disorientation Shortness of breath High heart rate Fever, shivering, or feeling very cold Extreme pain or discomfort Clammy or sweaty skin 4 ACT FAST Get medical care IMMEDIATELY if you suspect sepsis or if you have an infection that is not getting better or is getting worse. To learn more about sepsis and how to prevent infections, visit www.cdc.gov/sepsis. Test Results Laboratory or Other Results This Visit (last charted value for your 06/15/2020 visit) Microbiology 06/11/2020 11:15 AM SARS-CoV-2 (COVID19 PCR): Negative Blood Bank 06/15/2020 7:23 AM ABO/Rh Repeat: B POS 06/15/2020 7:20 AM ABO/Rh: B POS Antibody Screen (Tube): Negative [facility]SC General Chemistry 06/01/2020 10:01 AM Fructosamine: 217 Protein & Immunoglobulin Studies 06/01/2020 10:01 AM Prealbumin: 30.1 mg/dL -- Normal range between ( 20.0 and 40.0 ) Patient Name:TANESHA SALEEM I have received this information and was given the opportunity to ask questions. Patient/Spares Scheduler Name: Patient/Spares Scheduler Signature: Relationship to Patient: Clinician/Hospital Spares Scheduler Signature: Date: documented in this encounter Plan of Treatment Not on file documented as of this encounter Visit Diagnoses Not on filedocumented in this encounter
--- OUTSIDE RECORDS SUMMARY | 2024-12-30 13:38 | XMS_ITS | Encounter Summary ---
Author Organization [employer] ([place], [place], [place], [place]) Address [address] [place] [address] Care Team Providers Care Driver'S License Examiner Name Role Phone Unavailable Primary Care Provider Unavailabl e Encounter Details Date Type Department Care Team (Late st Contact Info) Description 06/14/2020 Transcribed Document [facility] [place] [facility] [place] [address] ProviderLandry MD [facility] [place] [address] Social History Tobacco Use Types Packs/Day Years Used Date Smoking Tobacco: Never Assessed Comments Unknown Sex and Gender Information Value Date Recorded Sex Assigned at Female 11/08/2021 7:46 PM CDT Legal Sex Female 7:46 PM CDT Gender Identity Female 11/08/2021 7:46 PM CDT Sexual Orientation Not on file documented as of this encounter Miscellaneous Notes * Cerner Conversion Note - Historical ProviderMD - 06/14/2020 2:47 PM PROGRAM SERVICES ASSISTANT Patient: TANESHA SALEEM Age: 75 Years Sex: Female : 1945 Discharge Disposition Ortho Discharge Summary Addendum Discharge: Home Procedure: Right ATHA Complications: None DVT Prophylaxis: Aspirin 81 mg tabs, 1 BID for 45 days. Script written, on chart WB Status: WBAT F/U in clinic 6 weeks Additional Instructions: Must walk with walker for 1st 2 weeks post op to decrease risk of post op femur fracture. Discharge Instructions: 1)Elevate the affected knee and the entire lower extremity on 2 or 3 pillows while sleeping at night for the first 6-8 weeks after surgery in order to help combat swelling in the lower extremities. 2) The patient may shower on the 3rd day after surgery but must keep the wound or dressing completely dry until 10 days postoperatively using glad press and seal. 3)The current dressing may be removed on the 7th day after surgery and the incision may remain uncovered if it is completely dry. 4) Call for wound drainage or excessive redness that is present beyond 10 days after surgery. 5) The patient may progress from a walker to crutches to a cane to no support at the discretion of the therapist after 2 weeks. The patient should not progress to the next level until they are walking without a limp at the previous level. 6) Postoperative pain control should be weaned as the patient can tolerate. 7) Place pillow under operative thigh to keep hip flexed while sleeping. 8) The patient will be on blood thinner after surgery, ECASA 81 mg po BID. This blood thinner should be used for 45 days. It may be stopped at the discretion of the surgeon if wound problems develop. Bilateral ROHINI hose are to be worn daily for DVT prophylaxis. You may remove these for daily skin inspections, but otherwise these are to be worn at all times. Do not start or stop anticoagulation without discussing with Dr. Coyle first Discharge Medications atorvastatin 40 mg oral tablet 40 mg = 1 Tab, Oral, Daily B complex 1 Tab, Oral, Daily bisoprolol 10 mg oral tablet 10 mg = 1 Tab, Oral, Daily Calcium 600+D 1 Tab, Oral, Daily Glucosamine & Chondroitin with MSM 1 Tab, Oral, BID lisinopril 10 mg oral tablet 10 mg = 1 Tab, Oral, BID magnesium oxide 500 mg, Oral, Daily nitroglycerin , SubLINgual, Q5Min omeprazole 20 mg, Oral, BID formula w/folic acid 1 Tab, Oral, Daily Synthroid 137 mcg (0.137 mg) oral tablet 137 mcg = 1 Tab, Oral, Daily vitamin B 1 Tab, Oral, Daily vitaminD2 1.25 mg, Weekly ASA 81 mg Tabs, 1 PO BID Neurontin 300 mg Tabs, 1qhs Tramadol 50mg tabs, 1-2mg PO q6h PRN Oxycodone 5 mg tabs, 1-2 q4-6h PRN Tylenol 1000mg TID documented in this encounter Plan of Treatment Not on file documented as of this encounter Visit Diagnoses Not on filedocumented in this encounter
--- OUTSIDE RECORDS SUMMARY | 2024-12-30 13:38 | XMS_ITS | Encounter Summary ---
Author Organization [employer] ([place], [place], [place], [place]) Address [address] [place] [address] Care Team Providers Care Director Of Slot Operations Name Role Phone Unavailable Primary Care Provider Unavailabl e Encounter Details Date Type Department Care Team (Late st Contact Info) Description 06/15/2020 Transcribed Document [facility] [place] [facility] [place] [address] ProviderLandry MD [facility] [place] [address] Social History Tobacco Use Types [...] - Landry ProviderMD - 06/15/2020 8:58 AM CDL DRIVER [facility] Main OR PreOp Summary Primary Physician: RANDA DURAN MD-ORT Finalized Date/Time: 06/15/20 09:57:11 Pt. Name: TANESHA SALEEM D.O.B./Sex: 1945 Female Med Rec #: [id number] Physician: RANDA DURAN MD-ORT Financial #: [id number] Pt. Type: O Room/Bed: Admit/Disch: 06/15/20 03:54:00 - Institution: [facility] PreOp Case Times Entry 1 In Preop 06/15/20 06:15:00 Ready for Holding 06/15/20 07:30:00 Room Patient Ready for 06/15/20 07:44:00 Surgery Patient Out of Preop 06/15/20 08:22:00 Patient Out of n/a Holding Room Last Modified By: LUIS EDUARDO BETHEA RN 06/15/20 09:57:02 SJMiko PreOp Case Times Audit 06/15/20 09:57:02 Tunneling Machine Operator: CHAYO Modifier: ABEL <+> 1 Patient Out of Preop Finalized By: LUIS EDUARDO BETHEA, RN Document Signatures Signed By: LUIS EDUARDO BETHEA RN 06/15/20 09:57 Electronically signed by [employer] [facility] Conversion Lou[place] Door Assembler Cerner at 08/27/2022 11:26 PM CDT documented in this encounter Plan of Treatment Not on file documented as of this encounter Visit Diagnoses Not on filedocumented in this encounter
--- OUTSIDE RECORDS SUMMARY | 2024-12-30 13:38 | XMS_ITS | Encounter Summary ---
Author Organization [employer] ([place], [place], [place], [place]) Address [address] [place] [address] Care Team Providers Care Public Address Systems Mechanic Name Role Phone Unavailable Primary Care Provider Unavailabl e Encounter Details Date Type Department Care Team (Late st Contact Info) Description 06/15/2020 Transcribed Document [facility] [place] Family Medicine [facility] [place] [address] ProviderLandry MD [facility] [place] [address] Social History Tobacco Use Types [...] Conversion Note - Landry ProviderMD - 06/15/2020 11:39 AM NUTRITION SERVICES MANAGER Initial Discharge Planning Entered On: 06/15/2020 12:46 EST Performed On: 06/15/2020 11:39 EST by MARIAELENA CANNON RN Initial Assessment I Previously Documented Living Environment : No qualifying data available. Living Situation : Home Patient Lives With : Spouse Is the Patient a Caregiver at Home? : No Emergency Contact #1 : Blaze Saleem Emergency Contact #1 Emergency Contact #1 Relationship : spouse Emergency Contact #2 : . Emergency Contact #2 Phone Number : . Emergency Contact #2 Relationship : . Enter Doctors Name : Jeffrey Mendozaey Does Patient have PCP Listed? : Yes Legal Guardian : No MARIAELENA CANNON RN - 06/15/2020 11:39 EST Initial Assessment II Sensory and Motor Deficits : Other: hx RTKA, LTKA AND LATH Current Home Treatments and Equipment : Walker Does the Patient have a Floor to SNF Benefit? : No MARIAELENA CANNON RN - 06/15/2020 11:39 EST Discharge Needs I Anticipated Discharge Date : 06/15/2020 EST Anticipated Discharge To, CM : Home with home health Current Home Treatment/Equipment : Current Home Treatment/Equipment No qualifying data available. Post Acute/Home Treatments : Walker Documentation Status Complete : Yes MARIAELENA CANNON RN - 06/15/2020 11:39 EST Discharge Needs II Professional Skilled Services : Professional Skilled Services No qualifying data available. Services and Community Resources : Home Health Needs Assistance with Transportation : No Discharge Options Discussed with Patient : Discharge transportation, DME, Home Health MARIAELENA CANNON RN - 06/15/2020 11:39 EST Narrative Note Narrative Note : 75 Y/O female s/p RATH per Dr. Coyle. Met with patient at bedside to discuss discharge needs. Patient is a Fast track and should be discharging home from postop. STATUS: Patient lives with Blaze and is iADLS PLAN: patient is using [facility] for HH and [facility]. Referrals faxed and Inez at [facility] and Amanda at [facility] notified of referrals. Patient going home on Asa for DVT Prophaylaxis. DME: Patient has a front rolling walker but carmen needing a bsc. States her bathroom is close to the bed. CM: No further CM needs identified. DOC: signed and placed in chart RRS: low TRANS: family will transport patient home. MARIAELENA CANNON RN - 06/15/2020 11:39 EST Electronically signed by [employer] Conversion Pattern Scratcher Cerner at 08/27/2022 11:20 PM CDT documented in this encounter Plan of Treatment Not on file documented as of this encounter Visit Diagnoses Not on filedocumented in this encounter
--- OUTSIDE RECORDS SUMMARY | 2024-12-30 13:38 | XMS_ITS | Encounter Summary ---
Author Organization [employer] ([place], [place], [place], [place]) Address [address] [place] [address] Care Team Providers Care Railway Signal Technician Name Role Phone Unavailable Primary Care Provider Unavailabl e Encounter Details Date Type Department Care Team (Late st Contact Info) Description 06/15/2020 Transcribed Document [facility] Family Medicine [facility] [place] [address] ProviderLandry MD [facility] [place] [address] Social History Tobacco Use Types [...] Conversion Note - Landry ProviderMD - 06/15/2020 11:22 AM HOME HEALTH LPN Patient: TANESHA SALEEM Age: 75 years Sex: Female : 1945 Associated Diagnoses: None Author: KG KEITH MD-INT Date of admission 06/15/2020 11: 03 AM Date of consult 07/03/2020 PCP Jeffrey Schuster MD [facility]opedic [facility], internal medicine, Kg Keith MD Reason for the consult, postoperative medical management Surgery See operative report dictated by Dr. Elliott Admitting diagnosis 1???unilateral primary osteoarthritis right hip 2???s/p R DANIELA through anterior approach 3???right hip pain 4???CAD s/p MD 5???HTN 6???HLP 7???hypothyroidism 8???GERD 9???at risk for LISETH History of present illness A pleasant 75 years old white female with a history of CAD, HTN, HLP, hypothyroidism, GERD, LISETH, in addition to right knee pain from osteoarthritis who is after medical clearance by her PCP she underwent right total hip arthroplasty through anterior approach by Dr. Coyle. Patient had surgery and is recovering well is awake alert cooperative responsive under no acute distress and is answering questions appropriately. Currently patient is on femoral nerve block in addition to oral pain medications as per Dr. Coyle recommendations and the pain is well controlled. Patient is on DVT prophylaxis as per Dr. Coyle protocol. Patient did not urinated yet. Patient is on scheduled bowel regimen. Patient did not started on oral nutrition yet. Patient denies any chest pain, shortness of breath, diaphoresis nausea or vomiting. PT/OT on board. Review of Systems Constitutional: No fever, No chills. Eye: No visual disturbances. Ear/Nose/Mouth/Throat: No nasal congestion, No sore throat. Respiratory: No shortness of breath, No cough. Cardiovascular: No chest pain, No tachycardia. Gastrointestinal: No nausea, No vomiting, No abdominal pain. Genitourinary: No change in urine stream. Hematology/Lymphatics: No bleeding tendency. Endocrine: No polyuria, No cold intolerance, No heat intolerance. Immunologic: Negative. Musculoskeletal: Negative. Integumentary: No rash, No pruritus. Neurologic: No confusion, No numbness, No tingling, No headache. Psychiatric: No anxiety, No depression. All other systems are negative Health Status Allergies: Allergies (1) Active Reaction morphine Itching Current medications: Home Medications (14) Active acetaminophen 500 mg oral tablet 1,000 mg = 2 Tab, Oral, TID aspirin 81 mg oral delayed release tablet 81 mg = 1 Tab, Oral, BID atorvastatin 40 mg oral tablet 40 mg = 1 Tab, Oral, Daily bisoprolol 10 mg oral tablet 10 mg = 1 Tab, Oral, Daily Calcium 600+D 1 Tab, Oral, Daily docusate sodium 100 mg oral tablet 100 mg = 1 Tab, PRN, Oral, BID gabapentin 300 mg oral capsule 300 mg = 1 Cap, Oral, Once a day (at bedtime) Glucosamine & Chondroitin with MSM 1 Tab, Oral, BID lisinopril 10 mg oral tablet 10 mg = 1 Tab, Oral, BID magnesium oxide 500 mg, Oral, Daily omeprazole 20 mg, Oral, BID oxyCODONE 5 mg oral capsule 10 mg = 2 Cap, PRN, Oral, Q4H Synthroid 137 mcg (0.137 mg) oral tablet 137 mcg = 1 Tab, Oral, Daily traMADol 50 mg oral tablet 100 mg = 2 Tab, Oral, Q6H , Medications (52) Active Scheduled: (16) acetaminophen 500 mg tab 1,000 mg 2 Tab, Oral, Q8H aspirin EC 81 mg tab 81 mg 1 Tab, Oral, BID atorvastatin 20 mg tab 40 mg 2 Tab, Oral, Daily bisoprolol 5 mg tab 10 mg 2 Tab, Oral, Daily calcium-vitamin D 1 Tab, Oral, Daily cloNIDine 80 mcg + ketorolac 30 mg + ropivacaine 0.5% 25 mL + lidocaine 1% 23 mL + EPINEPHrine 0.23 80 mcg 0.8 mL, IntraLesional, 1-Time docusate sodium 100 mg cap 100 mg 1 Cap, Oral, BID famotidine 20 mg/2 mL inj 20 mg 2 mL, IV Push, 1-Time levothyroxine 137 mcg, Oral, Daily lisinopril 10 mg tab 10 mg 1 Tab, Oral, BID magnesium oxide 500 mg, Oral, Daily multiple vitamin (Thera) tab 1 Tab, Oral, Daily pantoprazole EC 40 mg tab 40 mg 1 Tab, Oral, Daily pantoprazole EC 40 mg tab 40 mg 1 Tab, Oral, BID senna/docusate 8.6/50 mg tab 2 Tab, Oral, At Bedtime tranexamic acid 1,000 mg + syringe 1 Each + NaCl 0.9% 20 mL 1,000 mg 10 mL, Topical, 1-Time Continuous: (4) NaCl 0.9% 1,000 mL 1,000 mL, IntraVENous, 100 mL/Hr NaCl 0.9% 1,000 mL 1,000 mL, IntraVENous, 50 mL/Hr NaCl 0.9% 500 mL 500 mL, IntraVENous, 20 mL/Hr Normosol-R 1,000 mL 1,000 mL, IntraVENous, 100 mL/Hr PRN: (32) acetaminophen/oxyCODONE 325/5 mg tab 1 Tab, Oral, 1-Time al hydrox/mag hydrox/simeth 30 mL liq 30 mL, Oral, Q6H albuterol-ipratropium inh 3 mL 3 mL, Nebulized Inhalation, Q4H bisacodyl 10 mg supp 10 mg 1 Supp, Rectal, 1-Time bisacodyl 10 mg supp 10 mg 1 Supp, Rectal, Daily diphenhydrAMINE 25 mg tab 25 mg 1 Tab, Oral, Q4H diphenhydrAMINE 25 mg tab 12.5 mg 0.5 Tab, Oral, At Bedtime diphenhydrAMINE 25 mg tab 25 mg 1 Tab, Oral, On-CALL docusate calcium 240 mg cap 240 mg 1 Cap, Oral, Daily famotidine 20 mg tab 20 mg 1 Tab, Oral, PREOP fentaNYL 100 mcg/2 mL inj 25 mcg 0.5 mL, IV Push, Q5Min fentaNYL 100 mcg/2 mL inj 50 mcg 1 mL, IV Push, Q5Min fentaNYL 100 mcg/2 mL inj 50 mcg 1 mL, IV Push, Q10Min haloperidol 5 mg/1 mL inj 1 mg 0.2 mL, IV Push, 1-Time HYDROmorphone 1 mg/1 mL inj 0.5 mg 0.5 mL, IV Push, Q10Min magnesium hydroxide 8% liq 30 mL 15 mL, Oral, Q6H metaxalone 800 mg tab 800 mg 1 Tab, Oral, TID midazolam 1 mg/1 mL inj 2 mL 2 mg 2 mL, IV Push, Q10Min naloxone 0.4 mg/1 mL inj 0.1 mg 0.25 mL, IV Push, Q5Min ondansetron 4 mg/2 mL inj 4 mg 2 mL, IV Push, Q6H ondansetron 4 mg/2 mL inj 4 mg 2 mL, IV Push, Q8H ondansetron 4 mg/2 mL inj 4 mg 2 mL, IV Push, 1-Time ondansetron 4 mg/2 mL inj 4 mg 2 mL, IV Push, PREOP ondansetron 4 mg/2 mL inj 4 mg 2 mL, IV Push, Q4H oxyCODONE 5 mg tab 5 mg 1 Tab, Oral, Q4H oxyCODONE 5 mg tab 10 mg 2 Tab, Oral, Q4H phenol 1.4% throat spray 5 Dawson, Oral, Q2H promethazine 25 mg tab 12.5 mg 0.5 Tab, Oral, Q6H promethazine 25 mg/1 mL inj 12.5 mg 0.5 mL, IV Push, Q6H senna 8.6 mg tab 8.6 mg 1 Tab, Oral, At Bedtime traMADol 50 mg tab 50 mg 1 Tab, Oral, QID traZODone 50 mg tab 50 mg 1 Tab, Oral, At Bedtime Problem list: Active Problems (10) Acid reflux Arthritis At risk for sleep apnea Cataracts, bilateral Colon polyps Diarrhea Hay fever Hot flashes Hypothyroid MD, old Histories Family History: Family history is significant for HTN, CAD and cancer Procedure history: . truma to left knee repair - no ACL in that knee. colon polpys removed. left hip replacement. open denise. LTKA. RTKA. heart cath no stint. Social History Patient is and has 1 son, there is no history of smoking but she drinks wine. Physical Examination VS/Measurements Vital Signs/Vital Measures 06/15/2020 10:56 EST Systolic Blood Pressure 115 mmHg Diastolic Blood Pressure 56 mmHg LOW Temperature Source Temporal artery scanning Temperature Mode Fahrenheit Temperature, Fahrenheit 96.9 Deg F Clinical Temperature, C 36.1 Deg C Heart Rate Monitored 78 bpm Oxygen Saturation 98 % Oxygen Therapy Mode Room air 06/15/2020 10:30 EST Systolic Blood Pressure 104 mmHg Diastolic Blood Pressure 60 mmHg Mean Arterial Pressure (MAP)-BMDI 77 Heart Rate Monitored 70 bpm Oxygen Saturation 94 % 06/15/2020 10:25 EST Systolic Blood Pressure 98 mmHg Diastolic Blood Pressure 57 mmHg LOW Mean Arterial Pressure (MAP)-BMDI 74 Heart Rate Monitored 72 bpm Oxygen Saturation 96 % 06/15/2020 10:20 EST Systolic Blood Pressure 99 mmHg Diastolic Blood Pressure 58 mmHg LOW Mean Arterial Pressure (MAP)-BMDI 68 Heart Rate Monitored 72 bpm Oxygen Saturation 94 % 06/15/2020 10:15 EST Systolic Blood Pressure 95 mmHg Diastolic Blood Pressure 49 mmHg LOW Mean Arterial Pressure (MAP)-BMDI 70 Heart Rate Monitored 75 bpm Oxygen Saturation 94 % 06/15/2020 10:10 EST Systolic Blood Pressure 96 mmHg Diastolic Blood Pressure 52 mmHg LOW Mean Arterial Pressure (MAP)-BMDI 68 Heart Rate Monitored 76 bpm Oxygen Saturation 95 % Oxygen Therapy Mode Room air 06/15/2020 10:05 EST Systolic Blood Pressure 96 mmHg Diastolic Blood Pressure 52 mmHg LOW Mean Arterial Pressure (MAP)-BMDI 68 Heart Rate Monitored 82 bpm Oxygen Saturation 94 % 06/15/2020 10:03 EST Systolic Blood Pressure 106 mmHg Diastolic Blood Pressure 60 mmHg Mean Arterial Pressure (MAP)-BMDI 77 Temperature Source Temporal artery scanning Temperature Mode Fahrenheit Temperature, Fahrenheit 97.0 Deg F Clinical Temperature, C 36.1 Deg C Heart Rate Monitored 84 bpm Oxygen Saturation 90 % LOW Oxygen Therapy Mode Nasal cannula Oxygen Flow Rate 2 Liter/Min 06/15/2020 7:24 EST Systolic Blood Pressure 131 mmHg Diastolic Blood Pressure 79 mmHg Temperature Source Oral Temperature Mode Fahrenheit Temperature, Fahrenheit 96.9 Deg F Clinical Temperature, C 36.1 Deg C Pulse Method Non-Invasive BP Device Pulse Source Radial, Right Pulse Rhythm Regular Peripheral Pulse Rate 71 bpm Respiratory Rate 16 Breaths/Min Oxygen Saturation 96 % Oxygen Therapy Mode Room air Oxygen Therapy Mode Room air General: Alert and oriented, No acute distress. Eye: Pupils are equal, round and reactive to light, Normal conjunctiva, Vision unchanged. HENT: Normocephalic, Tympanic membranes are clear, Normal hearing, Oral mucosa is moist, No pharyngeal erythema, No sinus tenderness. Neck: Supple, Non-tender, No carotid bruit, No jugular venous distention, No lymphadenopathy, No thyromegaly. Respiratory: Lungs are clear to auscultation, Respirations are non-labored, Breath sounds are equal, Symmetrical chest wall expansion, No chest wall tenderness. Cardiovascular: Normal rate, Regular rhythm, No murmur, No gallop, Good pulses equal in all extremities, Normal peripheral perfusion, No edema. Gastrointestinal: Soft, Non-tender, Non-distended, Normal bowel sounds, No organomegaly. Genitourinary: No costovertebral angle tenderness, No inguinal tenderness, No urethral discharge, No lesions. Lymphatics: No lymphadenopathy neck, axilla, groin. Musculoskeletal: Normal range of motion, Normal strength, No tenderness, No swelling, No deformity, Normal gait. Integumentary: Warm, [place], Intact, No pallor, No rash, WOUND STABLE. Neurologic: Alert, Oriented, Normal sensory, Normal motor function, No focal deficits, Cranial Nerves II-XII are grossly intact, Normal deep tendon reflexes. Psychiatric: Cooperative, Appropriate mood & affect, Normal judgment, Non-suicidal. Review / Management Results review: Lab results 06/15/2020 7:23 EST ABO/Rh Repeat B POS 06/15/2020 7:20 EST ABO/Rh B POS Antibody Screen Negative ABSC . Impression and Plan Diagnosis 1-unilateral primary osteoarthritis right hip 2-s/p R DANIELA through anterior approach 3-right hip pain 4-CAD s/p MD 5-HTN 6-HLP 7-hypothyroidism -8 GERD 9-at risk for LISETH. Course: Plan/Respirex @ BS and encourage patient to use. Sleep apnea precautions if needed. C-pap at night if needed. Hold all BP meds if BSP < 130 MMHg. If SBP < 90 mmHg, you may give 500 ml NS IVF over one hour. ACT: CONSULT PT/OT as per Dr. kalen etienne. For urinary retention use bladder scanner, you may anchor FC. If no or low UOP you may give 250 mL NS IV over one hour. AM Labs BMP & Hgb/HCT. If pt. spikes fever > 101* F, encourage pt to use Respirex first, then you may give Tylenol 650 mg PO/ND x 1. If no response in 2 hours, you may get blood cx. x2, chest x-ray, sputum CX, S, gram stain x3, UA, C&S. Patient may have chloroseptic spray or throat lozenges for soar throat. DVT prophylaxis. If at any time the HGB is less than 8 type and cross then transfuse 2 units of PRBCs. Premedicate with Tylenol 650 mg PO and Benadryl 25mg PO. Electrolytes Replacement Protocol. Pain control. Close monitoring fluid and electrolytes. Fall risk precautions. Sleep apnea precautions. Stress ulcer prophylaxis. Date 07/03/2080 Time 1150 Hospitalist medicine consult addendum, internal medicine, Kg Keith MD -Seen and reexamined -Awake alert cooperative responsive under no acute distress -Pain well controlled -High spirit -No chest pain or trouble breathing -Participating well with PT/OT -No headache or dizziness when patient got up with PT/OT -No soreness after PT/OT -Released by PT/OT to go home -Tolerating well oral p.o. intake -No nausea or vomiting -No BM but passing gas -No trouble with urination -Urine output is adequate -Vitals reviewed -Released by Dr. Coyle to go home -Discharge medications seen, reviewed and reconciled -DVT prophylaxis and anticoagulation as per Dr. Coyle recommendations Patient is medically stable DIYA 65 mn patient seen and examined and reexamined, medical record reviewed, vitals reviewed, medications seen reviewed and reconciled, discussed with Pharm.D., discussed with the patient and with the staff, discussed with PT/OT, orders placed, consult note dictated . documented in this encounter Plan of Treatment Not on file documented as of this encounter Visit Diagnoses Not on filedocumented in this encounter
--- OUTSIDE RECORDS SUMMARY | 2024-12-30 13:38 | XMS_ITS | Encounter Summary ---
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 Name: TANESHA SALEEM /Sex: 1945 Female Med Rec #: [id number] Physician: RANDA DURAN MD-ORT Financial #: [id number] Pt. Type: O Room/Bed: Admit/Disch: 06/15/20 03:54:00 - Institution: [facility] [place] IntraOp Case Attendance Entry 1 Entry 2 Entry 3 Case Attendee RANDA DURAN Kiebler, Rachael A, RN LEVITSKY, BENJAMIN P MD-ORT Role Performed Surgeon/Proceduralist, Truck Driver Salesperson, First Scrub, First First Time In 06/15/20 08:29:00 06/15/20 08:29:00 06/15/20 08:29:00 Time Out 06/15/20 10:01:00 06/15/20 10:01:00 06/15/20 10:01:00 Procedure Hip Total Anterior Hip Total Anterior Hip Total Anterior Approach(Right) Approach(Right) Approach(Right) Other Attendee Superficial Wound Closed By: Last Modified By: Mony Summers RN Kiebler, Rachael A, Mony Ornelas, CAPO 06/15/20 10:05:17 06/15/20 10:05:17 06/15/20 10:05:17 Entry 4 Entry 5 Entry 6 Case Attendee Katia Senior CHAD, CSA BRUNER, HAVEN Role Performed Scrub, Second Printing Plate Setter, First Bagger Meat Time In 06/15/20 08:29:00 06/15/20 08:29:00 06/15/20 08:29:00 Time Out 06/15/20 10:01:00 06/15/20 10:01:00 06/15/20 10:01:00 Procedure Hip Total Anterior Hip Total Anterior Hip Total Anterior Approach(Right) Approach(Right) Approach(Right) Other Attendee Superficial Wound Closed By: Last Modified By: Mony Summers RN Kiebler, Rachael A, Mony Ornelas, CAPO 06/15/20 10:05:17 06/15/20 10:05:17 06/15/20 10:05:17 Entry 7 Entry 8 Entry 9 Case Attendee JOSEPH MCCARTY V, OTHER, ATTENDEE #1 JENNIE GARZA PA-C PUBLIC RELATIONS SPECIALIST-ANS Role Performed PUBLIC RELATIONS SPECIALIST/Nurse Franchise Sales Manager Vendor Physician res habilitation assistant Time In 06/15/20 08:29:00 06/15/20 08:29:00 06/15/20 08:29:00 Time Out 06/15/20 10:01:00 06/15/20 10:01:00 06/15/20 10:01:00 Procedure Hip Total Anterior Hip Total Anterior Hip Total Anterior Approach(Right) Approach(Right) Approach(Right) Other Attendee elaine santana Superficial Wound Closed By: Last Modified By: Mony Summers RN Kiebler, Rachael A, Mony Ornelas RN 06/15/20 10:05:17 06/15/20 10:05:17 06/15/20 10:05:17 Entry 10 Case Attendee OTHER, ATTENDEE #2 Role Performed Cell Saver Investigative Agent Time In 06/15/20 08:29:00 Time Out 06/15/20 10:01:00 Procedure Hip Total Anterior Approach(Right) Other Attendee elana moreno Superficial Wound Closed By: Last Modified By: Mony Summers RN 06/15/20 10:05:17 [facility] IntraOp Case Attendance Audit 06/15/20 10:05:17 Electrical Calibrator: [id number] Modifier: [id number] <+> Time Out 1 <*> Procedure Hip Total Anterior Approach(Right) 2 <+> Time Out 2 <*> Procedure Hip Total Anterior Approach(Right) 3 <+> Time Out 3 <*> Procedure Hip Total Anterior Approach(Right) 4 <+> Time Out 4 <*> Procedure Hip Total Anterior Approach(Right) 5 <+> Time Out 5 <*> Procedure Hip Total Anterior Approach(Right) 6 <+> Time Out 6 <*> Procedure Hip Total Anterior Approach(Right) 7 <+> Time Out 7 <*> Procedure Hip Total Anterior Approach(Right) 8 <+> Time Out 8 <*> Procedure Hip Total Anterior Approach(Right) 9 <+> Time Out 9 <*> Procedure Hip Total Anterior Approach(Right) 10 <+> Time In 10 <+> Time Out 10 <*> Procedure Hip Total Anterior Approach(Right) 06/15/20 09:06:11 Electrical Calibrator: [id number] Modifier: [id number] <+> 10 Case Attendee <+> 10 Role Performed <+> 10 Procedure <+> 10 Other Attendee 06/15/20 09:00:57 Electrical Calibrator: [id number] Modifier: [id number] <+> 1 Procedure 2 <*> Procedure Hip Total Anterior Approach(Right) 3 <*> Procedure Hip Total Anterior Approach(Right) 4 <*> Procedure Hip Total Anterior Approach(Right) 5 <*> Procedure Hip Total Anterior Approach(Right) 6 <*> Procedure Hip Total Anterior Approach(Right) 7 <*> Procedure Hip Total Anterior Approach(Right) 8 <*> Procedure Hip Total Anterior Approach(Right) 9 <+> Time In 9 <*> Procedure Hip Total Anterior Approach(Right) 06/15/20 09:00:50 Electrical Calibrator: [id number] Modifier: [id number] <+> 1 Time In 2 <+> Time In 2 <*> Procedure Hip Total Anterior Approach(Right) 3 <+> Time In 3 <*> Procedure Hip Total Anterior Approach(Right) 4 <+> Time In 4 <*> Procedure Hip Total Anterior Approach(Right) 5 <+> Time In 5 <*> Procedure Hip Total Anterior Approach(Right) 6 <+> Time In 6 <*> Procedure Hip Total Anterior Approach(Right) 7 <+> Time In 7 <*> Procedure Hip Total Anterior Approach(Right) 8 <+> Time In 8 <*> Procedure Hip Total Anterior Approach(Right) <+> 9 Case Attendee <+> 9 Role Performed <+> 9 Procedure [facility] IntraOp Case Times Entry 1 Patient In Room Time 06/15/20 08:29:00 Out Room Time 06/15/20 10:01:00 Anesthesia Start Time 06/15/20 08:29:00 Stop Time 06/15/20 10:01:00 Anesthesia Ready 06/15/20 08:29:00 Surgery / Procedure Times Start Time 06/15/20 08:58:00 Stop Time 06/15/20 10:01:00 Last Modified By: Mony Summers RN 06/15/20 10:05:11 [facility] IntraOp Case Times Audit 06/15/20 10:05:11 Electrical Calibrator: [id number] Modifier: [id number] <+> 1 Out Room Time <+> 1 Stop Time 06/15/20 10:01:14 Electrical Calibrator: [id number] Modifier: [id number] <+> 1 Stop Time [facility] IntraOp Cautery Entry 1 ESU Identification Cautery Type Monopolar ESU ID Number [id number] ID Type Hospital Number Cautery Settings Cut Setting 70 Coag Setting 70 ESU Grounding Pad Ground Pad Type Adult Grounding Pad Site Left Lower Abdomen Grounding Pad Mony Summers RN Applied By Grounding Pad Site Intact Skin Condition Before Cautery Grounding Pad Site Unchanged Skin Condition After Cautery Last Modified By: Mony Summers RN 06/15/20 08:59:18 [facility] IntraOp Communication Entry 1 Communication To Family/Significant other Comment start Communication By Mony Summers RN Last Modified By: Mony Summers RN 06/15/20 08:59:26 [facility] IntraOp Counts Verification Entry 1 Procedure Hip Total Anterior Approach(Right) Count Info Count Type Sponge Counts Verification Baseline/pre-procedure Sequence Counts Performed By Count Performed By MARCEL TORRES (Scrub) Count Performed By MARCEL TORRES (RN) Last Modified By: Mony Summers RN 06/15/20 08:59:39 [facility] IntraOp Counts Final Entry 1 Procedure Hip Total Anterior Approach(Right) Final Count Info Count Type Sponge, Sharps Counts Verification Skin Closure/end of Sequence procedure Count Results Correct, surgeon notified Counts Performed By Count Performed By Katia Senior (Scrub) Count Performed By Mony Summers RN (RN) Last Modified By: Mony Summers RN 06/15/20 09:43:25 [facility] IntraOp Cultures and Spec Summary Entry 1 Cultrures and Specimens Specimen Ordered: Yes Test(s) Routine/Path-Lab Requested/Final Disposition Last Modified By: Mony Summers RN 06/15/20 08:59:49 General Comments: right femoral head [facility] IntraOp Departure from OR Entry 1 Integumentary Assessment Integumentary WDL with exceptions Assessment WDL Skin Description Translucent (WDL with exeptions) Transfer/Handoff Transfer to PACU Phase I Handoff Method Bedside/Face to face Post-op Transport Bed (including Via specialty) Patient Transport JOSEPH MCCARTY V, Accompanied by Melina SANDERS Rachael A, RN Last Modified By: Mony Summers RN 06/15/20 09:00:27 General Comments: open skin tear left sawyer-noticed pre-op [facility] IntraOp Drains and Tubes Entry 1 Device Type Hemovac Size MED. Drain/Tube Activity Inserted Drain/Tube Suction Not applicable Device Location OPERATIVE SITE Method of Drainage Compression Last Modified By: Mony Summers RN 06/15/20 09:00:30 [facility] IntraOp Dressing and Packing Entry 1 Type Dressing Location OPSITE Wound Dressing Item Occlusive dressing, Skin Closure Glue Applied By JOSE MANUEL BROWNING CSA Other Comments MEPILEX; DERMABOND Last Modified By: Mony Summers RN 06/15/20 09:00:55 [facility] IntraOp Fire Risk Assessment Entry 1 Fire Info Surgical Site or 0- No Incision Above the Xyphoid Open O2 Source 0- No (Mask or Cannula) Available Ignition 1- Yes (ESU, Laser, Light Source) Fire Risk 1 Assessment Score Fire Score Fire Risk Yes Assessment Complete Fire Risk Mony Summers RN Assessment Verified By Fire Risk 06/15/20 08:20:00 Assessment Verified Date/Time Fire Risk High Risk Protocol Yes Implemented Standard Fire Yes Safety Precautions Followed Last Modified By: Mony Summers RN 06/15/20 09:01:03 [facility] IntraOp General Case Supplier Quality Engineering Manager 1 Case Information OR OR 06 E Case Level 1 Room Verified Yes Wound Class I - Clean Specialty SN Orthopedic Anesthesia Type General ASA Class 3 Diagnosis Preop Diagnosis osteoarthritis right hip Postop Same As Preop No Postop Diagnosis see md notes Last Modified By: Mony Summers RN 06/15/20 09:01:52 [facility] [place] IntraOp General Case Data Audit 06/15/20 09:01:52 Electrical Calibrator: [id number] Modifier: [id number] <+> 1 ASA Class <+> 1 Anesthesia Type <+> 1 Postop Same As Preop <+> 1 Preop Diagnosis <+> 1 Postop Diagnosis <+> 1 Room Verified E IntraOp Implant Log Entry 1 Entry 2 Entry 3 Type Implant (Synthetic) Implant (Synthetic) Implant (Synthetic) Implant Log Implant Type Hardware Hardware Hardware Tissue Implant Type Implant LINER NTRL GRP 4 36MM CUP CLUSTER-HOLE PC GRP HEAD FEM 36MM 03.5MM Identification [id number] Description Implant Quantity 1 1 1 Implant Site right hip right hip right hip Implant Identification Model Number Implant [id number] Identification Serial Number Implant Identification Lot Number Implant Exactech Exactech Exactech Identification Marine Equipment Design Engineer Name: Implant [id number] Identification Catalog Number Implant Size Implant Has an Yes Yes Yes Expiration Date Implant Expiration 04/04/25 04/29/30 03/21/25 Date Wasted Radioactive Material Time Implanted Tissue Implant Continue for Tissue Implant Documentation Tissue Identification Number Graft Prep Per Marine Equipment Design Engineer Instructions: Tissue Preparation Method: Reconstitution Solution: Reconstitution Solution Lot Number Reconstitution Solution Expiration Date: Thawing Solution Thawing Solution Lot Number Thawing Solution Expiration Date Preparation Materials, Other Preparation Materials, Other Lot Number Preparation Materials, Other Expiration Date Tissue Prepared/Processed By Marine Equipment Design Engineer Paperwork Completed Implant Type Comment Last Modified By: Mony Summers RN Kiebler, Rachael A, RN Kiebler, Rachael A, RN 06/15/20 09:16:43 06/15/20 09:16:43 06/15/20 09:43:07 Entry 4 Type Implant (Synthetic) Implant Log Implant Type Hardware Tissue Implant Type Implant STEM FEM ALTEON SEE SZ 4 Identification [id number] Description Implant Quantity 1 Implant Site right hip Implant Identification Model Number Implant [id number] Identification Serial Number Implant Identification Lot Number Implant Exactech Identification Marine Equipment Design Engineer Name: Implant [id number] Identification Catalog Number Implant Size Implant Has an Yes Expiration Date Implant Expiration 03/02/25 Date Wasted Radioactive Material Time Implanted Tissue Implant Continue for Tissue Implant Documentation Tissue Identification Number Graft Prep Per Marine Equipment Design Engineer Instructions: Tissue Preparation Method: Reconstitution Solution: Reconstitution Solution Lot Number Reconstitution Solution Expiration Date: Thawing Solution Thawing Solution Lot Number Thawing Solution Expiration Date Preparation Materials, Other Preparation Materials, Other Lot Number Preparation Materials, Other Expiration Date Tissue Prepared/Processed By Marine Equipment Design Engineer Paperwork Completed Implant Type Comment Last Modified By: Mony Summers RN 06/15/20 09:43:07 [facility] IntraOp Implant Log Audit 06/15/20 09:43:07 Electrical Calibrator: [id number] Modifier: [id number] <+> 3 Implant Identification Description <+> 3 Implant Identification Serial Number <+> 3 Implant Identification Marine Equipment Design Engineer Name: <+> 3 Implant Expiration Date <+> 3 Implant Site <+> 3 Implant Quantity <+> 3 Implant Identification Catalog Number <+> 3 Implant Type <+> 3 Implant Has an Expiration Date <+> 3 Type <+> 4 Implant Identification Description <+> 4 Implant Identification Serial Number <+> 4 Implant Identification Marine Equipment Design Engineer Name: <+> 4 Implant Expiration Date <+> 4 Implant Site <+> 4 Implant Quantity <+> 4 Implant Identification Catalog Number <+> 4 Implant Type <+> 4 Implant Has an Expiration Date <+> 4 Type [facility] IntraOp Intraoperative Assessment Entry 1 Valid History / Yes Physical in Chart Preoperative Yes Checklist Reviewed/Evaluated Allergies Reviewed Yes Patient is Latex No Sensitive Isolation Not applicable Precautions Noted Level of WDL Consciousness (WDL = Alert, Oriented to Person, Place, and Time) Skin Assessment Yes Verified Present Upon IVs Arrival to OR Intraoperative skin tear left sawyer Assessment Comment Last Modified By: Mony Summers RN 06/15/20 09:02:22 [facility] IntraOp Intraoperative Assessment Audit 06/15/20 09:02:22 Electrical Calibrator: [id number] Modifier: [id number] <+> 1 Intraoperative Assessment Comment 06/15/20 09:02:01 Electrical Calibrator: [id number] Modifier: [id number] <+> 1 Level of Consciousness (WDL = Alert, Oriented to Person, Place, and Time) <+> 1 Patient is Latex Sensitive [facility] IntraOp Intraoperative Equipment Entry 1 Type Equipment Equipment Equipment Patrick Suction System ID Number [id number] Setting HIGH Intraop Monitoring Electrocardiogram Three lead placement (ECG) Electrode Placement Blood Pressure Non-Invasive BP Device Source Blood Pressure Arm, left upper Location Pulse Oximeter Hand, left Probe Site Antiembolic Devices Antiembolic Devices Sequential compression device, knee high Antiembolic Device Left Location Antiembolic Device [id number] ID Number Scopes Photo/Video Documentation Photo No Video No Last Modified By: Mony Summers RN 06/15/20 09:02:45 [facility] IntraOp Medication Admin Entry 1 Entry 2 Entry 3 Medication/Irrigant TRANEXAMIC ACID vancomycin 1Gm vial - CLONIDINE-10ML 1000MG/10 ML [id number] Combo Med List 1 - Combo Med Time Administered Route of TOPICAL; MIXED W/ 25ML TOPICAL INJECTION Administration NACL Dose Dose 1000 1 0.8 Unit of Measure mg gram ml Volume 10ML Administered By RANDA DURAN, ROGER, RANDA, RANDA DURAN MD-ORT -ORT -ORT Procedure Irrigation Irrigant Volume In Irrigant Volume Out Last Modified By: Mony Summers RN Kiebler, Rachael A, RN Kiebler, Rachael A, RN 06/15/20 09:03:15 06/15/20 09:03:15 02/02/21 09:03:15 Entry 4 Entry 5 Entry 6 Medication/Irrigant ROPIVICAINE 5% lidocaine 1% w/ CLONIDINE-10ML epinephrine 1:100,000 20ml vial - [id number] Combo Med List 3 - Combo Med 4 - Combo Med 1 - Combo Med Time Administered Route of INJECTION INJECTION INJECTION Administration Dose Dose 25 23.2 0.8 Unit of Measure ml ml ml Volume Administered By RANDA DURAN CHRISTENSEN, CHRISTIAN, CHRISTENSEN, CHRISTIAN, MD-ORT -ORT -ORT Procedure Irrigation Irrigant Volume In Irrigant Volume Out Last Modified By: Mony Summers RN Kiebler, Rachael A, RN Kiebler, Rachael A, RN 06/15/20 09:03:15 06/15/20 09:03:15 06/15/20 09:03:15 [facility] IntraOp Patient Positioning Entry 1 Procedure Hip Total Anterior Approach(Right) Body Position Supine Left Leg Position Traction Right Leg Position Traction Feet Uncrossed Yes Pressure Points Yes Checked Positioning Devices Table, Fracture, Pillows, Arm Board Device Position SECURE OPERATIVE SIDE ARM WITH ADRY KAMILA ACROSS CHEST-PAD WITH EGG CRATE OR PILLOW; NON-OP ARM ON ARM BOARD; WRAP BOTH FEET WITH COBAN; USE FOAM FOOT PADDING; WRAP OP SIDE FOOT WITH COBAN AFTER PUTTING IN BOOT; IF PT. IS 5' OR UNDER USE EXTENSIONS FOR BOOT Positioned By Mony Summers RN, JENNIE GARZA PA-C, JOSE MANUEL BROWNING, [place], [place], JOSEPH Brennan, PUBLIC RELATIONS SPECIALIST-ANS Position Verified Positioning Yes Verified by Anesthesia Positioning Yes Verified by Surgeon Last Modified By: Mony Summers RN 06/15/20 09:03:22 [facility] IntraOp Sign In Entry 1 Patient, Site, Yes Procedure Identified Surgical Consent Yes Confirmed Relevant Surgical Yes Documents Available Surgical Site Yes Marked by person performing procedure Anesthesia Machine Yes Check Completed Medication Checks Yes Completed Allergies Yes Airway Difficult Yes Airway/Aspiration Risk Difficult Yes Airway/Aspiration Intervention Equipment Available Blood Loss Risk Yes Blood Loss Yes Intervention Equipment Prepared and Ready Hypothermia Risk Yes Warming Measures Yes Taken Last Modified By: Mony Summers RN 06/15/20 09:04:52 [facility] Intra Op Sign Out Entry 1 RN Confirmation Surgical Yes Procedure(s) Identified Instrument, Sponge Yes and Sharps Counts Correct/Documented Equipment Problems Yes Documented Specimen Labeled Yes Correctly Urinary Catheter N/A Documented in IView Randolph Patient Yes Recovery Concerns Reviewed with Anesthesia Provider, Surgeon and RN Randolph Patient Yes Management Concerns Reviewed with Anesthesia Provider, Surgeon and RN Safety Checklist Yes Elements Complete? RN Sign Out Mony Summers RN Signature RN Sign Out 06/15/20 10:04:00 Signature Date/Time Plan of Care Outcome - Fire Risk OUTCOME STATEMENT: Goal met Patient is free from injury related to surgical fire Plan of Care Outcome - Pt Positioning OUTCOME STATEMENT: Goal met Absence of signs and symptoms of positioning injury. Plan of Care Outcome - Skin Prep OUTCOME STATEMENT: Goal met Intraoperative care is consistent with measures to prevent infection Plan of Care Outcome - Xray/Images OUTCOME STATEMENT: Goal met Absence of observable signs or symptoms of radiation injury Plan of Care Outcome - Counts OUTCOME STATEMENT: Goal met Absence of signs and symptoms of injury related to extraneous objects Last Modified By: Mony Summers RN 06/15/20 10:05:30 [facility] Intra Op Sign Out Audit 06/15/20 10:05:30 Electrical Calibrator: [id number] Modifier: [id number] <+> 1 RN Sign Out Signature Date/Time [facility] IntraOp Skin Prep Entry 1 Procedure Hip Total Anterior Approach(Right) Prescribed Yes Pre-Surgical Prep Completed Prep Area OPSITE; WIPE WITH ALCOHOL FIRST, THEN DURAPREP X 2 Intraop Prep Integumentary WDL with exceptions Assessment WDL WDL Patient skin tear left sawyer Exceptions Prep Agents DuraPrep, Alcohol Prep by Mony Summers RN Hair Removal Last Modified By: Mony Summers RN 06/15/20 09:05:05 [facility] IntraOp Surgical Procedures Entry 1 Procedure Hip Total Anterior Approach Modifiers Right Additional RIGHT DIRECT ANTERIOR Procedure TOTAL HIP ARTHROPLASTY Description Primary Procedure Yes Primary Surgeon RANDA DURAN MD-ORT Start 06/15/20 08:58:00 Stop 06/15/20 10:01:00 Anesthesia Type General Specialty SN Orthopedic Wound Class I - Clean Last Modified By: Mony Summers RN 06/15/20 10:01:16 [facility] IntraOp Surgical Procedures Audit 06/15/20 10:01:16 Electrical Calibrator: [id number] Modifier: [id number] <+> 1 Stop [facility] IntraOp Temp Regulation Devices Entry 1 Temp Regulation Temperature Forced Air Warming Regulation Device device Temperature Upper body Regulation Site Temperature JOSEPH MCCARTY V, Regulation Device PUBLIC RELATIONS SPECIALIST-ANS Applied by Last Modified By: Mony Summers RN 06/15/20 09:02:48 [facility] IntraOp Time Out Entry 1 Procedure to be Hip Total Anterior Performed Approach(Right) Time Out Time Out Pause Time 06/15/20 08:57:00 All activity Yes suspended (unless life threatening emergency) Team Verbally Correct patient Confirms Information identity, Correct side and site are marked, Consent form is present and accurate, Agreement on the procedure to be done, Correct patient position, Relevant images/results properly labeled/appropriately displayed, Confirm antibiotics have been administered, Confirm the skin prep has dried, Confirm prosthesis/implant/devic e is present, Performed in location of procedure after prepped/draped, Performed before each procedure if multiple procedures Antibiotic Yes Prophylaxis Administered Or In Progress Within the Last 60 Minutes Beta Antonio Yes Administered Venous Yes Thromboembolism Prophylaxis Required Anticipated Critical Events Surgeon None expected Anesthesia Provider None expected Nursing Assures Sterility of instruments, Equipment concerns or issues, Implant Availability Essential Imaging Yes Labeled and Displayed Last Modified By: Mony Summers RN 06/15/20 09:01:31 [facility] IntraOp X-Ray and Images Entry 1 X-Ray/Imaging Type Fluoroscopy Fluoroscopy Type C-Arm Site OPERATIVE SITE Special Officer Name JOANIE, SYLVAIN Protective Devices Yes Used Last Modified By: Mony Summers RN 06/15/20 09:05:25 Case Comments <None> Finalized By: Mony Summers RN Document Signatures Signed By: Laura Loomis RN 06/15/20 12:28 Mony Summers RN 06/15/20 14:33 Mony Summers RN 06/15/20 10:05 Mony Summers RN 06/15/20 15:36 Unfinalized History Date/Time Username Reason for Unfinalizing Freetext Reason for Unfinalizing 06/15/20 12:28 ABDIEL Chart Audit 06/15/20 14:32 [id number] Correct Documentation 06/15/20 15:36 [id number] Correct Documentation Electronically signed by [facility] Conversion Medical Auditor Cerner at 08/27/2022 11:15 PM CDT documented in this encounter Plan of Treatment Not on file documented as of this encounter Visit Diagnoses Not on filedocumented in this encounter
--- OUTSIDE RECORDS SUMMARY | 2024-12-30 13:38 | XMS_ITS | Encounter Summary ---
Author Organization Healthcare Address [address] [place] [address] Care Team Providers Care Roof Fitter Name Role Phone Jeffrey Schuster MD Primary Care Provider [phone] Reason for Referral * Consultation (Routine) - Closed Specialty Diagnoses / Procedures Referred By Parker t Referred To Contact Endocrinology Diagnoses Nontoxic single thyroid nodule Low thyroid stimulating hormone (TSH) level Dalia Adame PA [address] [place] [address] Phone: tel: fax: [facility] [address] [place] [address] Phone: tel: fax: Referral ID Status Reason Start Date Expiration Date V isits Requested Visits Authorized [id number] Closed Specialty Services Required 10/14/2021 04/15/2023 1 1 Encounter Details Date Type Department Care Team (Late st Contact Info) Description 10/14/2021 Community [facility] [address] [place] [address] Dalia Adame PA [address] [place] [address] Nontoxic single thyroid nodule (Primary Dx); Low thyroid stimulating hormone (TSH) level Social History Tobacco Use Types Packs/Day Years Used Date Smoking Tobacco: Never Alcohol Use Standard Drinks/Week Comments Yes 0 (1 standard drink = 0.6 oz pur e alcohol) Comments Unknown Sex and Gender Information Value Date Recorded Sex Assigned at Not on file Legal Sex Female 6:40 PM EDT Gender Identity Not on file Sexual Orientation Not on file COVID-19 Exposure Response Date Recorded In the last 10 days, have yo u been in contact with someone who was confirmed or suspected to have Coronavirus/COVID-19? No / Unsure 10/13/2021 9:27 AM EDT documented as of this encounter Plan of Treatment Upcoming Encounters Date Type Department Care Team (Late st Contact Info) Description 01/13/2025 3:30 PM EDT Office Visit [facility] [address] [place] [address] Beto Kelly MD [address] [address] Scheduled Referrals Name Type Priority Associated Diagnoses Order Schedule Ambulatory referral to Endocrinology Outpatient Referral Routine Nontoxic single thyroid nodule Low thyroid stimulating hormone (TSH) level Expected: 10/14/2021 (Approximate), Expires: 01/14/2022 documented as of this encounter Visit Diagnoses Diagnosis Nontoxic single thyroid nodule- Primary Nontoxic uninodular goiter Low thyroid stimulating hormone (TSH) level documented in this encounter Care Teams Roof Fitter Relationship Specialty Start Date End Date Jeffrey Schuster MD [address] [place] [address] PCP - General 10/21/20 documented as of this encounter
--- OUTSIDE RECORDS SUMMARY | 2024-12-30 13:38 | XMS_ITS | Encounter Summary ---
Author Organization [employer] ([place], [place], [place], [place]) Address [address] [place] [address] Care Team Providers Care Waiter/Waitress Counter Name Role Phone Unavailable Primary Care Provider Unavailabl e Encounter Details Date Type Department Care Team (Late st Contact Info) Description 06/15/2020 Transcribed Document [facility] [place] [address] ProviderLandry MD [facility] [place] [address] Social History Tobacco Use Types [...] Conversion Note - Historical Provider, - 06/15/2020 2:04 PM FIRE ALARM MECHANIC Final Discharge Planning Entered On: 06/15/2020 14:05 EST Performed On: 06/15/2020 14:04 EST by MARIAELENA CANNON RN Final Discharge Planning Discharge Arrangements : Patient Post-Acute Information Patient Name: TANESHA SALEEM Gender: Female : [birth year] Age: 75 Years [place] Referral(s): Service: Organization: Business Address: Phone Number: Home Care Physician Services [facility] [phone], [facility] [address], [place], [address] Patient Offered Choice/Affiliations Explained : Yes Designation of Choice Signed : Yes Important Medicare Message Reviewed With : Other: outpatient Important Medicare Message Reviewed D/T : 06/15/2020 14:04 EST Transportation Needs : Family/Friend Follow Up Appointment Scheduled : Yes Is Patient High/Moderate Readmission Risk? : No Patient/Family Notified of Plan : Yes Support Person/Pt Rep Notified of Plan : Yes Is Patient Ready for Discharge? : Yes Physician Notified Patient is Ready for Discharge? : Yes Discharge To Care Management : Home Health Services (Related/SOC within 3 days)-06 MARIAELENA CANNON RN - 06/15/2020 14:04 EST Final Narrative Note Final Narrative Note : [facility]. No further CM needs identified. MARIAELENA CANNON RN - 06/15/2020 14:04 EST Electronically signed by Joseph Jauregui Conversion Straightening Press Operator Cerner at 08/27/2022 11:22 PM CDT documented in this encounter Plan of Treatment Not on file documented as of this encounter Visit Diagnoses Not on filedocumented in this encounter
--- OUTSIDE RECORDS SUMMARY | 2024-12-30 13:38 | XMS_ITS | Encounter Summary ---
Author Organization [employer] ([place], [place], [place], [place]) Address [address] [place] [address] Care Team Providers Care Paving Bed Maker Name Role Phone Unavailable Primary Care Provider Unavailabl e Encounter Details Date Type Department Care Team (Late st Contact Info) Description 06/15/2020 Transcribed Document [facility] [place] [facility] [place] [address] ProviderLandry MD [address] [place] [address] Social History Tobacco Use Types Packs/Day [...] - Historical Provider, - 06/15/2020 10:36 AM CITY CONSTABLE Evaluation, Occupational Therapy Entered On: 06/15/2020 11:59 EST Performed On: 06/15/2020 11:59 EST by JULIANE DIAS OTR/Jason General Information, OT Visit Type, OT : Initial evaluation Therapy Diagnosis, OT : aftercare following R ATHA Assisted by, OT : Physical Therapist Precautions in Place : Fall prevention measures General Information Comment, OT : pt is a pleasant 75 y.o. female admitted s/p R ATHA performed by Dr. Coyle and is WBAT. JULIANE DIAS OTR/L - 06/15/2020 12:46 EST Patient Orders : Order Date Order Ordering 06/15/2020 10:36 OT Evaluation and Treatment Ordered By: JENNIE GARZA PA-C 06/15/2020 10:36 OT Treatment Instructions Ordered By: JENNIE GARZA PA-C Active Diagnoses : No Qualifying Diagnoses Admission Date : 06/15/2020 03:54 Personal Devices : Personal Devices No Devices Recorded Assistive Devices : Assistive Devices No Devices Recorded JULIANE DIAS OTR/L - 06/15/2020 11:59 EST General Status Patient Received Status : Supine in bed, Other: seen in post op pt in stretcher Treatment Start Time : 06/15/2020 11:32 EST Patient Left Status : Up in chair, RN/PCT informed, All needs met and within reach, Other: pt left seated in recliner RN/PCT Informed Comment : RN ok'd to tx, ID and verified Treatment End Time : 06/15/2020 11:58 EST Treatment Time : 26 Minute(s) JULIANE DIAS OTR/L - 06/15/2020 12:46 EST History and Environment, OT Living Situation, Therapy : Home Patient Lives With : Spouse Persons Assisting Patient at Home : Spouse Persons Providing Information : Patient Home Equipment, Therapy : Walker Walker : Walker, front wheel Home Setup : Two story Bedroom Location : Main level Bathroom #1 Location : Main level Stairs : Yes Stair Location(s) : Inside, Outside Stairs Inside Comment : can stay on main level Outside Stairs, Number of Steps : 2 Railing Outside : No JULIANE DIAS OTR/Jason - 06/15/2020 12:46 EST Prior LOF Bathing, OT : Independent Prior LOF Bed Mobility : Independent Prior LOF Upper Body Dressing, OT : Independent Prior LOF Lower Body Dressing, OT : Independent Prior LOF Toileting : Independent Prior LOF Transfer : Independent Prior LOF Grooming, OT : Independent Prior LOF for IADLs, OT : Independent JULIANE DIAS OTR/L - 06/15/2020 12:46 EST Upper Extremity Right UE Active ROM : WFL Right UE Strength : WFL Left UE Active ROM : WFL Left UE Strength : WFL JULIANE DIAS OTR/L - 06/15/2020 12:46 EST Mobility Device/Prosthesis/Wt Bearing Weight Bearing Status Maintained : Yes Weight Bearing Status : As tolerated Functional Mobility Device : Gait belt, Walker, front wheel JULIANE DIAS OTR/Jason - 06/15/2020 12:46 EST Functional Mobility Mobility Grid Supine to Sit : Supervision/set-up Sit to Stand : Supervision/set-up Bed to Chair : Supervision/set-up Stand to Sit : Supervision/set-up JULIANE DIAS OTR/Jason 06/15/2020 12:46 EST Functional MobilityComment : gait belt donned, pt completes functional mobility with CGA and transfer to toilet in bathroom in post op, after toileting pt walks back and transfers to recliner with CGA. cues for safety and use of rw JULIANE DIAS OTR/Jason - 06/15/2020 12:46 EST Activity Tolerance, OT Activity Comment : fair+ JULIANE DIAS OTR/Jason - 06/15/2020 12:46 EST Neurological/Sensory Overall Sensory Response : Intact JULIANE DIAS OTR/Jason 06/15/2020 12:46 EST Cognition Assessment, OT Orientation : Oriented x 4 JULIANE DIAS OTR/Jason 06/15/2020 12:46 EST Education OT Occupational Therapy Education Grid Activity of Daily Living Training : Verbalizes understanding, Returns demonstration Functional Mobility Training : Verbalizes understanding, Returns demonstration Home Safety : Verbalizes understanding (Comment: handout and pt education [JULIANE DIAS OTR/Jason 06/15/2020 12:46 EST] ) JULIANE DIAS OTR/Jason 06/15/2020 12:46 EST Indication Assessment, OT Occupational Therapy Indicated : No Occupational Therapy Not Indicated : Other: pt will be discharging home today JULIANE DIAS OTR/Jason 06/15/2020 12:46 EST Plan of Care, OT OT Tx Plan/Goals Established w Patient : No Reason OT Treatment/Plan Not Established : no further acute care OT needs Other OT Treatment Provided This Date : ADL JULIANE DIAS OTR/Jason 06/15/2020 12:46 EST Treatment Note Subjective Comment : pt agrees to tx Additional Objective Information : eval 8 ADL 18 Assessment : no further acute care OT needs at this time, pt education complete and return demo on LB ADL, transfers and home safety Plan for Treatment : pt will be discharging home with family assist and home health therapy JULIANE DIAS OTR/Jason 06/15/2020 12:46 EST Pain Assessment Pain Scaled Used : 0-10 Pain scale Pain Score Pre-Intervention : 0 JULIANE DIAS OTR/L - 06/15/2020 12:46 EST Image 1 - Images currently included in the form version of this document have not been included in the text rendition version of the form. [facility] OT Charges OT Selfcare/Hm Mgmt Ea 15 Min : 1 OT Eval Low Complexity : 1 JULIANE DIAS OTR/L - 06/15/2020 12:46 EST documented in this encounter Plan of Treatment Not on file documented as of this encounter Visit Diagnoses Not on filedocumented in this encounter
--- OUTSIDE RECORDS SUMMARY | 2024-12-30 13:38 | XMS_ITS | Encounter Summary ---
Author Organization [employer] ([place], [place], [place], [place]) Address [address] [place] [address] Care Team Providers Care Repertoire Manager Name Role Phone Unavailable Primary Care Provider Unavailabl e Encounter Details Date Type Department Care Team (Late st Contact Info) Description 06/15/2020 Transcribed Document [facility] [place] [address] ProviderLandry [place] [address] Social History Tobacco Use Types [...] Cerner Conversion Note - Historical ProviderMD - 06/15/2020 12:28 PM MOLD BUILDER Patient Education Materials Follows: Dr. Coyle???s ATHA Adhere to all weight [...] on the 3rd day after surgery. Use [email or web address] for showering. Incision area [...] activities are safe for you. ??? Take cpcn-yem-jzypkji and prescription medicines only as told by [...] 08/06/2001 Document Revised: 05/03/2018 Document Reviewed: 12/14/2017 Elsevier Patient Education ? 2020 [email or web address] documented in this encounter Plan of Treatment Not on file documented as of this encounter Visit Diagnoses Not on filedocumented in this encounter
--- OUTSIDE RECORDS SUMMARY | 2024-12-30 13:38 | XMS_ITS | Encounter Summary ---
Author Organization Healthcare Address [address] [place] [address] Care Team Providers Care Production Lapping Machine Operator Name Role Phone Jeffrey Schuster MD Primary Care Provider [phone] Reason for Visit * Reason Comments Med Refill Encounter Details Date Type Department Care Team (Late st Contact Info) Description 12/26/2021 Refill [facility] [address] [place] [address] Marianne Brown, OD [address] [place] [address] Pseudoexfoliation (PXF) glaucoma, mild stage Social History Tobacco Use Types Packs/Day Years [...] suspected to have Coronavirus/COVID-19? No / Unsure 12/29/2021 1:27 PM EDT documented as of this encounter Plan of Treatment Upcoming Encounters Date Type Department Care Team (Late Contact Info) Description 01/13/2025 3:30 PM EDT Office Visit [facility] [address] [place] [address] Beto Kelly MD [address] [place] [address] documented as of this encounter Visit Diagnoses Diagnosis Pseudoexfoliation (PXF) glaucoma, mild stage documented in this encounter Care Teams Production Lapping Machine Operator Relationship Specialty Start Date End Date Jeffrey Schuster MD [address] [place], [place] [id number] PCP - General 10/21/20 documented as of this encounter
--- OUTSIDE RECORDS SUMMARY | 2024-12-30 13:38 | XMS_ITS | Encounter Summary ---
Author Organization [employer] ([place], [place], [place], [place]) Address [address] [place] [address] Care Team Providers Care Manager Monitoring Name Role Phone Unavailable Primary Care Provider Unavailabl e Encounter Details Date Type Department Care Team (Late st Contact Info) Description 06/15/2020 Transcribed Document [facility] [place] [address] ProviderLandry MD [facility] [place] [address] Social History Tobacco Use Types [...] Conversion Note - Historical Provider, - 06/15/2020 2:03 PM WOOD HEEL FLAP TRIMMER On Going Discharge Planning Entered On: 06/15/2020 14:04 EST Performed On: 06/15/2020 14:03 EST by MARIAELENA CANNON, CAPO Care Management Progress Note Discharge Arrangements : Patient Post-Acute Information Patient Name: TANESHA SALEEM Gender: Female : 41 Age: 75 Years Gamal Referral(s): Service: Organization: Business Address: Phone Number: Home Care Physician Services [facility] [phone], [facility] [address], [place], [address] Discharge Options Discussed with Patient : Discharge transportation, DME, Home Health Barriers to Discharge Identified : None identified Barriers to Discharge Unresolved : All resolved Designation of Choice Signed : Yes Patient Offered Choice/Affiliations Explained : Yes List/Info Provided Pt/Fam/Support Person : Home health Were Referrals Sent to Post Acute Providers : Yes Does the Patient have a Floor to SNF Benefit? : No Physician Agreeable to Move Forward with D/C Plan? : Yes Did you Attend Multidisciplinary Rounds? : No MARIAELENA CANNON, RN - 06/15/2020 14:03 EST Electronically signed by [facility], [facility] Conversion Environmental Services Assistant Cerner at 08/27/2022 11:15 PM CDT documented in this encounter Plan of Treatment Not on file documented as of this encounter Visit Diagnoses Not on filedocumented in this encounter
--- OUTSIDE RECORDS SUMMARY | 2024-12-30 13:38 | XMS_ITS | Encounter Summary ---
Author Organization [employer] ([place], [place], [place], [place]) Address [address] [place] [address] Care Team Providers Care Marksmanship Instructor Name Role Phone Unavailable Primary Care Provider Unavailabl e Encounter Details Date Type Department Care Team (Late st Contact Info) Description 06/15/2020 Transcribed Document [facility] [place] [facility] [place] [address] ProviderLandry MD [facility] [place] [address] Social History Tobacco Use Types [...] Conversion Note - Historical ProviderMD - 06/15/2020 7:24 AM TANDEM MILL OPERATOR Pre Procedure Adult Entered On: 06/15/2020 7:29 EST Performed On: 06/15/2020 7:24 EST by Aga Wall RN Height and Weight, Clinical Dosing Height Source : Stated Height Entry Format : [place] Height, Feet : 5 ft(Converted to: 152 cm, 60 Inch) Height, Inches : 7 Inch(Converted to: 0 ft 7 Inch, 17.78 cm) Clinical Height : 170.18 cm Weight Source : Standing scale Weight Entry Format : [place] Clinical Dosing Weight : 75 kg Weight, Pounds : 165 lb Body Surface Area (BSA) : 1.86 m2 Body Mass Index : 25.9 kg/m2 (HI) [place] Body Weight : 61 kg Aga Wall RN - 06/15/2020 7:24 EST Health Histories Smoking Status : Never (less than 100 in lifetime; none in last 30 days) Smokeless Tobacco Status : Never Wall, Aga, RN - 06/15/2020 7:24 EST Social History (As Of: 06/15/2020 07:29:16 EST) Tobacco: Use in Last 12 Months: No. Smoking Status Never smoker. (Last Updated: 04/13/2015 09:52:23 EST by OSCAR REDDY RN) Alcohol: Alcohol Use History Yes. # Drinks/Day: 2. Total Drinks/Week: 14. Alcohol Use Frequency Daily. (Last Updated: 04/06/2015 12:42:11 EST by ELIANA MCDONALD RN) Alcohol Use History Yes. # Drinks/Day: 2. Use in Last 12 Months: Yes. Alcohol Use Frequency Daily. (Last Updated: 06/01/2020 10:20:22 EST by Joselin Albert RN) Substance Abuse: Drug Use Hx: No. Use in Last 12 Months: No. (Last Updated: 04/06/2015 12:42:19 EST by ELIANA MCDONALD RN) Nutrition/Health: Regular (Last Updated: 06/01/2020 10:20:30 EST by Joselin Albert RN) Infectious Disease History Has the patient ever been tested for COVID-19? : Yes, Patient stated results Negative Where was the COVID-19 Testing completed? : [facility] Where are the test results? : In EMR Results Date of COVID-19 test known? : Yes Date of COVID-19 Test : 06/11/2020 EST Does patient have symptoms of COVID-19? : No COVID19 Screening : No Experiencing Infectious Disease Symptoms : No symptoms Physical contact outside [place] in the last 30 days : No Infectious Disease History : Chicken pox/Shingles, Measles, Mumps Tuberculosis Symptoms : None Aga Wall RN - 06/15/2020 7:24 EST COVID19 PreProcedure Screening Is this an Emergent or Add on Procedure? : No Date PreProcedure COVID-19 test known? : Yes Date of PreProcedure COVID-19 : 06/11/2020 EST Has patient been isolated since the test : Yes Exposed to COVID19 symptoms since test? : No Aga Wall RN - 06/15/2020 7:24 EST Anesthesia/Transfusion History Family History of Anesthesia Reaction : No prior transfusion(s) Transfusion History : Prior anesthesia without reaction Family History of Anesthesia Reaction : None Aga Wall RN - 06/15/2020 7:24 EST Functional Assessment Living Situation : Home Patient Lives With : Spouse Persons Assisting Patient at Home : Spouse Current Home Treatments : None Home Equipment : Walker Aga Wall RN - 06/15/2020 7:24 EST [place] Suicide Severity Rating Scale (C-SSRS) CSSRS Past Month Wish to be : No CSSRS Past Month Suicidal Thoughts : No CSSRS Lifetime Suicide Behavior : No Suicide Severity Rating Score : 0 Suicide Severity Rating : No Additional Care Required at this time Aga Wall RN - 06/15/2020 7:24 EST Psychosocial History Do You Have a History of the Following? : Patient denies history Currently in Unsafe Situation : Aga Gonzalez RN - 06/15/2020 7:24 EST Advance Directive Patient has Advance Directive *Q : Yes, Advance Directive on file Advance Directive Type : Living will Copy Advance Directive Verified/on Chart : gAa Gonzalez RN - 06/15/2020 7:24 EST Spiritual/Cultural Needs Any Spiritual/Cultural Needs or Requests : No Sabianist Preference : Presbyterian Aga Wall RN - 06/15/2020 7:24 EST Teaching/Learning Assessment Barriers To Learning : None evident Individuals Taught : Patient Readiness to Learn : Cooperative Highest Level of Education : Some college Baseline Knowledge of Topic : Good Readiness to Learn : Explanation Learning Style Preferences Patient : None Learning Style Preferences Family : None Aga Wall RN - 06/15/2020 7:24 EST Education Topics, Periop Preadmission Perioperative Education Grid Infection Control : Verbalizes understanding IV's : Verbalizes understanding Aga Wall RN - 06/15/2020 7:24 EST General Info Support Person/Pt Rep Name : Blaze Charley Family/Rep/Phys Notified of Admit : No Emergency Contact #1 : Blaze Saleem Emergency Contact #1 Emergency Contact #1 Relationship : spouse Emergency Contact #2 : . Emergency Contact #2 Phone Number : . Emergency Contact #2 Relationship : . Primary Language : Serbian Preferred Communication Mode : Verbal Communication Barrier : None Community Development Worker Needed : Aga Gonzalez RN - 06/15/2020 7:24 EST Vital Measurements Temperature Source : Oral Temperature Mode : Fahrenheit Temperature, Fahrenheit : 96.9 Deg F Clinical Temperature, C : 36.1 Deg C Pulse Method : Non-Invasive BP Device Pulse Source : Radial, Right Peripheral Pulse Rate : 71 bpm Pulse Rhythm : Regular Respiratory Rate : 16 Breaths/Min Systolic Blood Pressure : 131 mmHg Diastolic Blood Pressure : 79 mmHg Oxygen Saturation : 96 % Oxygen Therapy Mode : Room air Aga Wall RN - 06/15/2020 7:24 EST Sleep Apnea Risk Assmt Hx of Obstructive Sleep Apnea Diagnosis : No Snore Loudly : Yes Tired, Fatigued, or Sleepy During Day : Yes Observed Stopping Breathing During Sleep : No Have/Are Being Treated for Hypertension : Yes BMI Greater Than 35 kg/m2 : No Age over 50 Years Old : Yes Neck Circumference Greater Than 40 cm : No Gender Male : No STOP-BANG Sleep Apnea Risk Level Score : 4 Aga Wall RN - 06/15/2020 7:24 EST Tristin Scale Tristin Sensory Perception : No impairment Tr[place]in Moisture : Rarely moist Tristin Activity : Walks frequently Tristin Mobility : Slightly limited Tristin Nutrition : Excellent [place] Friction and Shear : No apparent problem Tristin Score : 22 Aga Wall RN - 06/15/2020 7:24 EST Oxygen Therapy Oxygen Therapy Mode : Room air Aga Wall RN - 06/15/2020 7:24 EST Pain Assessment Pain Assessment : Initial assessment Pain Scale Used : 0-10 Scale Aga Wall RN - 06/15/2020 7:24 EST Fall Risk Scales ABCs Fall Injury Risk Identification : Surgery ABC Fall Injury Risk : Moderate to high injury risk [place] Hx Falls Immediate/Within 3 Months : No [place] Secondary Diagnosis : No [place] Use of Ambulatory Aid : None [place] IV Therapy or IV Access : Yes [place] Gait/Transferring : Normal, bedrest, immobile [place] Mental Status : Oriented to own ability [place] Fall Risk Score : 20 [place] Fall Scale Risk Level : 0-24 Low Risk [place] Fall Interventions : Adequate lighting, Assistive devices within reach, Bed in low position, Call device within reach, Fall prevention handout/education per facility policy, Frequent orientation to call device, Frequent orientation to surroundings, Hourly comfort/safety rounds, Non-slip footwear, Personal items within reach, Reinforced to call for assistance before getting out of bed, Room free of clutter/spills, Upper side-rails up, Wheels locked, Wires/Cords secured Barriers to Learning : None evident Learning Style Preferences Family : None Learning Style Preferences Patient : None Aga Wall RN - 06/15/2020 7:24 EST Education Topics, Day of Surgery DayofSurgery Education Grid Infection Control : Verbalizes understanding Infection Risks : Verbalizes understanding IV's : Verbalizes understanding Aga Wall RN - 06/15/2020 7:24 EST Valuables and Belongings Valuables and Belongings : Clothing Clothing : Common streetwear Clothing Disposition : With family Aga Wall RN - 06/15/2020 7:24 EST Pain Scale Intensity : 0 Aga Wall RN - 06/15/2020 7:24 EST Image 4 - Images currently included in the form version of this document have not been included in the text rendition version of the form. Darleen Coma Darleen Best Motor Response : Obey commands Bearden Best Verbal Response : Oriented [place] Eye Opening Response : Spontaneous Darleen Coma Score : 15 Aga Wall RN - 06/15/2020 7:24 EST documented in this encounter Plan of Treatment Not on file documented as of this encounter Visit Diagnoses Not on filedocumented in this encounter
--- OUTSIDE RECORDS SUMMARY | 2024-12-30 13:38 | XMS_ITS | Referral Summary ---
Author Organization [employer] ([place], [place], [place], [place]) Address [address] [place] [address] Care Team Providers Care Credit Reporter Name Role Phone Unavailable Primary Care Provider Unavailabl e Social History Tobacco Use Types Packs/Day Years Used Date Smoking Tobacco: Never Assessed Comments Unknown Sex and Gender Information Value Date Recorded Sex Assigned at Female 11/08/2021 7:46 PM CDT Legal Sex Female 7:46 PM CDT Gender Identity Female 11/08/2021 7:46 PM CDT Sexual Orientation Not on file Plan of Treatment Not on file
--- OUTSIDE RECORDS SUMMARY | 2024-12-30 13:38 | XMS_ITS | Encounter Summary ---
Author Organization [employer] ([place], [place], [place], [place]) Address [address] [place] [address] Care Team Providers Care Email Marketing Coordinator Name Role Phone Unavailable Primary Care Provider Unavailabl e Encounter Details Date Type Department Care Team (Late st Contact Info) Description 06/15/2020 Transcribed Document [facility] [place] Family Medicine Formerly [facility] [place] [address] ProviderLandry MD [address] [place] [address] Social History Tobacco Use Types Packs/Day [...] - Landry ProviderMD - 06/15/2020 8:58 AM AMMUNITION AND EXPLOSIVES HANDLER [facility] Main OR PostOp Summary Primary Physician: RANDA DURAN MD-ORT Finalized Date/Time: 06/15/20 13:04:41 Pt. Name: TANESHA SALEEM/Sex: 1945 Female Med Rec #: [id number] Physician: RANDA DURAN MD-ORT Financial #: [id number] Pt. Type: O Room/Bed: Admit/Disch: 06/15/20 03:54:00 - Institution: [facility] Main OR PostOp Case Times Entry 1 In PACU II 06/15/20 10:56:00 Ready for PACU II 06/15/20 13:00:00 Discharge Discharge from PACU 06/15/20 13:00:00 II Last Modified By: MINO MCCOY RN 06/15/20 13:04:38 Finalized By: MINO MCCOY, RN Document Signatures Signed By: MINO MCCOY RN 06/15/20 13:04 Electronically signed by Juventino [facility] Conversion Human Resources Assistant Manager Cerner at 08/27/2022 11:04 PM CDT documented in this encounter Plan of Treatment Not on file documented as of this encounter Visit Diagnoses Not on filedocumented in this encounter
--- OUTSIDE RECORDS SUMMARY | 2024-12-30 13:39 | XMS_ITS | Clinical Summary ---
Author Organization Healthcare Address [address] [place] [address] Care Team Providers Care Tank Officer Name Role Phone Jeffrey Schuster MD Primary Care Provider [phone] Allergies Active Allergy Reactions Criticality Noted Date Comments Morphine Itching,Unknown - Pa tient states they do not know rxn details,Rash Medium 03/07/2011 Medications thyroid ([place]) 120 MG tablet Take 112 mg by mouth 1 (one) time each day. Active calcium carbonate (Maalox) 600 MG chewable tablet Chew 1 tablet (600 mg) 1 (one) time each day. Active omeprazole (PriLOSEC) [address] capsule Take 1 capsule (20 mg) by mouth 1 (one) time each day. Do not crush or chew. Active Cobalamin Combinations (B-12) 100-[address] 1 TABLET UNDER THE TONGUE ONCE DAILY 04/24/20 22 Active Eliquis 5 MG tablet Take 1 tablet (5 mg) by mouth 2 (two) times a day. 03/27/20 23 Active fluticasone (Flonase) 50 MCG/ACT nasal spray 03/23/20 23 Active dilTIAZem CD (Cardizem CD) 120 MG 24 hr capsule Take 1 capsule (120 mg) by mouth 1 (one) time each day. 02/22/20 24 Active atorvastatin (Lipitor) 40 MG tablet Take 1 tablet (40 mg) by mouth 1 (one) time each day. Active bisoprolol (Zebeta) 10 MG tablet 04/03/20 24 Active dilTIAZem ER (Tiazac) 180 MG 24 hr capsule Take 1 capsule (180 mg) by mouth 1 (one) time each day. 11/09/19 Active alpha tocopherol (Vitamin E) 100 units capsule 90 mg. 02/13/20 Active Omeprazole 20 MG Tablet Delayed Release Dispersible .COMPLEX 07/18/19 Active timolol (Timoptic) 0.5 % ophthalmic solutionIndications: Pseudoexfoliation (PXF) glaucoma, mild stage,Capsular glaucoma with pseudoexfoliation of lens, right eye, mild stage Administer 1 drop into both eyes 2 times a day. 30 mL 4 09/10/19 Active bimatoprost (Lumigan) 0.01 % ophthalmic solution Administer 1 drop into both eyes nightly. May substitute Lumigan or Bimatoprost, 0.01% or 0.03%, please pick most affordable option. Disappointing response to Latanoprost 10 mL 4 11/26/19 Active Active Problems Problem Noted Date Diagnosed Date Acquired hallux valgus of both feet 03/06/2024 Allergic rhinitis 03/06/2024 Aortic insufficiency 03/06/2024 Bilateral tinnitus 03/06/2024 Brittle nails 03/06/2024 Callus of foot 03/06/2024 Decreased pedal pulses 03/06/2024 Decreased sensation of lower extremity Diastolic dysfunction 03/06/2024 Ear itching 03/06/2024 Fatigue 03/06/2024 Hammertoes of both feet 03/06/2024 Hearing loss 03/06/2024 HHD (hypertensive heart disease) 03/06/2024 Keratosis 03/06/2024 Anemia 03/06/2024 Leukopenia 03/06/2024 Pancytopenia 03/06/2024 Loss of balance 03/06/2024 Neuropathy 03/06/2024 Palpitations 03/06/2024 Afib 03/06/2024 Paroxysmal A-fib 03/06/2024 Plantar fat pad atrophy 03/06/2024 Porokeratosis 03/06/2024 Tachyarrhythmia 03/06/2024 Thoracic back pain 03/06/2024 Tick bite 03/06/2024 Unsteady gait 03/06/2024 Vitamin D deficiency 03/06/2024 History of bilateral hip replacements 03/06/2024 HLD (hyperlipidemia) 03/06/2024 GERD (gastroesophageal reflux disease) 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, bilateral, 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 Pseudoexfoliation (PXF) glaucoma, mild stage 02/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 Aftercare following joint replacement surgery CAD (coronary artery disease) 05/14/2020 Essential (primary) hypertension 05/14/2020 Gastro-esophageal reflux disease without esophag itis 05/14/2020 History of falling 05/14/2020 Hyperlipidemia, unspecified 05/14/2020 Malignant neoplasm of colon, unspecified 021 Presence of left artificial hip joint 05/14/2020 Presence of right artificial hip joint Athscl heart disease of [place] ve coronary artery w/o ang pctrs 05/14/2020 Presence of right artificial knee joint 05/14/19 21 Hypothyroidism 05/14/2020 Mixed type age-related cataract, both eyes 07/07 Bilateral presbyopia 07/07/2015 OAG (open angle glaucoma) suspect, low risk 06/15 Regular astigmatism, bilateral 07/07/2015 Glaucoma suspect of both eyes 02/11/2015 Thyroid disorder 02/11/2015 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 Encounters Date Type Department Care Team Description 12/30/2024 Telephone [facility] [address] [place] [address] Cassandra Diaz MD HCN - Patient Message 12/25/2024 Travel 11/25/2024 [employer] [facility] [address] [place] [address] Cassandra Diaz MD 10/13/2024 [employer] [facility] [address] [place] [address] Cassandra Diaz MD from Last 3 Months Immunizations Immunization Administration Dates Next Due Influenza, high-dose, quadrivalent 01/05/2021,,02/01/2016 Influenza, seasonal, injecta ble, preservative free 01/26/2020 Influenza, trivalent, adjuvanted 02/02/2017 Pneumococcal Conjugate PCV 13 02/07/2017 Family History Medical History Relation Name Comments Cancer Father Patricio Johnson Cardiac disorder Father Patricio Johnson Other cancer Father Patricio Johnson Glaucoma Mother Lianna Fuentes Thyroid disease Mother Lianna Fuentes Relation Name Status Comments Father Patricio Johnson Mother Lianna Fuentes Social History Tobacco Use Types Packs/Day Years Used Date Smoking Tobacco: Never Passive Smoke Exposure: Never Smokeless Tobacco: Never Tobacco Cessation:Counseling Given: No Alcohol Use Standard Drinks/Week Comments Yes 0 (1 standard drink = 0.6 oz pur e alcohol) Comments Unknown Sex and Gender Information Value Date Recorded Sex Assigned at Not on file Legal Sex Female 6:40 PM EDT Gender Identity Not on file Sexual Orientation Not on file Plan of Treatment Upcoming Encounters Date Type Department Care Team (Late st Contact Info) Description 01/13/2025 3:30 PM EDT Office Visit [facility] [address] [place] [address] Beto Kelly MD [address] [address] Health Maintenance Due Date Last Done Comments [facility]-Bone Density Scan 1945 [facility]-Depression Screening 1945 [facility]-Medicare Annual Wellness (AWV) 1945 [facility]-/Child/Adol SDOH Screenings 1945 [facility]- SDOH Screenings 1961 [facility]-Adult SDOH Screenings 1963 [facility]-Pneumococcal Vaccine: 50+ Years (2 of 2 - PPSV23) 04/04/2017 02/07/2017 [facility]-Zoster Vaccines (2 of 2) 05/07/2024 03/12/2024 [id number] Vaccine (9 - Pfizer risk 2023- season) 2024 02/01/2024, 10/22/2023, 02/16/2023, Additional history exists [facility]-Influenza Vaccine (#1) 01/12/202502/06, 02/06/2023, 02/01/2022, Additional history exists [facility]-DTaP,Tdap,and Td Vaccines (2 - Tdap) 02/21/2034 02/22/2024 [facility]-RSV Vaccine: 60+ Years or Completed 02/06/2023 HPV Vaccines Aged Out No longer eligi ble based on patient's age to complete this topic [facility]-HIB Vaccines Aged Out No longer e ligible based on patient's age to complete this topic [facility]-Hepatitis A Vaccines Aged Out No longer eligible based on patient's age to complete this topic [facility]-IPV Vaccines Aged Out No longer e ligible based on patient's age to complete this topic [facility]-Rotavirus Vaccines Aged Out No lo nger eligible based on patient's age to complete this topic Insurance MEDICARE [facility] Care Teams Tank Officer Relationship Specialty Start Date End Date Jeffrey Schuster MD [address] [place] [address] PCP - General 10/21/20
--- OUTSIDE RECORDS SUMMARY | 2024-12-30 13:39 | XMS_ITS | Encounter Summary ---
Author Organization [employer] ([place], [place], [place], [place]) Address [address] [place] [address] Care Team Providers Care Informatics Pharmacist Name Role Phone Unavailable Primary Care Provider Unavailabl e Encounter Details Date Type Department Care Team (Late st Contact Info) Description 06/01/2020 Transcribed Document [facility] Family Medicine [facility] [place] [address] ProviderLandry MD [facility] [address] Social History Tobacco Use Types [...] Cerner Conversion Note - Historical ProviderMD - 06/01/2020 10:15 AM FINANCIAL QUANTITATIVE ANALYST PAT Adult Entered On: 06/01/2020 10:17 EST Performed On: 06/01/2020 10:15 EST by Joselin Albert RN Vital Measurements Temperature Source : Temporal artery scanning Temperature Mode : Fahrenheit Temperature, Fahrenheit : 97 Deg F Clinical Temperature, C : 36.1 Deg C Pulse Method : Non-Invasive BP Device Pulse Source : Radial, Left Peripheral Pulse Rate : 65 bpm Pulse Rhythm : Regular Respiratory Rate : 16 Breaths/Min Blood Pressure Location : Arm, left upper Blood Pressure Source : Non-Invasive BP Device Blood Pressure Position : Sitting Systolic Blood Pressure : 114 mmHg Diastolic Blood Pressure : 65 mmHg Oxygen Saturation : 97 % Oxygen Therapy Mode : Room air Joselin Albert RN - 06/01/2020 10:15 EST Height and Weight, Clinical Dosing Height Source : Stated Height Entry Format : [place] Height, Feet : 5 ft(Converted to: 152 cm, 60 Inch) Height, Inches : 7 Inch(Converted to: 0 ft 7 Inch, 17.78 cm) Clinical Height : 170.18 cm Weight Source : Standing scale Weight Entry Format : [place] Clinical Dosing Weight : 75 kg Weight, Pounds : 165 lb Body Surface Area (BSA) : 1.86 m2 Body Mass Index : 25.9 kg/m2 (HI) [place] Body Weight : 61 kg Joselin Albert RN - 06/01/2020 10:15 EST Health Histories Smoking Status : Never (less than 100 in lifetime; none in last 30 days) Smokeless Tobacco Status : Never Joselin Albert RN - 06/01/2020 10:19 EST Social History (As Of: 06/01/2020 10:25:05 EST) Tobacco: Use in Last 12 Months: [...] COVID-19? : Yes, Patient stated results Negative Date of COVID-19 test known? : No Date Comment : Feb 2020 Does patient have symptoms of COVID-19? : No COVID19 Screening : No Experiencing Infectious Disease Symptoms : No symptoms Physical contact outside [place] in the last 30 days : No Infectious Disease History : Chicken pox/Shingles, Measles, Mumps Tuberculosis Symptoms : None Joselin Albert RN - 06/01/2020 10:19 EST COVID19 PreProcedure Screening Is this an Emergent or Add on Procedure? : No Date PreProcedure COVID-19 test known? : No Has patient been isolated since the test : N/A - PreProcedure, in-person visit Exposed to COVID19 symptoms since test? : N/A - PreProcedure, in-person visit Joselin Albert RN - 06/01/2020 10:19 EST Anesthesia/Transfusion History Family History of Anesthesia Reaction : No prior transfusion(s) Transfusion History : Prior anesthesia without reaction Family History of Anesthesia Reaction : None Joselin Albert RN - 06/01/2020 10:19 EST Functional Assessment Functional ADL Evaluation Index EBN Bathing : Independent (2) Dressing : Independent (2) Toileting : Independent (2) Transferring Bed or Chair : Independent (2) Continence : Independent (2) Feeding : Independent (2) Joselin Albert RN - 06/01/2020 10:19 EST ADL Index Score : 12 Joselin Albert RN - 06/01/2020 10:19 EST Advance Directive Patient has Advance Directive *Q : Yes, Advance Directive not with the patient Advance Directive Type : Living will Copy Advance Directive Verified/on Chart : No Joselin Albert RN - 06/01/2020 10:19 EST Spiritual/Cultural Needs Cheondoism Preference : Presbyterian Joselin Albert RN - 06/01/2020 10:19 EST [place] Suicide Severity Rating Scale (C-SSRS) CSSRS Past Month Wish to be : No CSSRS Past Month Suicidal Thoughts : No CSSRS Lifetime Suicide Behavior : No Suicide Severity Rating Score : 0 Suicide Severity Rating : No Additional Care Required at this time Joselin Albert RN - 06/01/2020 10:19 EST Psychosocial History Do You Have a History of the Following? : Patient denies history Currently in Unsafe Situation : No Joselin Albert RN - 06/01/2020 10:19 EST Teaching/Learning Assessment Barriers To Learning : None evident Individuals Taught : Patient Readiness to Learn : Cooperative Baseline Knowledge of Topic : Limited Readiness to Learn : Explanation, Printed materials Learning Style Preferences Patient : None Learning Style Preferences Family : None Joselin Albert RN - 06/01/2020 10:19 EST Education Topics, Periop Preadmission Perioperative Education Grid CAUTI : Verbalizes understanding IV's : Verbalizes understanding NPO Status/Directions : Verbalizes understanding Pain Management : Verbalizes understanding Postoperative Care Preparations : Verbalizes understanding Preprocedure Preparations : Verbalizes understanding Preprocedure Tests/Labs : Verbalizes understanding Remove Body Piercings : Verbalizes understanding Responsible Adult : Verbalizes understanding Take/Hold Medications Pre-Procedure : Verbalizes understanding Joselin Albert RN - 06/01/2020 10:19 EST General Info Support Person/Pt Rep Name : Blaze Whitehead Family/Rep/Phys Notified of Admit : No Emergency Contact #1 : Blaze Lama Emergency Contact #1 Emergency Contact #1 Relationship : spouse Emergency Contact #2 : . Emergency Contact #2 Phone Number : . Emergency Contact #2 Relationship : . Primary Language : Slovak Preferred Communication Mode : Verbal Communication Barrier : None Gut Puller Needed : No Joselin Albert RN - 06/01/2020 10:19 EST Tristin Scale Tristin Sensory Perception : No impairment Tristin Moisture : Rarely moist Tristin Activity : Walks occasionally Tristin Mobility : Slightly limited Tristin Nutrition : Adequate Tristin Friction and Shear : No apparent problem Tristin Score : 20 Joselin Albert RN - 06/01/2020 10:19 EST Sleep Apnea Risk Assmt Hx of Obstructive Sleep Apnea Diagnosis : No Snore Loudly : Yes Tired, Fatigued, or Sleepy During Day : Yes Observed Stopping Breathing During Sleep : No Have/Are Being Treated for Hypertension : Yes BMI Greater Than 35 kg/m2 : No Age over 50 Years Old : Yes Gender Male : No Joselin Albert RN - 06/01/2020 10:19 EST documented in this encounter Plan of Treatment Not on file documented as of this encounter Visit Diagnoses Not on filedocumented in this encounter
--- OUTSIDE RECORDS SUMMARY | 2024-12-30 13:39 | XMS_ITS | Clinical Summary ---
Author Organization [employer] ([place], [place], [place], [place]) Address [address] [place] [address] Care Team Providers Care Bottom Polisher Name Role Phone Unavailable Primary Care Provider [...]
--- OUTSIDE RECORDS SUMMARY | 2024-12-30 13:39 | XMS_ITS | Encounter Summary ---
Author Organization [employer] ([place], [place], [place], [place]) Address [address] [place] [address] Care Team Providers Care Stem Setter Name Role Phone Unavailable Primary Care Provider Unavailabl e Encounter Details Date Type Department Care Team (Late st Contact Info) Description 06/01/2020 Transcribed Document [facility] Family Medicine [facility] [place] [address] ProviderLandry MD [address] [place] [address] Social History Tobacco Use Types Packs/Day [...] Cerner Conversion Note - Landry ProviderMD - 06/01/2020 9:37 AM SALES AND SERVICE OFFICER Patient: TANSEHA SALEEM Age: 75 Years Sex: Female : 1945 Chief Complaint Right Hip Pain Primary Care Provider JARRED CRUZ (REF)[facility] History of Present Illness This patient is a pleasant 75 yo WF who presents with right hip pain. The pain has been going on for a year but has gotten progressively worse. She describes it as a sharp pain. It is now to the point that it is affecting her ADLs. She has tried NSAIDs and injections without relief of her pain. She has not fallen. She has used a walker as an assistive device. She was seen at Dr Coyle's office and evaluated and it was determined that she has severe DJD affecting the right hip. Pt was offered a Right Total Hip Arthroplasty via Anterior Approach and agreed to the procedure. Pt denies a h/o DVT/PE. No trouble with anesthesia in the past. No respiratory conditions including COPD/LISETH/asthma. Review of Systems Constitutional: Neg for fevers or chills. Eyes: Neg for blurry vision or change in vision. ENT: Neg for sore throat, ear pain, or dizziness. Cardiac: Neg for chest pain or dyspnea on exertion. Respiratory: Neg for shortness of breath. Gastrointestinal: Neg for nausea, vomiting, diarrhea, or constipation. Musculoskeletal: Pos for right hip pain. Neurologic: Neg for headaches or seizures. Psychiatric: Neg for anxiety and depression. Integumentary: Neg for rash. Vital Signs T: 36.1 ??C HR: 65(Peripheral) RR: 16 BP: 114/65 SpO2: 97% HT: 170.18 cm WT: 75 kg BMI: 25.9 Oxygen Settings (Last) Oxygen Therapy Mode: Room air (06/01/20 10:15:00) Physical Exam Constitutional: This is a pleasant 75 yo WF, BMI 25.9, in no acute distress. HEENT: Normocephalic, atraumatic. PEERLA. Extraocular muscles intact. Conjunctiva pink without exudate. Oropharynx pink and moist. Neck supple. No JVD. Cardiac: SI, S2. RRR. No M/R/G. Respiratory: Lungs CTA bilaterally. No wheezes, rales, or rhonchi. Abdomen: Soft, nontender, nondistended. Active bowel sounds. No visible masses. Musculoskeletal: Right Hip Flexion 95, IR 5, ER 10. Integumentary: Skin is pink, warm and dry. No rashes. Neurologic: CN II-XII grossly intact. Psychiatric: Judgment and affect appropriate. Assessment/Plan 1. Preoperative Evaluation- Pt underwent preoperative laboratory workup and diagnostic studies. This included a medical evaluation from her PCP who provided her with clearance to proceed with surgery. 2. Right Hip Pain secondary to DJD- Proceed with surgery as scheduled with Dr Coyle on 06/15/2020. 3. Hypertension- Continue Bisoprolol and Lisinopril. 4. Hyperlipidemia- Continue Atorvastatin. 5. GERD- Continue Omeprazole. 6. Hypothyroidism- Continue Synthroid. 7. CAD- No intervention required. Pt received cardiac clearance from Emilia Salcedo. 8. H/o Colon Cancer 2002- S/p Mass Excision without chemo or radiation. BASED ON THIS INFORMATION, I FEEL THAT THIS PATIENT SHOULD REQUIRE OUTPATIENT HOSPITALIZATION UNLESS DEEMED OTHERWISE APPROPRIATE BY THE ORTHOPEDIC SURGEON GIVEN THE COMPLEXITY OF THE OPERATION. THIS PATIENT WILL BE A GREAT FAST TRACK CANDIDATE. Problem List/Past Medical History Ongoing Acid reflux Arthritis Cataracts, bilateral Colon polyps Diarrhea Hay fever Hot flashes Hypothyroid PR, old Procedure/Surgical History , colon polpys removed, heart cath no stint, left hip replacement, LTKA, open denise, RTKA, truma to left knee repair - no ACL in that knee. Home Medications (14) Active aspirin 81 mg, Oral, Daily atorvastatin 40 mg oral tablet 40 mg [...] Tab, Oral, Daily vitaminD2 1.25 mg, Weekly Allergies morphine (Itching) Social History Alcohol Alcohol Use History Yes. # Drinks/Day: 2. Use in Last 12 Months: Yes. Alcohol Use Frequency Daily. Alcohol Use History Yes. # Drinks/Day: 2. Total Drinks/Week: 14. Alcohol Use Frequency Daily. Nutrition/Health Regular Substance Abuse Drug Use Hx: No. Use in Last 12 Months: No. Tobacco Use in Last 12 Months: No. Smoking Status Never smoker. Family History Pt mother in her 80s with CHF. Pt father at 64 with cancer, unknown primary. [1] Diagnostic Results EKG- Sinus Rhythm, 73 CXR- NAD Lab Results WBCs- 4.2 Hbg- 11.4 Hct- 35.6 Plts- 166 Glucose- 84 Na- 139 K- 4.2 BUN- 17 Cr- 1.0 GFR- 54 Albumin- 6.5 Prealbumin- 30.1 Hbg A1C- 5.3 PT- 10.7 INR- 0.96 PTT- 23.4 Fructosamine- 217 [1] Preoperative H & P; Keily Marshall PA-C 04/06/2015 11:46 EST Electronically signed by Juventino, [facility] Conversion Coffee Maker Cerner at 08/27/2022 11:06 PM CDT documented in this encounter Plan of Treatment Not on file documented as of this encounter Visit Diagnoses Not on filedocumented in this encounter
--- OUTSIDE RECORDS SUMMARY | 2024-12-30 13:39 | XMS_ITS | Encounter Summary ---
Author Organization Healthcare Address [address] [place] [address] Care Team Providers Care Hot Header Operator Name Role Phone Jeffrey Schuster MD Primary Care Provider [phone] Reason for Visit * Reason Onset Date Comments HCN - Patient Message 12/30/2024 Encounter Details Date Type Department Care Team (Late st Contact Info) Description 12/30/2024 Telephone [facility] [address] [place] [address] Cassandra Diaz MD [address] [address] HCN - Patient Message Social History Tobacco Use Types Packs/Day Years Used Date Smoking Tobacco: Never Passive Smoke Exposure: Never Smokeless Tobacco: Never Alcohol Use Standard Drinks/Week Comments Yes 0 (1 standard drink = 0.6 oz pur e alcohol) Comments Unknown Sex and Gender Information Value Date Recorded Sex Assigned at Not on file Legal Sex Female 6:40 PM EDT Gender Identity Not on file Sexual Orientation Not on file documented as of this encounter Miscellaneous Notes * Telephone Encounter - Christy Muller - 12/30/2024 9:33 AM EDT Clinical Concern/Question Reason for Call: Patient had to cancel 12/31 appointment and needs to r/s Best contact number: [phone] (mobile) Optimal time of day to reach caller: ANYTIME Additional comments/information from caller: Note: Please do not reply to this message. Follow-up communication and further actions as a result of this message need to be communicated with the patient directly, if the patient is not active onMyChart. If the patient is active on MyChart, they will receive notification of the communication/outcome via MyChart. documented in this encounter Plan of Treatment Upcoming Encounters Date Type Department Care Team (Late st Contact Info) Description 01/13/2025 3:30 PM EDT Office Visit [facility] [address] [place] [address] Beto Kelly MD [address] [address] documented as of this encounter Visit Diagnoses Not on filedocumented in this encounter Additional Health Concerns Assessment Noted Time A fall risk assessment has been complete d for the patient 08/07/2024 2:53 PM EDT A Body Mass Index follow-up plan has been documented for the patient 08/07/2024 4:09 PM EDT documented as of this encounter Care Teams Hot Header Operator Relationship Specialty Start Date End Date Jeffrey Schuster MD [address] [place] [address] PCP - General 10/21/20 documented as of this encounter
--- OUTSIDE RECORDS SUMMARY | 2024-12-30 13:39 | XMS_ITS | Encounter Summary ---
Author Organization Healthcare Address [address] [place] [address] Care Team Providers Care Screen Cleaner Name Role Phone Jeffrey Schuster MD Primary Care Provider [phone] Encounter Details Date Type Department Care Team (Late Contact Info) Description 10/13/2024 Telephone [facility] [address] [place] [address] Cassandra Diaz MD [address] [address] Social History Tobacco Use Types Packs/Day Years [...] encounter Miscellaneous Notes * Telephone Encounter - Carley Raoms - 10/13/2024 1:33 PM EDT Triage Note 10/13/2024 1:34 PM Refill sent to preferred pharmacy on file. documented in this encounter Plan of Treatment Upcoming Encounters Date Type Department Care Team (Late Contact Info) Description 01/13/2025 3:30 PM EDT Office Visit [facility] [address] [place] [address] Beto Kelly MD [address] [address] documented as of this encounter Visit Diagnoses Not on filedocumented in this encounter Additional Health Concerns Assessment Noted Time A fall risk assessment has been complete d for the patient 08/07/2024 2:53 PM EDT A Body Mass Index follow-up plan has been documented for the patient 08/07/2024 4:09 PM EDT documented as of this encounter Care Teams Screen Cleaner Relationship Specialty Start Date End Date Jeffrey Schuster MD [address] [place] [address] PCP - General 10/21/20 documented as of this encounter
--- OUTSIDE RECORDS SUMMARY | 2024-12-30 13:39 | XMS_ITS | Encounter Summary ---
Author Organization Healthcare Address [address] [place] [address] Care Team Providers Care Curtains And Draperies Salesperson Name Role Phone Jeffrey Schuster MD Primary Care Provider [phone] Reason for Visit * Reason Comments Med Refill Encounter Details Date Type Department Care Team (Late Contact Info) Description 12/30/2021 Refill [facility] [address] [place] [address] Luis Clark, DO [address] [facility] [address] [place] [address] Social History Tobacco Use Types Packs/Day Years [...] Description 01/13/2025 3:30 PM EDT Office Visit [facility] [address] [place] [address] Beto Kelly MD 110 [facility] [address] [place] [address] documented as of this encounter Visit Diagnoses Not on filedocumented in this encounter Care Teams Curtains And Draperies Salesperson Relationship Specialty Start Date End Date Jeffrey Schuster MD [address] [place] [address] PCP - General 10/21/20 documented as of this encounter
--- OUTSIDE RECORDS SUMMARY | 2024-12-30 13:39 | XMS_ITS | Encounter Summary ---
Author Organization [employer] ([place], [place], [place], [place]) Address [address] [place] [address] Care Team Providers Care Chimney Repairer Name Role Phone Unavailable Primary Care Provider Unavailabl e Encounter Details Date Type Department Care Team (Late st Contact Info) Description 06/14/2020 Transcribed Document [facility] Medicine [facility] [place] [address] ProviderLandry MD [facility] [place] [address] Social History Tobacco Use Types [...] Conversion Note - Historical ProviderMD - 06/14/2020 1:41 PM AUTOMATIC SERGING MACHINE OPERATOR Meds to Bed Enrollment Entered On: 06/14/2020 13:41 EST Performed On: 06/14/2020 13:41 EST by Srinivas Allen, Pharmacist Meds to Bed Enrollment Patient Enrollment Decision: : Yes/enroll in meds to bed program Srinivas Allen Pharmacist - 06/14/2020 13:41 EST documented in this encounter Plan of Treatment Not on file documented as of this encounter Visit Diagnoses Not on filedocumented in this encounter
--- OUTSIDE RECORDS SUMMARY | 2024-12-30 13:39 | XMS_ITS | Encounter Summary ---
Author Organization Healthcare Address [address] [place] [address] Care Team Providers Care Product Development Specialist Name Role Phone Jeffrey Schuster MD Primary Care Provider [phone] Encounter Details Date Type Department Care Team (Late Contact Info) Description 11/25/2024 Telephone [facility] [address] [place] [address] Cassandra Diaz MD [address] [address] Social History Tobacco Use Types [...] Miscellaneous Notes * Telephone Encounter - Carley Ramos - 11/25/2024 10:27 AM EDT Triage Note 11/25/2024 10:28 AM Refill sent to preferred pharmacy on file. documented in this encounter Plan of Treatment Upcoming Encounters Date Type Department Care Team (Late Contact Info) Description 01/13/2025 3:30 PM EDT Office Visit [facility] [address] [place] [address] Beto Kelly MD [address] [address] documented as of this encounter Visit Diagnoses Not on filedocumented in this encounter Additional Health Concerns Assessment Noted Time A fall risk assessment has been complete d for the patient 08/07/2024 2:53 PM EDT A Body Mass Index follow-up plan has been documented for the patient 08/07/2024 4:09 PM EDT documented as of this encounter Care Teams Product Development Specialist Relationship Specialty Start Date End Date Jeffrey Schuster MD [address] [place] [address] PCP - General 10/21/20 documented as of this encounter
--- OUTSIDE RECORDS SUMMARY | 2024-12-30 13:39 | XMS_ITS | Encounter Summary ---
Author Organization [facility] Address [address] [place] [address] Care Team Providers Care Bus Operator Name Role Phone Jeffrey Schuster MD Primary Care Provider [phone] Encounter Details Date Type Department Care Team (Latest Contact Info) Description 12/25/2024 Travel Social History Tobacco Use Types Packs/Day Years [...] on file documented as of this encounter Plan of Treatment Upcoming Encounters Date Type Department Care Team (Late st Contact Info) Description 01/13/2025 3:30 PM EDT Office Visit [facility] [address] [place] [address] Beto Kelly MD [address] [address] documented as of this encounter Visit Diagnoses Not on filedocumented in this encounter Additional Health Concerns Assessment Noted Time A fall risk assessment has been complete d for the patient 08/07/2024 2:53 PM EDT A Body Mass Index follow-up plan has been documented for the patient 08/07/2024 4:09 PM EDT documented as of this encounter Care Teams Bus Operator Relationship Specialty Start Date End Date Jeffrey Schuster MD [address] [place] [address] PCP - General 10/21/20 documented as of this encounter
== END 2024-12-30 23:59 | disposition home or self-care (01) ==
LOC: RAD 13:33
PROVIDERS: PCP Family Medicine; Visit Provider Family Medicine
DX: Z12.31 Encounter for screening mammogram for malignant neoplasm of breast (principal); R92.323 Mammographic fibroglandular density, bilateral breasts
CPT/HCPCS: 77063; 77067

== ENCOUNTER 2025-02-17 08:28 | Outpatient (CLI) | payer MEDICARE, OTHER, SELFPAY ==
--- OUTSIDE RECORDS SUMMARY | 2025-01-13 08:35 | XMS_ITS | Encounter Summary ---
Author Organization [facility] Address [address] [place] [address] Care Team Providers Care Feed Handler Name Role Phone Jeffrey Schuster MD Primary Care Provider [phone] Encounter Details Date Type Department Care Team (Late st Contact Info) Description 01/13/2025 8:35 AM EDT Ancillary Procedure [facility] [address] [place] [address] Social History Tobacco Use Types Packs/Day [...] Care Team (Late st Contact Info) Description 03/26/2025 2:30 PM EST Office Visit [facility] [address] [place] [address] Beto Kelly MD [address] [address] Scheduled Procedures Name Priority Associated Diagnoses Date/Ti me EXTRACTION, CATARACT, EXTRACAPSULAR, WITH IOL INSERTION 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, 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 CANALOPLASTY, EYE 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, 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 To assess optic nerve function and for use in future follow-up. Reliability: good and adequate. Left Eye Images reviewed and comparison made to baseline. To assess optic nerve function and for use in future follow-up. Reliability: good and adequate. Notes OD - Polar thinning. Avg 60. OS - IT thinning, avg 78 us Beto Kelly MD OPHTH TOMOGRAPHY Final Resul t documented in this encounter Visit Diagnoses Not on filedocumented in this encounter Additional Health Concerns Assessment Noted Time A fall risk assessment has been complete d for the patient 08/07/2024 2:53 PM EDT A Body Mass Index follow-up plan has been documented for the patient 08/07/2024 4:09 PM EDT documented as of this encounter Care Teams Feed Handler Relationship Specialty Start Date End Date Jeffrey Schuster MD [address] [place] [address] PCP - General 10/21/20 documented as of this encounter
--- OUTSIDE RECORDS SUMMARY | 2025-01-13 15:30 | XMS_ITS | Encounter Summary ---
Author Organization Healthcare Address [address] [place] [address] Care Team Providers Care Graphics Manager Name Role Phone Jeffrey Schuster MD Primary Care Provider [phone] Encounter Details Date Type Department Care Team (Latest Contact Info) Description 01/13/2025 3:30 PM EDT Office Visit [facility] [address] [place] [address] Beto Kelly MD [address] [address] Capsular glaucoma with pseudoexfoliation of lens, bilateral, mild stage (Primary Dx); Mixed type age-related cataract, both eyes Social History Tobacco Use Types Packs/Day Years [...] as of this encounter Miscellaneous Notes * Progress Notes - Beto Kelly MD - 01/13/2025 3:30 PM EDT Assessment/Plan Diagnoses and all orders for this visit: Capsular glaucoma with pseudoexfoliation of lens, bilateral, mild stage - OCT, Optic Nerve - OU - Both Eyes Mixed type age-related cataract, both eyes - OCT, Optic Nerve - OU - Both Eyes 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 - open heavily pigmented angles, mildly thin pachymetry OU - HVF Jul 2024 OD: patchy depression OD > OS (MD -4.80 dB), reliability good, suspicious for progression, possible lenticular effect OS: minimal patchy depression(MD -2.39 dB), reliability good, likely stable - small congruous bitemporal depression? - RNFL 01/13/25 OD polar thinning avg 60, inf thinning OS avg 78 - RNFL 02/2024 OD: 57 um OS: 79 um - progressed OD - IOP today 18/16 on timolol BID and lumigan qhs OU (was last visit on timolol daily). CPM - rec GOAL IOP of 18 mmHg or less OU for now. - Cataracts now visually significant. Phaco/ABiC OD first Age-related combined form cataract, both eyes - See above IOL calcs repeated today, plan for OD - DCB00 22.00 (-0.30) +2.09 @ 009 OS - DCB00 22.50 (-0.11) +3.20 @ 171 +/- ring due to marginal dilation today in clinic [facility] Will call to discuss toric IOL and bring back for pentacam if interested. Social - Flonase nasal spray. Lives in [place], [place] (near [place]) Tobacco Use: Low Risk (01/13/2025) Patient History Smoking Tobacco Use: Never Smokeless Tobacco Use: Never Passive Exposure: Never The patient has been counseled on tobacco cessation: Not Applicable I saw and evaluated the patient with the resident/fellow. I discussed the case with the resident/fellow and agree with the findings and plan as documented. Beto Kelly MD documented in this encounter Plan of Treatment Upcoming Encounters Date Type Department Care Team (Late st Contact Info) Description 03/26/2025 2:30 PM EST Office Visit [facility] [address] [place] [address] Beto Kelly MD [address] [place] [address] Scheduled Procedures Name Priority Associated Diagnoses [...] t documented in this encounter Visit Diagnoses Diagnosis Capsular glaucoma with pseudoexfoliation of lens, bilateral, mild stage- Primary Mixed type age-related cataract, both eyes documented in this encounter Additional Health Concerns Assessment Noted Time A fall risk assessment has been complete d for the patient 08/07/2024 2:53 PM EDT A Body Mass Index follow-up plan has been documented for the patient 08/07/2024 4:09 PM EDT documented as of this encounter Care Teams Graphics Manager Relationship Specialty Start Date End Date Jeffrey Schuster MD [address] [facility] [place] [address] PCP - General 10/21/20 documented as of this encounter
--- OUTSIDE RECORDS SUMMARY | 2025-02-17 08:31 | XMS_ITS | Encounter Summary ---
Author Organization [employer] ([place], [place], [place], [place]) Address [address] [place] [address] Care Team Providers Care Monorail Hooker Name Role Phone Unavailable Primary Care Provider Unavailabl e Encounter Details Date Type Department Care Team (Late st Contact Info) Description 06/15/2020 Transcribed Document [facility] Family Medicine [facility] [place] [address] ProviderLandry MD [place] [address] Social History Tobacco Use Types [...] - Landry ProviderMD - 06/15/2020 8:58 AM SWING SAW OPERATOR [facility] Main OR PreOp Summary Primary Physician: RANDA DURAN MD-ORT Finalized Date/Time: 06/15/20 09:57:11 Pt. Name: TANESHA SALEEM/Sex: 1945 Female Med Rec #: [id number] Physician: RANDA DURAN MD-ORT Financial #: [id number] Pt. Type: O Room/Bed: Admit/Disch: 06/15/20 03:54:00 - Institution: [facility] PreOp Case Times Entry 1 In Preop 06/15/20 06:15:00 Ready for Holding 06/15/20 07:30:00 Room Patient Ready for 06/15/20 07:44:00 Surgery Patient Out of Preop 06/15/20 08:22:00 Patient Out of n/a Holding Room Last Modified By: LUIS EDUARDO BETHEA RN 06/15/20 09:57:02 SJMiko PreOp Case Times Audit 06/15/20 09:57:02 Admin Asst: CHAYO Modifier: ABEL <+> 1 Patient Out of Preop Finalized By: LUIS EDUARDO BETHEA, RN Document Signatures Signed By: LUIS EDUARDO BETHEA RN 06/15/20 09:57 Electronically signed by Juventino [facility] Conversion Medication Technician Cerner at 08/27/2022 11:26 PM CDT documented in this encounter Plan of Treatment Not on file documented as of this encounter Visit Diagnoses Not on filedocumented in this encounter
--- OUTSIDE RECORDS SUMMARY | 2025-02-17 08:31 | XMS_ITS | Encounter Summary ---
Author Organization [employer] ([place], [place], [place], [place]) Address [address] [place] [address] Care Team Providers Care Carpenter Supervisor Name Role Phone Unavailable Primary Care Provider Unavailabl e Encounter Details Date Type Department Care Team (Late st Contact Info) Description 06/15/2020 Transcribed Document [facility] [place] [facility] [place] [address] ProviderLandry MD [facility] [place] [address] Social History Tobacco Use Types [...] - Landry ProviderMD - 06/15/2020 12:32 PM TARGETEER [place] [id number] TANESHA SALEEM :1945 Visit Time:06/15/2020 What to do next Your Diagnosis Unilateral primary osteoarthritis, right hip, Unilateral primary osteoarthritis, right hip Instructions From Your Care Team [facility] for outpatient PT. Call and schedule an appointment in 2 weeks. Discharge Activity: Discharge Activity: Activity as tolerated Diet: Discharge Diet: Resume usual diet as tolerated Follow-Up Appointments Follow Up with SERGIO TROY When 07/27/2020 10:00 AM EDT Where: [address] [facility] 2ND FLOOR [place] [id number]- [facility] (1) Medications What How Much When Instructions [...] on the 3rd day after surgery. Use [employer] for showering. Incision area [...] activities are safe for you. ??? Take [id number] and prescription medicines only as told by [...] 08/06/2001 Document Revised: 05/03/2018 Document Reviewed: 12/14/2017 [employer] Patient Education ?? 2020 [employer]. Emergency Awareness and Preventative Care STROKE is [...] Assistance with quitting is available by contacting 8-859-UFNSNOW. This is a free resource providing counseling, [...] was given the opportunity to ask questions. Patient/Mammography Technician Name: Patient/Mammography Technician Signature: Relationship to Patient: Clinician/Hospital Mammography Technician Signature: Date: Electronically signed by Annita Jauregui Conversion Pipe Wrapping Machine Operator Nilesh at 08/27/2022 11:27 PM CDT documented in this encounter Plan of Treatment Not on file documented as of this encounter Visit Diagnoses Not on filedocumented in this encounter
--- OUTSIDE RECORDS SUMMARY | 2025-02-17 08:31 | XMS_ITS | Encounter Summary ---
Author Organization [employer] ([place], [place], [place], [place]) Address [address] [place] [address] Care Team Providers Care Upholstery Cleaner Name Role Phone Unavailable Primary Care Provider Unavailabl e Encounter Details Date Type Department Care Team (Late st Contact Info) Description 06/15/2020 Transcribed Document [facility] [place] [facility] [place] [address] [place]Landry [place] [address] Social History Tobacco Use Types [...] - Historical ProviderMD - 06/15/2020 7:24 AM MANAGER TRUST Pre Procedure Adult Entered On: 06/15/2020 7:29 EST Performed On: 06/15/2020 7:24 EST by Aga Wall RN Height and Weight, Clinical Dosing Height Source : Stated Height Entry Format : [place] Height, Feet : 5 ft(Converted to: 152 cm, 60 Inch) Height, Inches : 7 Inch(Converted to: 0 ft 7 Inch, 17.78 cm) Clinical Height : 170.18 cm Weight Source : Standing scale Weight Entry Format : [place] Clinical Dosing Weight : 75 kg Weight, Pounds : 165 lb Body Surface Area (BSA) : 1.86 m2 Body Mass Index : 25.9 kg/m2 (HI) [place] Body Weight : 61 kg Aga Wall [...] Where was the COVID-19 Testing completed? : [facility] Where are the test results? : In [...] Aga Wall RN - 06/15/2020 7:24 EST [place] Suicide Severity Rating Scale (C-SSRS) CSSRS Past [...] will Copy Advance Directive Verified/on Chart : Aga Gonzalez RN - 06/15/2020 7:24 EST Spiritual/Cultural Needs Any Spiritual/Cultural Needs or Requests : No Protestant Preference : Presbyterian Aga Wall RN - [...] #2 Relationship : . Primary Language : Bulgarian Preferred Communication Mode : Verbal Communication Barrier : None Computer Artist Needed : Aga Gonzalez RN - 06/15/2020 [...] Scale Risk Level : 0-24 Low Risk [place] Fall Interventions : Adequate lighting, Assistive devices [...] Darleen Best Motor Response : Obey commands [place] Best Verbal Response : Oriented [place] Eye Opening Response : Spontaneous Darleen Coma Score : 15 Aga Wall RN - 06/15/2020 7:24 EST documented in this encounter Plan of Treatment Not on file documented as of this encounter Visit Diagnoses Not on filedocumented in this encounter
--- OUTSIDE RECORDS SUMMARY | 2025-02-17 08:31 | XMS_ITS | Referral Summary ---
Author Organization [employer] ([place], [place], [place], [place]) Address [address] [place] [address] Care Team Providers Care Regulatory Compliance Engineer Name Role Phone Unavailable Primary Care Provider [...]
--- OUTSIDE RECORDS SUMMARY | 2025-02-17 08:32 | XMS_ITS | Encounter Summary ---
Author Organization [employer] ([place], [place], [place], [place]) Address [address] [place] [address] Care Team Providers Care Laboratory Specialist Name Role Phone Unavailable Primary Care Provider Unavailabl e Encounter Details Date Type Department Care Team (Late st Contact Info) Description 06/15/2020 Transcribed Document [facility] Family Medicine [facility] [place] [address] ProviderLandry MD [facility] [place] [address] Social History Tobacco Use Types [...] Conversion Note - Historical ProviderMD - 06/15/2020 2:04 PM LATHMAKER Final Discharge Planning Entered On: 06/15/2020 14:05 EST Performed On: 06/15/2020 14:04 EST by MARIAELENA CANNON RN Final Discharge Planning Discharge Arrangements : Patient Post-Acute Information Patient Name: TANESHA SALEEM Gender: Female : [birth year] Age: 75 Years [place] Referral(s): Service: Organization: Business Address: Phone Number: Home Care Physician Services [facility] [phone], [facility] [address], [place], [address] Patient Offered Choice/Affiliations Explained : [...] Final Narrative Note : [facility] home[facility] follow [facility]. No further CM needs identified. MARIAELENA CANNON RN - 06/15/2020 14:04 EST documented in this encounter Plan of Treatment Not on file documented as of this encounter Visit Diagnoses Not on filedocumented in this encounter
--- OUTSIDE RECORDS SUMMARY | 2025-02-17 08:32 | XMS_ITS | Encounter Summary ---
Author Organization [employer] ([place], [place], [place], [place]) Address [address] [place] [address] Care Team Providers Care Steam Frame Operator Name Role Phone Unavailable Primary Care Provider Unavailabl e Encounter Details Date Type Department Care Team (Late st Contact Info) Description 06/15/2020 Transcribed Document [facility] [place] [facility] [place] [address] ProviderLandry MD [facility] [place] [address] Social History Tobacco Use Types [...] - Landry ProviderMD - 06/15/2020 11:39 AM ELECTRICAL PROSPECTING ENGINEER Initial Discharge Planning Entered On: 06/15/2020 12:46 [...] and is iADLS PLAN: patient is using [facility] for HH and [facility]. Referrals faxed and Inez at [facility] and Amanda at [facility] notified of referrals. Patient going home on Asa for DVT Prophaylaxis. DME: Patient has a front rolling walker but carmen needing a bsc. States her bathroom is close to the bed. CM: No further CM needs identified. DOC: signed and placed in chart RRS: low TRANS: family will transport patient home. MARIAELENA CNANON RN - 06/15/2020 11:39 EST Electronically signed by Juventino [facility] Conversion Management Accountant Cerner at 08/27/2022 11:20 PM CDT documented in this encounter Plan of Treatment Not on file documented as of this encounter Visit Diagnoses Not on filedocumented in this encounter
--- OUTSIDE RECORDS SUMMARY | 2025-02-17 08:32 | XMS_ITS | Encounter Summary ---
Author Organization [employer] ([place], [place], [place], [place]) Address [address] [place] [address] Care Team Providers Care Travelers' Aid Worker Name Role Phone Unavailable Primary Care Provider Unavailabl e Encounter Details Date Type Department Care Team (Late st Contact Info) Description 06/15/2020 Transcribed Document [place] Family Medicine [facility] [place] [address] ProviderLandry MD [address] [place] [address] Social History Tobacco Use Types Packs/Day [...] - Historical Provider, - 06/15/2020 10:36 AM DIESEL FITTER MECHANIC Evaluation, Occupational Therapy Entered On: 06/15/2020 11:59 [...]
--- OUTSIDE RECORDS SUMMARY | 2025-02-17 08:32 | XMS_ITS | Encounter Summary ---
Author Organization [employer] ([place], [place], [place], [place]) Address [address] [place] [address] Care Team Providers Care Energy Manager Name Role Phone Unavailable Primary Care Provider Unavailabl e Encounter Details Date Type Department Care Team (Late st Contact Info) Description 06/15/2020 Transcribed Document [facility] [place] Medicine [facility] [place] [address] ProviderLandry MD [facility] [place] [address] Social History Tobacco Use Types [...] - Landry ProviderMD - 06/15/2020 8:58 AM TRACKWALKER [facility] OR PACU Summary Primary Physician: RANDA DURAN MD-ORT Finalized Date/Time: 06/15/20 11:14:46 Pt. Name: TANESHA SALEEM/Sex: 1945 Female Med Rec #: [id number] Physician: RANDA DURAN MD-ORT Financial #: [id number] Pt. Type: O Room/Bed: Admit/Disch: 06/15/20 03:54:00 - Institution: [facility] OR PACU Case Times Entry 1 In PACU I 06/15/20 10:02:00 Ready for PACU 06/15/20 10:32:00 Discharge Discharge from PACU 06/15/20 10:56:00 I Last Modified By: CHARLES Mead 06/15/20 10:54:34 [facility] Main OR PACU Case Times Audit 06/15/20 10:54:34 Head Of Precision Targeting: SAM Modifier: [email or web address] <+> 1 Discharge from PACU I 06/15/20 10:26:53 Head Of Precision Targeting: SAM Modifier: [email or web address] <+> 1 Ready for [...]
--- OUTSIDE RECORDS SUMMARY | 2025-02-17 08:32 | XMS_ITS | Encounter Summary ---
Author Organization Healthcare Address [address] [place] [address] Care Team Providers Care Registered Public Health Nurse Name Role Phone Jeffrey Schuster MD Primary Care Provider [phone] Reason for Visit * Reason Comments Med Refill Encounter Details Date Type Department Care Team (Late Contact Info) Description 12/26/2021 Refill [facility] [address] [place] [address] Marianne Brown, OD [address] [place] [address] Pseudoexfoliation (PXF) glaucoma, mild stage [...] Department Care Team (Late Contact Info) Description 03/26/2025 2:30 PM EST Office Visit [facility] [address] [place] [address] Beto Kelly MD [address] [place] [address] Scheduled Procedures Name Priority Associated Diagnoses Date/Ti me EXTRACTION, CATARACT, EXTRACAPSULAR, WITH IOL INSERTION 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
--- OUTSIDE RECORDS SUMMARY | 2025-02-17 08:32 | XMS_ITS | Encounter Summary ---
Author Organization [employer] ([place], [place], [place], [place]) Address [address] [place] [address] Care Team Providers Care Segment Block Layer Name Role Phone Unavailable Primary Care Provider Unavailabl e Encounter Details Date Type Department Care Team (Late st Contact Info) Description 06/15/2020 Transcribed Document [facility] [place] [facility] [place] [address] ProviderLandry MD [address] [place] [address] Social History Tobacco Use Types Packs/Day [...] - Landry ProviderMD - 06/15/2020 8:58 AM FIELD APPLICATIONS SPECIALIST [facility] Main OR PostOp Summary Primary Physician: RANDA DURAN MD-ORT Finalized Date/Time: 06/15/20 13:04:41 Pt. Name: TANESHA SALEEM/Sex: 1945 Female Med Rec #: [id number] Physician: RANDA DURAN MD-ORT Financial #: [id number] Pt. Type: O Room/Bed: Admit/Disch: 06/15/20 03:54:00 - Institution: [facility] Main OR PostOp Case Times Entry 1 In PACU II 06/15/20 10:56:00 Ready for PACU II 06/15/20 13:00:00 Discharge Discharge from PACU 06/15/20 13:00:00 II Last Modified By: MINO MCCOY RN 06/15/20 13:04:38 Finalized By: MINO MCCOY, RN Document Signatures Signed By: MINO MCCOY RN 06/15/20 13:04 Electronically signed by Juevntino [facility] Conversion Aircraft Mechanic Cerner at 08/27/2022 11:04 PM CDT documented in this encounter Plan of Treatment Not on file documented as of this encounter Visit Diagnoses Not on filedocumented in this encounter
--- OUTSIDE RECORDS SUMMARY | 2025-02-17 08:32 | XMS_ITS | Encounter Summary ---
Author Organization [employer] ([place], [place], [place], [place]) Address [address] [place] [address] Care Team Providers Care Supervisor Brooder Farm Name Role Phone Unavailable Primary Care Provider Unavailabl e Encounter Details Date Type Department Care Team (Late st Contact Info) Description 06/15/2020 Transcribed Document [facility] [place] [facility] [place] [address] ProviderLandry MD [facility] [place] [address] Social History Tobacco Use Types [...] - Historical Provider, - 06/15/2020 2:03 PM JAVA SOFTWARE ENGINEER On Going Discharge Planning Entered On: 06/15/2020 14:04 EST Performed On: 06/15/2020 14:03 EST by MARIAELENA CANNON, CAPO Care Management Progress Note Discharge Arrangements : Patient Post-Acute Information Patient Name: TANESHA SALEEM Gender: Female : [birth year] Age: 75 Years Gamal Referral(s): Service: Organization: Business Address: Phone Number: Home Care Physician Services [facility] [address], [facility] [address], [place], [address] Discharge Options Discussed with Patient [...] - 06/15/2020 14:03 EST Electronically signed by [facility], [facility] Conversion Classifying Machine Operator Cerner at 08/27/2022 11:15 PM CDT documented in this encounter Plan of Treatment Not on file documented as of this encounter Visit Diagnoses Not on filedocumented in this encounter
--- OUTSIDE RECORDS SUMMARY | 2025-02-17 08:32 | XMS_ITS | Encounter Summary ---
Author Organization Healthcare Address [address] [place] [address] Care Team Providers Care Active Directory Specialist Name Role Phone Jeffrey Schuster MD Primary Care Provider [phone] Reason for Referral * Consultation (Routine) - Closed Specialty Diagnoses / Procedures Referred By Parker t Referred To Contact Endocrinology Diagnoses Nontoxic single thyroid nodule Low thyroid stimulating hormone (TSH) level Dalia Adame PA [address] [place] [address] Phone: tel: fax: [facility] [address] [place] [address] Phone: tel: fax: Referral ID Status Reason Start Date Expiration Date V isits Requested Visits Authorized [id number] Closed Specialty Services Required 10/14/2021 04/15/2023 1 1 Encounter Details Date Type Department Care Team (Late st Contact Info) Description 10/14/2021 Community [facility] [address] [place] [address] Dalia Adame PA [address] [place] [address] Nontoxic single thyroid nodule (Primary [...] Description 03/26/2025 2:30 PM EST Office Visit [facility] [address] [place] [address] Beto Kelly MD [address] [address] Scheduled Procedures Name Priority Associated Diagnoses Date/Ti me EXTRACTION, CATARACT, EXTRACAPSULAR, WITH IOL INSERTION 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, 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 CANALOPLASTY, EYE 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, 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 Scheduled Referrals Name Type Priority Associated Diagnoses Order Schedule Ambulatory referral to Endocrinology Outpatient Referral Routine Nontoxic single thyroid nodule Low thyroid stimulating hormone (TSH) level Expected: 10/14/2021 (Approximate), Expires: 01/14/2022 documented as of this encounter Visit Diagnoses Diagnosis Nontoxic single thyroid nodule- Primary Nontoxic uninodular goiter Low thyroid stimulating hormone (TSH) level documented in this encounter Care Teams Active Directory Specialist Relationship Specialty Start Date End Date Jeffrey Schuster MD [address] [place] [address] PCP - General 10/21/20 documented as of this encounter
--- OUTSIDE RECORDS SUMMARY | 2025-02-17 08:32 | XMS_ITS | Encounter Summary ---
Author Organization [employer] ([place], [place], [place], [place]) Address [address] [place] [address] Care Team Providers Care Chief Counsel Name Role Phone Unavailable Primary Care Provider Unavailabl e Encounter Details Date Type Department Care Team (Late st Contact Info) Description 06/15/2020 Transcribed Document [facility] [place] [facility] [place] [address] ProviderLandry MD [facility] [place] [address] Social History Tobacco Use Types [...] - Historical ProviderMD - 06/15/2020 12:28 PM CIRCUIT BREAKER SUPERVISOR Patient Education Materials Follows: Dr. Coyle???s ATHA [...] on the 3rd day after surgery. Use [employer] for showering. Incision area [...] activities are safe for you. ??? Take isld-grk-qsobdkm and prescription medicines only as told by [...] Reviewed: 12/14/2017 Elsevier Patient Education ? 2020 [employer] documented in this encounter Plan of Treatment Not on file documented as of this encounter Visit Diagnoses Not on filedocumented in this encounter
--- OUTSIDE RECORDS SUMMARY | 2025-02-17 08:32 | XMS_ITS | Encounter Summary ---
Author Organization [employer] ([place], [place], [place], [place]) Address [address] [place] [address] Care Team Providers Care Hardware Assembler Name Role Phone Unavailable Primary Care Provider Unavailabl e Encounter Details Date Type Department Care Team (Late st Contact Info) Description 06/15/2020 Transcribed Document [facility] [place] [facility] [place] [address] ProviderLandry MD [facility] [place] [address] Social History Tobacco Use Types [...] - Landry ProviderMD - 06/15/2020 8:58 AM PROGRAMMER [facility] Main OR IntraOp Summary Primary Physician: RANDA DURAN MD-ORT Finalized Date/Time: 06/15/20 15:36:35 Pt. Name: TANESHA SALEEM D.O.B./Sex: 1945 Female Med Rec #: [id number] Physician: RANDA DURAN MD-ORT Financial #: [id number] Pt. Type: O Room/Bed: Admit/Disch: 06/15/20 03:54:00 - Institution: [facility] IntraOp Case Attendance Entry 1 Entry 2 Entry 3 Case Attendee RANDA DURAN Kiebler, Rachael A, RN LEVITSKY, BENJAMIN P MD-ORT Role Performed Surgeon/Proceduralist, Youth Development Professional, First Scrub, First First Time In 06/15/20 [...] CSA BRUNER, HAVEN Role Performed Scrub, Second Ornamental Metal Worker Apprentice, First Tool Grinder Operator Surface Time In 06/15/20 08:29:00 06/15/20 08:29:00 06/15/20 08:29:00 Time Out 06/15/20 10:01:00 06/15/20 10:01:00 06/15/20 10:01:00 Procedure Hip Total Anterior Hip Total Anterior Hip Total Anterior Approach(Right) Approach(Right) Approach(Right) Other Attendee Superficial Wound Closed By: Last Modified By: Mony Summesr RN Kiebler, Rachael A, Mony Ornelas, CAPO 06/15/20 10:05:17 06/15/20 10:05:17 06/15/20 10:05:17 Entry 7 Entry 8 Entry 9 Case Attendee JOSEPH MCCARTY V, OTHER, ATTENDEE #1 JENNIE GARZA PA-C SUPERVISOR WET POUR-ANS Role Performed SUPERVISOR WET POUR/Nurse Soa Architect Vendor Physician diploma medical assistant Time In 06/15/20 08:29:00 06/15/20 08:29:00 [...] OTHER, ATTENDEE #2 Role Performed Cell Saver Behavioral Sciences Instructor Time In 06/15/20 08:29:00 Time Out 06/15/20 10:01:00 Procedure Hip Total Anterior Approach(Right) Other Attendee elana moreno Superficial Wound Closed By: Last Modified By: Mony Summers RN 06/15/20 10:05:17 [facility] IntraOp Case Attendance Audit 06/15/20 10:05:17 Campaign Marketing Specialist: [id number] Modifier: [id number] <+> Time Out 1 <*> Procedure [...] Procedure Hip Total Anterior Approach(Right) 06/15/20 09:06:11 Campaign Marketing Specialist: [id number] Modifier: [id number] <+> 10 Case Attendee <+> 10 Role Performed <+> 10 Procedure <+> 10 Other Attendee 06/15/20 09:00:57 Campaign Marketing Specialist: [id number] Modifier: [id number] <+> 1 Procedure 2 <*> Procedure Hip [...] Procedure Hip Total Anterior Approach(Right) 06/15/20 09:00:50 Campaign Marketing Specialist: [id number] Modifier: [id number] <+> 1 Time In 2 <+> Time [...] [facility] IntraOp Case Times Audit 06/15/20 10:05:11 Campaign Marketing Specialist: [id number] Modifier: [id number] <+> 1 Out Room Time <+> 1 Stop Time 06/15/20 10:01:14 Campaign Marketing Specialist: [id number] Modifier: [id number] <+> 1 Stop Time [facility] IntraOp Cautery [...] RN 06/15/20 09:01:03 [facility] IntraOp General Case Can Carrier 1 Case Information OR OR 06 E Case Level 1 Room Verified Yes Wound Class I - Clean Specialty SN Orthopedic Anesthesia Type General ASA Class 3 Diagnosis Preop Diagnosis osteoarthritis right hip Postop Same As Preop No Postop Diagnosis see md notes Last Modified By: Mony Summers RN 06/15/20 09:01:52 [facility] IntraOp General Case Data Audit 06/15/20 09:01:52 Campaign Marketing Specialist: [id number] Modifier: [id number] <+> 1 ASA Class <+> 1 Anesthesia [...] PC GRP HEAD FEM 36MM 03.5MM Identification [id number] Description Implant Quantity 1 1 1 Implant Site right hip right hip right hip Implant Identification Model Number Implant [id number] Identification Serial Number Implant Identification Lot Number Implant Exactech Exactech Exactech Identification Hospitality Job Titles Name: Implant [id number] Identification Catalog Number Implant Size Implant Has an Yes Yes Yes Expiration Date Implant Expiration 04/04/25 04/29/30 03/21/25 Date Wasted Radioactive Material Time Implanted Tissue Implant Continue for Tissue Implant Documentation Tissue Identification Number Graft Prep Per Hospitality Job Titles Instructions: Tissue Preparation Method: Reconstitution Solution: Reconstitution Solution Lot Number Reconstitution Solution Expiration Date: Thawing Solution Thawing Solution Lot Number Thawing Solution Expiration Date Preparation Materials, Other Preparation Materials, Other Lot Number Preparation Materials, Other Expiration Date Tissue Prepared/Processed By Hospitality Job Titles Paperwork Completed Implant Type Comment Last Modified By: Mony Summers RN Kiebler, Rachael A, RN Kiebler, Rachael A, RN 06/15/20 09:16:43 06/15/20 09:16:43 06/15/20 09:43:07 Entry 4 Type Implant (Synthetic) Implant Log Implant Type Hardware Tissue Implant Type Implant STEM FEM ALTEON SEE SZ 4 Identification [id number] Description Implant Quantity 1 Implant Site right hip Implant Identification Model Number Implant [id number] Identification Serial Number Implant Identification Lot Number Implant Exactech Identification Hospitality Job Titles Name: Implant [id number] Identification Catalog Number Implant Size Implant Has an Yes Expiration Date Implant Expiration 03/02/25 Date Wasted Radioactive Material Time Implanted Tissue Implant Continue for Tissue Implant Documentation Tissue Identification Number Graft Prep Per Hospitality Job Titles Instructions: Tissue Preparation Method: Reconstitution Solution: Reconstitution Solution Lot Number Reconstitution Solution Expiration Date: Thawing Solution Thawing Solution Lot Number Thawing Solution Expiration Date Preparation Materials, Other Preparation Materials, Other Lot Number Preparation Materials, Other Expiration Date Tissue Prepared/Processed By Hospitality Job Titles Paperwork Completed Implant Type Comment Last Modified By: Mony Summers RN 06/15/20 09:43:07 [facility] IntraOp Implant Log Audit 06/15/20 09:43:07 Campaign Marketing Specialist: [id number] Modifier: [id number] <+> 3 Implant Identification Description <+> 3 Implant Identification Serial Number <+> 3 Implant Identification Hospitality Job Titles Name: <+> 3 Implant Expiration Date <+> 3 Implant Site <+> 3 Implant Quantity <+> 3 Implant Identification Catalog Number <+> 3 Implant Type <+> 3 Implant Has an Expiration Date <+> 3 Type <+> 4 Implant Identification Description <+> 4 Implant Identification Serial Number <+> 4 Implant Identification Hospitality Job Titles Name: <+> 4 Implant Expiration Date <+> [...] [facility] IntraOp Intraoperative Assessment Audit 06/15/20 09:02:22 Campaign Marketing Specialist: [id number] Modifier: [id number] <+> 1 Intraoperative Assessment Comment 06/15/20 09:02:01 Campaign Marketing Specialist: [id number] Modifier: [id number] <+> 1 Level of Consciousness (WDL = [...] vancomycin 1Gm vial - CLONIDINE-10ML 1000MG/10 ML [id number] Combo Med List 1 - Combo Med [...] w/ CLONIDINE-10ML epinephrine 1:100,000 20ml vial - [id number] Combo Med List 3 - Combo Med [...] JOSE MANUEL BROWNING, [place], [place], JOSEPH Brennan, SUPERVISOR WET POUR-ANS Position Verified Positioning Yes Verified by Anesthesia [...] Warming Measures Yes Taken Last Modified By: Mnoy Summers RN 06/15/20 09:04:52 [facility] Intra Op [...] Intra Op Sign Out Audit 06/15/20 10:05:30 Campaign Marketing Specialist: [id number] Modifier: [id number] <+> 1 RN Sign Out Signature Date/Time [...] [facility] IntraOp Surgical Procedures Audit 06/15/20 10:01:16 Campaign Marketing Specialist: [id number] Modifier: [id number] <+> 1 Stop [facility] IntraOp Temp Regulation Devices Entry 1 Temp Regulation Temperature Forced Air Warming Regulation Device device Temperature Upper body Regulation Site Temperature JOSEPH MCCARTY V, Regulation Device SUPERVISOR WET POUR-ANS Applied by Last Modified By: Mony Summers [...] Fluoroscopy Fluoroscopy Type C-Arm Site OPERATIVE SITE Air Reduction Equipment Operator Name JOANIE, SYLVAIN Protective Devices Yes Used [...] 06/15/20 12:28 ABDIEL Chart Audit 06/15/20 14:32 [id number] Correct Documentation 06/15/20 15:36 [id number] Correct Documentation Electronically signed by Juventino [facility] Conversion Heavy Repairer Cerner at 08/27/2022 11:15 PM CDT documented in this encounter Plan of Treatment Not on file documented as of this encounter Visit Diagnoses Not on filedocumented in this encounter
--- OUTSIDE RECORDS SUMMARY | 2025-02-17 08:32 | XMS_ITS | Encounter Summary ---
Author Organization [employer] ([place], [place], [place], [place]) Address [address] [place] [address] Care Team Providers Care Board Catcher Name Role Phone Unavailable Primary Care Provider Unavailabl e Encounter Details Date Type Department Care Team (Late st Contact Info) Description 06/15/2020 Transcribed Document [facility] [place] [facility] [address] ProviderLandry MD [address] [place] [address] Social History Tobacco Use Types Packs/Day [...] - Historical Provider, - 06/15/2020 10:36 AM TRACK WORKER Evaluation, Physical Therapy Entered On: 06/15/2020 12:52 [...]
--- OUTSIDE RECORDS SUMMARY | 2025-02-17 08:32 | XMS_ITS | Encounter Summary ---
Author Organization [employer] ([place], [place], [place], [place]) Address [address] [place] [address] Care Team Providers Care Crown Wheel Assembler Name Role Phone Unavailable Primary Care Provider Unavailabl e Encounter Details Date Type Department Care Team (Late st Contact Info) Description 06/14/2020 Transcribed Document [facility] [place] [facility] [place] [address] ProviderLandry MD [facility] [place] [address] Social History Tobacco Use Types [...] - Historical ProviderMD - 06/14/2020 2:47 PM TANNERY WORKER Patient: TANESHA SALEEM Age: 75 Years Sex: [...]
--- OUTSIDE RECORDS SUMMARY | 2025-02-17 08:32 | XMS_ITS | Encounter Summary ---
Author Organization [employer] ([place], [place], [place], [place]) Address [address] [place] [address] Care Team Providers Care Piping Manager Name Role Phone Unavailable Primary Care Provider Unavailabl e Encounter Details Date Type Department Care Team (Late st Contact Info) Description 06/15/2020 Transcribed Document [facility] [place] [facility] [place] [address] ProviderLandry MD [facility] [place] [address] Social History Tobacco Use Types [...] - Landry ProviderMD - 06/15/2020 11:22 AM STOCK REPLENISHER Patient: TANESHA SALEEM Age: 75 years Sex: Female : 1945 Associated Diagnoses: None Author: KG KEITH MD-INT Date of admission 06/15/2020 11: 03 AM Date of consult 07/03/2020 PCP Jeffrey Schuster MD [facility], internal medicine, Kg Keith MD Reason for the consult, postoperative medical management Surgery See operative report dictated by Dr. Elliott Admitting diagnosis 1???unilateral primary osteoarthritis right hip 2???s/p R DANIELA through anterior approach 3???right hip pain 4???CAD s/p [place] 5???HTN 6???HLP 7???hypothyroidism 8???GERD 9???at risk for [...] Oral, Q4H phenol 1.4% throat spray 5 [place], Oral, Q2H promethazine 25 mg tab 12.5 [...] polyps Diarrhea Hay fever Hot flashes Hypothyroid [place], old Histories Family History: Family history is [...] swelling, No deformity, Normal gait. Integumentary: Warm, [place], Intact, No pallor, No rash, WOUND STABLE. [...] anterior approach 3-right hip pain 4-CAD s/p [place] 5-HTN 6-HLP 7-hypothyroidism -8 GERD 9-at risk [...] then you may give Tylenol 650 mg PO/WI x 1. If no response in 2 [...]
--- OUTSIDE RECORDS SUMMARY | 2025-02-17 08:32 | XMS_ITS | Encounter Summary ---
Author Organization Healthcare Address [address] [place] [address] Care Team Providers Care Fretted Instrument Maker Hand Name Role Phone Jeffrey Schuster MD Primary Care Provider [phone] Encounter Details Date Type Department Care Team (Latest Contact Info) Description 01/06/2025 Travel Social History Tobacco Use Types Packs/Day [...] Description 03/26/2025 2:30 PM EST Office Visit [facility] [address] [place] [address] Beto Kelly MD [address] [address] Scheduled Procedures Name Priority Associated [...] documented as of this encounter Care Teams Fretted Instrument Maker Hand Relationship Specialty Start Date End Date Jeffrey Schuster MD [address] [place] [address] PCP - General 10/21/20 documented as of this encounter
--- OUTSIDE RECORDS SUMMARY | 2025-02-17 08:33 | XMS_ITS | Encounter Summary ---
Author Organization [employer] ([place], [place], [place], [place]) Address [address] [place] [address] Care Team Providers Care Monomer Purification Operator Name Role Phone Unavailable Primary Care Provider Unavailabl e Encounter Details Date Type Department Care Team (Late st Contact Info) Description 06/01/2020 Transcribed Document [facility] Family Medicine [facility] [place] [address] ProviderLandry MD [address] [place] [address] Social History Tobacco Use Types Packs/Day [...] - Landry ProviderMD - 06/01/2020 9:37 AM OPERATIONS PROGRAM MANAGER Patient: TANESHA SALEEM Age: 75 Years Sex: Female : 1945 Chief Complaint Right Hip Pain Primary Care Provider JARRED CRUZ (REF)[facility] History of Present Illness This patient is [...] polyps Diarrhea Hay fever Hot flashes Hypothyroid [place], old Procedure/Surgical History , colon polpys removed, [...] 04/06/2015 11:46 EST Electronically signed by Juventino, [facility] Conversion Litigation Counsel Cerner at 08/27/2022 11:06 PM CDT documented in this encounter Plan of Treatment Not on file documented as of this encounter Visit Diagnoses Not on filedocumented in this encounter
--- OUTSIDE RECORDS SUMMARY | 2025-02-17 08:33 | XMS_ITS | Encounter Summary ---
Author Organization [employer] ([place], [place], [place], [place]) Address [address] [place] [address] Care Team Providers Care Executive Producer Name Role Phone Unavailable Primary Care Provider Unavailabl e Encounter Details Date Type Department Care Team (Late st Contact Info) Description 06/14/2020 Transcribed Document [facility] [place] Family Medicine [facility] [place] [address] ProvideraLndry MD [facility] [place] [address] Social History Tobacco Use Types [...] - Historical ProviderMD - 06/14/2020 1:41 PM CLAM GRADER Meds to Bed Enrollment Entered On: 06/14/2020 13:41 EST Performed On: 06/14/2020 13:41 EST by Srinivas Allen, Pharmacist Meds to Bed Enrollment Patient Enrollment Decision: : Yes/enroll in meds to bed program Srinivas Allen Pharmacist - 06/14/2020 13:41 EST Electronically signed by Annita Jauregui Conversion Business Systems Consultant [employer] at 08/27/2022 11:02 PM CDT documented in this encounter Plan of Treatment Not on file documented as of this encounter Visit Diagnoses Not on filedocumented in this encounter
--- OUTSIDE RECORDS SUMMARY | 2025-02-17 08:33 | XMS_ITS | Encounter Summary ---
Author Organization Healthcare Address [address] [place] [address] Care Team Providers Care Human Services Professional Name Role Phone Jeffrey Schuster MD Primary Care Provider [phone] Reason for Visit * Reason Comments Med Refill Encounter Details Date Type Department Care Team (Late Contact Info) Description 12/30/2021 Refill [facility] [address] [place] [address] Luis Clark, DO [address] [facility] [address] [place] [address] Social History Tobacco Use Types [...] Description 03/26/2025 2:30 PM EST Office Visit [facility] [address] [place] [address] Beto Kelly MD [address] [place] [address] Scheduled Procedures Name Priority Associated [...] on filedocumented in this encounter Care Teams Human Services Professional Relationship Specialty Start Date End Date Jeffrey Schuster MD [address] [place] [address] PCP - General 10/21/20 documented as of this encounter
--- OUTSIDE RECORDS SUMMARY | 2025-02-17 08:33 | XMS_ITS | Encounter Summary ---
Author Organization [employer] ([place], [place], [place], [place]) Address [address] [place] [address] Care Team Providers Care Capping Machine Operator Name Role Phone Unavailable Primary Care Provider Unavailabl e Encounter Details Date Type Department Care Team (Late st Contact Info) Description 06/01/[address] 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 Adult Entered On: 06/01/2020 10:17 EST [...] Source : Stated Height Entry Format : [place] Height, Feet : 5 ft(Converted to: 152 cm, 60 Inch) Height, Inches : 7 Inch(Converted to: 0 ft 7 Inch, 17.78 cm) Clinical Height : 170.18 cm Weight Source : Standing scale Weight Entry Format : [place] Clinical Dosing Weight : 75 kg Weight, Pounds : 165 lb Body Surface Area (BSA) : 1.86 m2 Body Mass Index : 25.9 kg/m2 (HI) [place] Body Weight : 61 kg Joselin Albert [...] RN - 06/01/2020 10:19 EST Spiritual/Cultural Needs Alevism Preference : Presbyterian Joselin Albert RN - 06/01/2020 10:19 EST [place] Suicide Severity Rating Scale (C-SSRS) CSSRS Past [...] #2 Relationship : . Primary Language : Citizen Of [place] Preferred Communication Mode : Verbal Communication Barrier : None Tactical Response Group Officer Needed : No Joselin Albert RN - [...]
--- OUTSIDE RECORDS SUMMARY | 2025-02-17 08:33 | XMS_ITS | Encounter Summary ---
Author Organization Healthcare Address [address] [place] [address] Care Team Providers Care Pheresis Nurse Name Role Phone Jeffrey Schuster MD Primary Care Provider [phone] Encounter Details Date Type Department Care Team (Latest Contact Info) Description 01/13/2025 Travel Social History Tobacco Use Types Packs/Day [...] Description 03/26/2025 2:30 PM EST Office Visit [facility] [address] [place] [address] Beto Kelly MD [address] [address] Scheduled Procedures Name Priority Associated [...] documented as of this encounter Care Teams Pheresis Nurse Relationship Specialty Start Date End Date Jeffrey Schuster MD [address] [place] [address] PCP - General 10/21/20 documented as of this encounter
--- OUTSIDE RECORDS SUMMARY | 2025-02-17 08:34 | XMS_ITS | Encounter Summary ---
Author Organization Healthcare Address [address] [place] [address] Care Team Providers Care Sales Incentive Analyst Name Role Phone Jeffrey Schuster MD Primary Care Provider [phone] Encounter Details Date Type Department Care Team [...] Description 03/26/2025 2:30 PM EST Office Visit [facility] [address] [place] [address] Beto Kelly MD [address] [address] Scheduled Procedures Name Priority Associated [...] documented as of this encounter Care Teams Sales Incentive Analyst Relationship Specialty Start Date End Date Jeffrey Schuster MD [address] [place] [address] PCP - General 10/21/20 documented as of this encounter
--- OUTSIDE RECORDS SUMMARY | 2025-02-17 08:34 | XMS_ITS | Clinical Summary ---
Author Organization [employer] ([place], [place], [place], [place]) Address [address] [place] [address] Care Team Providers Care Local Driver Name Role Phone Unavailable Primary Care Provider [...]
--- OUTSIDE RECORDS SUMMARY | 2025-02-17 08:34 | XMS_ITS | Clinical Summary ---
Author Organization Healthcare Address [address] 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, bilateral, 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 Aftercare following joint replacement surgery CAD (coronary [...] Presence of right artificial knee joint 05/14/19 Hypothyroidism 05/14/2020 Thyroid disorder 02/11/2015 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 Resolved Problems Problem Noted Date Diagnosed Date Resolved Date Mixed type age-related cataract, both eyes 07/07/2015 02/01/2025 Bilateral presbyopia 07/07/2015 025 Regular astigmatism, bilateral 07/07/2015 02/01/2025 Encounters Date Type Department Care Team Description 01/13/2025 3:30 PM EDT Office Visit [facility] [address] [place] [phone] Beto Kelly MD Capsular glaucoma with pseudoexfoliation of lens, bilateral, mild stage (Primary Dx); Mixed type age-related cataract, both eyes 01/13/2025 8:35 AM EDT Ancillary Procedure [facility] [address] [place] [address] 01/13/2025 Travel 01/06/2025 Travel 12/30/2024 Telephone [facility] [address] [place] [phone] Cassandra Diaz MD HCN - Patient Message 12/25/2024 Travel 11/25/2024 Telephone [facility] [address] [place] [phone] Cassandra Diaz MD from Last 3 Months [...] Description 03/26/2025 2:30 PM EST Office Visit [facility] [address] [place] [address] Beto Kelly MD [address] [address] Scheduled Procedures Name Priority Associated Diagnoses Date/Ti me EXTRACTION, CATARACT, EXTRACAPSULAR, WITH IOL INSERTION 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, 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 CANALOPLASTY, EYE 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, 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 Health Maintenance Due Date Last Done Comments [facility]-Bone Density Scan 1943 [facility]-Depression Screening 1943 [facility]-Medicare Annual Wellness (AWV) 1943 [facility]-/Child/Adol SDOH Screenings 1945 Y- SDOH Screenings 1961 [facility]-Adult SDOH Screenings 1961 [facility]-DTaP,Tdap,and Td Vaccines (1 - Tdap) 1962 [id number] Vaccine (9 - Pfizer risk season) 2025 02/01/2024, 10/22/2023, 02/16/2023, Additional history exists [facility]-RSV Vaccine: 60+ Years or Completed 02/06/2023 [facility]-Pneumococcal Vaccine: 50+ Years Completed 08/12/2024, 02/07/2017 [facility]-Zoster Vaccines Completed 08/12/2024, [facility]-Influenza Vaccine Completed 01/06/2025 , 02/07/2024, 02/06/2023, Additional history exists HPV Vaccines Aged Out No longer eligi [...] on patient's age to complete this topic Procedures Procedure Name Priority Date/Time Associated Diagnosis Comments OCT, OPTIC NERVE - OU - BOTH EYES Routine 01/13/2025 4:25 PM EDT Capsular glaucoma with pseudoexfoliation of lens, bilateral, 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
--- OUTSIDE RECORDS SUMMARY | 2025-02-17 08:34 | XMS_ITS | Encounter Summary ---
Author Organization Healthcare Address [address] [place] [address] Care Team Providers Care Guest Services Associate Name Role Phone Jeffrey Schuster MD Primary Care Provider [phone] Encounter Details Date Type Department Care Team (Late Contact Info) Description 11/25/2024 Telephone [facility] [address] [place] [address] Cassandra Diaz MD [address] [address] Social History Tobacco Use Types [...] Description 03/26/2025 2:30 PM EST Office Visit [facility] [address] [place] [address] Beto Kelly MD [address] [phone] Scheduled Procedures Name Priority Associated Diagnoses Date/Ti [...] documented as of this encounter Care Teams Guest Services Associate Relationship Specialty Start Date End Date Jeffrey Schuster MD [address] [place] [id number] PCP - General 10/21/20 documented as of this encounter
--- OUTSIDE RECORDS SUMMARY | 2025-02-17 08:34 | XMS_ITS | Encounter Summary ---
Author Organization Healthcare Address [address] [place] [address] Care Team Providers Care Hand Embroiderer Name Role Phone Jeffrey Schuster MD Primary Care Provider [phone] Reason for Visit * Reason Onset Date Comments HCN - Patient Message 12/30/2024 Encounter Details Date Type Department Care Team (Late st Contact Info) Description 12/30/2024 Telephone [facility] [address] [place] [address] Cassandra Diaz MD [address] [address] HCN - Patient Message Social [...] and needs to r/s Best contact number: [phone] (mobile) Optimal time of day to reach [...] Description 03/26/2025 2:30 PM EST Office Visit [facility] [address] [place] [address] Beto Kelly MD [address] [address] Scheduled Procedures Name Priority Associated [...] documented as of this encounter Care Teams Hand Embroiderer Relationship Specialty Start Date End Date Jeffrey Schuster MD [address] [place] [address] PCP - General 10/21/20 documented as of this encounter
[2025-02-17 08:58] LABS: Hematocrit 34.3 % (37.0-47.0); Hemoglobin 11.1 g/dL (12.2-16.2); Immature Granulocytes % 0.2 %; Mean Corpuscular HGB Conc 32.4 g/dL (31.8-35.4); Mean Corpuscular Hemoglobin 31.8 pg (27.0-31.2); Mean Corpuscular Volume 98.3 fl (81-99); Nucleated Red Blood Cells % 0 %; Platelet Count 128 K/mm3 (142-424); Red Blood Count 3.49 M/mm3 (4.20-5.40); Red Cell Distribution Width-SD 51.2 fL; White Blood Count 4.4 K/mm3 (4.8-10.8)
[2025-02-17 11:48] LABS: Alanine Aminotransferase 26 U/L (12-78); Albumin Level 3.8 g/dl (3.5-5.0); Alkaline Phosphatase 76 U/L (38-126); Aspartate Amino Transferase 29 U/L (14-36); Bilirubin,Direct 0.5 mg/dl (0.0-0.4); Bilirubin,Indirect 0.1 mg/dL (0.0-0.9); Bilirubin,Total 0.6 mg/dl (0.2-1.3); Bilirubin,Unconjugated 0.1 mg/dL (0.0-1.1); Cholesterol 172 mg/dl (140-200); HDL Cholesterol 65 mg/dl (40-60); Total Protein,Serum 6.5 g/dl (6.3-8.2); Triglycerides 133 mg/dl (30-150)
== END 2025-02-17 23:59 | disposition home or self-care (01) ==
LOC: LAB 08:29
PROVIDERS: Internal Medicine Medical Oncology; PCP Family Medicine; Visit Provider Physician Assistant
DX: E03.9 Hypothyroidism, unspecified (principal); I25.10 Atherosclerotic heart disease of native coronary artery without angina pectoris; D64.9 Anemia, unspecified; E78.5 Hyperlipidemia, unspecified
CPT/HCPCS: 36415; 80061; 80076; 85025